=== PATIENT | female | born 1965 | race Caucasian/White ===

== ENCOUNTER 2018-09-15 11:50 | Inpatient (IN) | payer OTHER ==
--- OUTSIDE RECORDS SUMMARY | 2018-09-15 11:53 | XMS REPORT ---
:1965 Author Organization eClinicalWorks Care Team Providers Name Role Phone Rose Marie Landis Provider Role Unavailable Allergies, Adverse Reactions, Alerts Substance Reaction Event Type N.K.D.A. 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 Assessment Tachycardia R00.0 Active Problem Hypertension I10 Active Problem Hypothyroidism E03.9 Active Problem Hyperlipidemia E78.5 Active Problem Chronic obstructive pulmon disease w J44.0 Active acute lower resp infct Problem Abnormal kidney function study R94.4 Active Problem Hyponatremia E87.1 Active Problem Goiter E04.9 Active Medications Medication Code Code Instructions Start End Status Dosage System Date Date Anoro Ellipta [facility] [place] [id number] 62.5mcg/25 mcg Active not Orally defined Levothyroxine ND 30994215423 75 MCG Orally Active 1 tablet Sodium Once a day on an empty stomach in the morning Albuterol [facility] [place] [address]-63 108 (90 Base) Active 2 puffs as Sulfate HFA MCG/ACT needed Inhalation every 6 hrs Spiriva [facility] [place] 96677237529 18 MCG Active 1 capsule HandiHaler Inhalation Once a day PredniSONE [facility] [place] 13284800638 10 MG Orally Active 1 tablet Once a day Suboxone [facility] [place] [address]-16 8-2 MG Active 1 film Sublingual bid under the tongue and allow to dissolve Metoprolol [facility] [place] [id number] 25 MG Orally April 28, Active 1 tablet Succinate ER Once a day 2018 Results No Known Results Summary Purpose eClinicalWorks Submission
--- NOTE | 2018-09-15 14:20 | EDPHYS ---
Physician Documentation [facility] Name: Samantha Smart Age: 53 yrs Sex: Female : 1965 Arrival Date: 09/15/2018 Time: 11:57 Bed 25 Private MD: None, None ED Physician Stewart Reich HPI: 09/15 13:45 This 53 yrs old Female presents to ER via Ambulatory with complaints of COPD michelle Exacerbation, Vomiting, Headache. 13:45 The patient presents to the emergency department with nausea. Onset: The michelle symptoms/episode began/occurred just prior to arrival. 13:46 The patient has shortness of breath with light activity. The patient's shortness of michelle breath is aggravated by coughing, supine position, talking, walking. The patient complains of pain to the forehead, left temporal area and right temporal area. 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 - Social history:: Smoking status: Patient/guardian denies using tobacco. - Ebola Screening: : Patient negative for fever greater than or equal to 101.5 degrees Fahrenheit, and additional compatible Ebola Virus Disease symptoms Patient denies exposure to infectious person Patient denies travel to an Ebola-affected area in the 21 days before illness onset No symptoms or risks identified at this time. - Family history:: not pertinent. ROS: 13:46 Constitutional: Negative for fever, chills, and weight loss, Eyes: Negative for injury, michelle pain, redness, and discharge, ENT: Negative for injury, pain, and discharge, Neck: Negative for injury, pain, and swelling, Cardiovascular: Negative for chest pain, palpitations, and edema, Abdomen/GI: Negative for abdominal pain, nausea, vomiting, diarrhea, and constipation, Back: Negative for injury and pain, : Negative for injury, bleeding, discharge, and swelling, MS/Extremity: Negative for injury and deformity, Skin: Negative for injury, rash, and discoloration, Psych: Negative for depression, anxiety, suicide ideation, homicidal ideation, and hallucinations, Allergy/Immunology: Negative for hives, rash, and allergies, Endocrine: Negative for neck swelling, polydipsia, polyuria, polyphagia, and marked weight changes. 13:46 Respiratory: Positive for cough, shortness of breath, wheezing, inspiratory, expiratory. Exam: 13:46 Constitutional: This is a well developed, well nourished patient who is awake, alert, michelle and in no acute distress. Head/Face: Normocephalic, atraumatic. Eyes: Pupils equal round and reactive to light, extra-ocular motions intact. Lids and lashes normal. Conjunctiva and sclera are non-icteric and not injected. Cornea within normal limits. Periorbital areas with no swelling, redness, or edema. ENT: Nares patent. No nasal discharge, no septal abnormalities noted. Tympanic membranes are normal and external auditory canals are clear. Oropharynx with no redness, swelling, or masses, exudates, or evidence of obstruction, uvula midline. Mucous membranes moist. Neck: Trachea midline, no thyromegaly or masses palpated, and no cervical lymphadenopathy. Supple, full range of motion without nuchal rigidity, or vertebral point tenderness. No Meningismus. Chest/axilla: Normal chest wall appearance and motion. Nontender with no deformity. No lesions are appreciated. Abdomen/GI: Soft, non-tender, with normal bowel sounds. No distension or tympany. No guarding or rebound. No evidence of tenderness throughout. Back: No spinal tenderness. No costovertebral tenderness. Full range of motion. Skin: Warm, dry with normal turgor. Normal color with no rashes, no lesions, and no evidence of cellulitis. MS/ Extremity: Pulses equal, no cyanosis. Neurovascular intact. Full, normal range of motion. Neuro: Awake and alert, GCS 15, oriented to person, place, time, and situation. Cranial nerves II-XII grossly intact. Motor strength 5/5 in all extremities. Sensory grossly intact. Cerebellar exam normal. Normal gait. Psych: Awake, alert, with orientation to person, place and time. Behavior, mood, and affect are within normal limits. 13:46 Cardiovascular: Rate: normal, Rhythm: regular, Pulses: Pulses are 4+ in bilateral radial, brachial, femoral, popliteal, posterior tibial and and dorsalis pedis arteries.. Heart sounds: normal, Edema: is not appreciated. 13:46 Respiratory: mild respiratory distress is noted, Respirations: labored breathing, that is mild, that is moderate, Breath sounds: decreased breath sounds, rhonchi, that are mild, that are moderate, wheezing: inspiratory expiratory 13:46 Musculoskeletal/extremity: DVT Exam: No signs of deep vein thrombosis. no pain, no michelle swelling, no tenderness, negative Homans' sign noted on exam, no appreciated bluish discoloration, no erythema, no increased warmth. Vital Signs: 12:13 BP 109 / 93; Pulse 129; Resp 28 S; Temp 98.9(TE); Pulse Ox 93% on 2 lpm NC; Weight iw 68.49 kg; Height 5 ft. 2 in. (157.48 cm); Pain 10/10; 12:53 Pulse 109; Resp 19; Pulse Ox 93% on 2 lpm NC; aj1 13:45 BP 120 / 82; Pulse 98; Resp 20; Pulse Ox 96% on 2 lpm NC; aj1 14:45 BP 128 / 84; Pulse 98; Resp 18; Pulse Ox 95% on 2 lpm NC; aj1 15:59 BP 127 / 79; Pulse 96; Resp 15; Pulse Ox 100% on Nebulizer Mask; aj1 17:22 BP 125 / 80; Pulse 101; Resp 18; Pulse Ox 100% on 2 lpm NC; aj1 12:13 Body Mass Index 27.62 (68.49 kg, 157.48 cm) MDM: 12:58 Patient medically screened. [facility] 13:49 Data reviewed: vital signs, nurses notes, lab test result(s), EKG, radiologic studies, michelle plain films. 09/15 13:45 Order name: Basic Metabolic Panel; Complete Time: 16:08 [facility] 09/15 13:45 Order name: CBC with Diff; Complete Time: 16:08 [facility] 09/15 13:45 Order name: LFT's; Complete Time: 16:08 [facility] 09/15 13:45 Order name: Magnesium; Complete Time: 16:08 [facility] 09/15 13:45 Order name: NT PRO-BNP; Complete Time: 16:08 [facility] 09/15 13:45 Order name: PT-INR; Complete Time: 16:08 [facility] 09/15 13:45 Order name: Troponin (emerg Dept Use Only); Complete Time: 16:08 [facility] 09/15 13:45 Order name: XRAY Chest (1 view) [facility] 09/15 13:45 Order name: Blood Culture Adult (2) [facility] 09/15 13:45 Order name: CT Head Brain wo Cont [facility] 09/15 13:45 Order name: Procalcitonin; Complete Time: 16:08 [facility] 09/15 14:30 Order name: CT; Complete Time: 16:08 [facility] 09/15 15:16 Order name: Lactate [facility] 09/15 17:23 Order name: Lactate [facility] 09/15 13:45 Order name: EKG; Complete Time: 13:47 [facility] 09/15 13:45 Order name: Cardiac monitoring; Complete Time: 13:53 [facility] 09/15 13:45 Order name: EKG - Nurse/Tech; Complete Time: 13:53 [facility] 09/15 13:45 Order name: IV Saline Lock; Complete Time: 16:12 [facility] 09/15 13:45 Order name: Labs collected and sent; Complete Time: 16:12 [facility] 09/15 13:45 Order name: O2 Per Protocol; Complete Time: 13:53 [facility] 09/15 13:45 Order name: O2 Sat Monitoring; Complete Time: 13:53 [facility] 09/15 15:03 Order name: RAD; Complete Time: 16:08 [facility] 09/15 16:38 Order name: Labs - recollect needed; Complete Time: 17:19 bd Administered Medications: 15:52 Drug: Albuterol - atroVENT (3:1) (2.5 mg - 0.5 mg) 3 ml Route: Nebulizer; aj1 16:41 Follow up: Response: No adverse reaction aj1 16:08 Drug: SOLU-Medrol 125 mg Route: IVP; Site: right hand; aj1 16:40 Follow up: Response: No adverse reaction aj1 16:09 Drug: NS 0.9% 1000 ml Route: IV; Rate: 125 ml/hr; Site: right hand; aj1 16:09 Drug: levofloxacin 500 mg Volume: 100 ml; Route: IVPB; Infused Over: 60 mins; Site: aj1 right hand; 17:19 Follow up: IV Status: Completed infusion; IV Intake: 100ml aj 16:10 Drug: fentaNYL (PF) 50 mcg Route: IVP; Site: right hand; aj 16:41 Follow up: Response: No adverse reaction [facility] 16:10 Drug: Zofran 4 mg Route: IVP; Site: right hand; aj1 16:40 Follow up: Response: No adverse reaction [facility] Disposition: 09/15/18 14:19 Hospitalization ordered by Heri Ambrose for Inpatient Admission. Preliminary diagnosis are Chronic obstructive pulmonary disease with (acute) exacerbation, Headache, Hypoxemia, Acute maxillary sinusitis, unspecified, Chronic maxillary sinusitis. - Bed requested for Telemetry/MedSurg (Inpatient). - Status is Inpatient Admission. aj1 - Condition is Fair. - Problem is new. - Symptoms have improved. UTI on Admission? No Signatures: Dispatcher [employer] EDMS Mirna Us Angela, RN RN aj Janna Gonzalez RN RN Stewart Reich MD MD cha Williams, Irene, RN RN Corrections: (The following items were deleted from the chart) 16:09 14:19 Hospitalization Ordered by Heri Ambrose MD for Inpatient Admission. Preliminary [facility] diagnosis is Chronic obstructive pulmonary disease with (acute) exacerbation; Headache; Hypoxemia. Bed requested for Telemetry/MedSurg (Inpatient). Status is Inpatient Admission. Condition is Fair. Problem is new. Symptoms have improved. UTI on Admission? No. michelle 16:28 16:09 09/15/2018 14:19 Hospitalization Ordered by Heri Ambrose MD for Inpatient Admission. Preliminary diagnosis is Chronic obstructive pulmonary disease with (acute) exacerbation; Headache; Hypoxemia; Acute maxillary sinusitis, unspecified; Chronic maxillary sinusitis. Bed requested for Telemetry/MedSurg (Inpatient). Status is Inpatient Admission. Condition is Fair. Problem is new. Symptoms have improved. UTI on Admission? No. michelle 17:43 16:28 09/15/2018 14:19 Hospitalization Ordered by Heri Ambrose MD for Inpatient aj1 Admission. Preliminary diagnosis is Chronic obstructive pulmonary disease with (acute) exacerbation; Headache; Hypoxemia; Acute maxillary sinusitis, unspecified; Chronic maxillary sinusitis. Bed requested for Telemetry/MedSurg (Inpatient). Status is Inpatient Admission. Condition is Fair. Problem is new. Symptoms have improved. UTI on Admission? No. dw
--- NOTE | 2018-09-15 14:20 | ER ---
Nurse's Notes [facility] Name: Samantha Smart Age: 53 yrs Sex: Female : 1965 Arrival Date: 09/15/2018 Time: 11:57 Bed 25 Private MD: None, None Diagnosis: Chronic obstructive pulmonary disease with (acute) exacerbation;Headache;Hypoxemia;Acute maxillary sinusitis, unspecified;Chronic maxillary sinusitis Presentation: 09/15 12:09 Presenting complaint: Patient states: woke up and couldn't breathe, massive headache, iw indigestion in chest X 2 days that is constant, had a panic attack this morning, had migraine all week, hx of COPD, on home O2 2L NC, normally runs right above 90%, now is 93%, main complaint is her headache this morning, rates pain 10/10 in frontal area, hx of migraines but not on medication. Transition of care: patient was not received from another setting of care. Onset of symptoms was September 15, 2018. Risk Assessment: Do you want to hurt yourself or someone else? Patient reports no desire to harm self or others. Initial Sepsis Screen: Does the patient meet any 2 criteria? No. Patient's initial sepsis screen is negative. Does the patient have a suspected source of infection? No. Patient's initial sepsis screen is negative. Care prior to arrival: None. 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 - Social history:: Smoking status: Patient/guardian denies using tobacco. - Ebola Screening: : Patient negative for fever greater than or equal to 101.5 degrees Fahrenheit, and additional compatible Ebola Virus Disease symptoms Patient denies exposure to infectious person Patient denies travel to an Ebola-affected area in the 21 days before illness onset No symptoms or risks identified at this time. - Family history:: not pertinent. Screenin:53 Abuse screen: Denies threats or abuse. Denies injuries from another. Nutritional aj1 screening: No deficits noted. Tuberculosis screening: No symptoms or risk factors identified. 17:23 Fall Risk No fall in past 12 months (0 pts). No secondary diagnosis (0 pts). IV access aj1 (20 points). Ambulatory Aid- None/Bed Rest/Nurse Assist (0 pts). Gait- Weak (10 pts.). Mental Status- Oriented to own ability (0 pts). Total Turner Fall Scale indicates Low Risk Score (25-44 pts). As available Patient and Family Educated on Fall Prevention Program and strategies. Assessment: 12:53 General: Appears in no apparent distress. uncomfortable, Behavior is calm, cooperative, aj1 appropriate for age. Pain: Complains of pain in forehead and chest Pain does not radiate. Pain currently is 10 out of 10 on a pain scale. Quality of pain is described as pressure, Pain began Headache for the past week, chest pain for the past 2 days Is intermittent. Neuro: Level of Consciousness is awake, alert, obeys commands. Cardiovascular: Reports chest pain, shortness of breath, Denies palpitations, Heart tones S1 S2 present Patient's skin is warm and dry. Respiratory: Reports shortness of breath on exertion cough that is productive, Airway is patent Respiratory effort is even, unlabored, Respiratory pattern is regular, symmetrical, Breath sounds with wheezes bilaterally. the patient has mild shortness of breath. GI: Abdomen is non-distended, Bowel sounds present X 4 quads. Abd is soft and non tender X 4 quads. : No signs and/or symptoms were reported regarding the genitourinary system. EENT: No signs and/or symptoms were reported regarding the EENT system. Derm: No signs and/or symptoms reported regarding the dermatologic system. Skin is pink, warm \T\ dry. normal. Musculoskeletal: No signs and/or symptoms reported regarding the musculoskeletal system. Circulation, motion, and sensation intact. 13:50 Reassessment: Patient appears in no apparent distress at this time. No changes from aj1 previously documented assessment. Patient and/or family updated on plan of care and expected duration. Pain level reassessed. Patient is alert, oriented x 3, equal unlabored respirations, skin warm/dry/pink. 14:50 Reassessment: Patient and/or family updated on plan of care and expected duration. Pain aj1 level reassessed. General: Appears in no apparent distress. comfortable, Behavior is calm, cooperative, appropriate for age. Neuro: Level of Consciousness is awake, alert, obeys commands. Cardiovascular: Patient's skin is warm and dry. Respiratory: Airway is patent Respiratory effort is even, unlabored, Respiratory pattern is regular, symmetrical. GI: Abdomen is non-distended, No vomiting noted since patient's arrival to the ER. Derm: Skin is pink, warm \T\ dry. normal. Musculoskeletal: Circulation, motion, and sensation intact. 15:57 Reassessment: Patient appears in no apparent distress at this time. No changes from aj1 previously documented assessment. Patient and/or family updated on plan of care and expected duration. Pain level reassessed. Patient is alert, oriented x 3, equal unlabored respirations, skin warm/dry/pink. 17:20 Reassessment: Patient and/or family updated on plan of care and expected duration. Pain aj1 level reassessed. General: Appears in no apparent distress. comfortable, Behavior is calm, cooperative, appropriate for age. Neuro: Level of Consciousness is awake, alert, obeys commands. Cardiovascular: Patient's skin is warm and dry. Respiratory: Airway is patent Respiratory effort is even, unlabored, Respiratory pattern is regular, symmetrical. GI: Abdomen is non-distended. Derm: No signs and/or symptoms reported regarding the dermatologic system. Skin is pink, warm \T\ dry. normal. Musculoskeletal: No signs and/or symptoms reported regarding the musculoskeletal system. Circulation, motion, and sensation intact. Vital Signs: 12:13 BP 109 / 93; Pulse 129; Resp 28 S; Temp 98.9(TE); Pulse Ox 93% on 2 lpm NC; Weight iw 68.49 kg; Height 5 ft. 2 in. (157.48 cm); Pain 10/10; 12:53 Pulse 109; Resp 19; Pulse Ox 93% on 2 lpm NC; aj1 13:45 BP 120 / 82; Pulse 98; Resp 20; Pulse Ox 96% on 2 lpm NC; aj1 14:45 BP 128 / 84; Pulse 98; Resp 18; Pulse Ox 95% on 2 lpm NC; aj1 15:59 BP 127 / 79; Pulse 96; Resp 15; Pulse Ox 100% on Nebulizer Mask; aj1 17:22 BP 125 / 80; Pulse 101; Resp 18; Pulse Ox 100% on 2 lpm NC; aj1 12:13 Body Mass Index 27.62 (68.49 kg, 157.48 cm) iw ED Course: 11:57 Patient arrived in ED. sb2 11:58 None, None is Private Physician. sb2 12:12 Triage completed. iw 12:13 Arm band placed on. iw 12:31 Christa Webb, HUMAIRA is Primary Nurse. aj1 12:50 Missed attempt(s): 22 gauge in left antecubital area. Bleeding controlled, band aid aj1 applied, catheter tip intact. 12:53 Patient has correct armband on for positive identification. Bed in low position. Call aj1 light in reach. Side rails up X 1. hall monitor on. Pulse ox on. NIBP on. 12:53 No provider procedures requiring assistance completed. aj1 12:57 Missed attempt(s): 24 gauge in left antecubital area. Bleeding controlled, band aid aj1 applied, catheter tip intact. 12:58 Stewart Reich MD is Attending Physician. michelle 14:18 Heri Ambrose MD is Hospitalizing Provider. michelle 14:20 X-ray completed. Portable x-ray completed in exam room. Patient tolerated procedure ls3 well. 15:00 Initial lab(s) drawn, by me, sent to lab. First set of blood cultures drawn by me. sg Inserted saline lock: 24 gauge in right hand, using aseptic technique. Blood collected. 15:15 Second set of blood cultures drawn by me. sg 15:59 Lactate Sent. jp3 15:59 Lab(s) recollected, by me, sent to lab. jp3 17:24 Patient admitted, IV remains in place. aj1 17:25 Report given to HUMAIRA Thomson on 2nd floor. aj1 Administered Medications: 15:52 Drug: Albuterol - atroVENT (3:1) (2.5 mg - 0.5 mg) 3 ml Route: Nebulizer; aj1 16:41 Follow up: Response: No adverse reaction aj1 16:08 Drug: SOLU-Medrol 125 mg Route: IVP; Site: right hand; aj1 16:40 Follow up: Response: No adverse reaction aj1 16:09 Drug: NS 0.9% 1000 ml Route: IV; Rate: 125 ml/hr; Site: right hand; aj1 16:09 Drug: levofloxacin 500 mg Volume: 100 ml; Route: IVPB; Infused Over: 60 mins; Site: aj right hand; 17:19 Follow up: IV Status: Completed infusion; IV Intake: 100ml aj1 16:10 Drug: fentaNYL (PF) 50 mcg Route: IVP; Site: right hand; aj1 16:41 Follow up: Response: No adverse reaction aj1 16:10 Drug: Zofran 4 mg Route: IVP; Site: right hand; aj1 16:40 Follow up: Response: No adverse reaction aj1 Intake: 17:19 IV: 100ml; Total: 100ml. aj1 Outcome: 14:19 Decision to Hospitalize by Provider. michelle 17:41 Admitted to Tele accompanied by tech, via stretcher. aj1 17:41 Condition: stable 17:41 Discharge instructions given to patient, Instructed on the need for admit, Demonstrated understanding of instructions. 17:43 Patient left the ED. aj1 Signatures: Christa Webb RN RN aj1 Fabian Kwan, RN Stewart Encinas MD MD cha Williams, Irene, RN Liliana Duke2 Jose Carlos Mckinney jp3 Angela Morgan ls3
--- NOTE | 2018-09-15 14:29 | RAD REPORT ---
EXAM DESCRIPTION: CT - Head Brain Wo Cont - 09/15/2018 2:20 pm CLINICAL HISTORY: Severe headache COMPARISON: December 2010 TECHNIQUE: Axial 5 mm thick images of the head were obtained without IV contrast. All CT scans are performed using dose optimization technique as appropriate and may include automated exposure control or mA/KV adjustment according to patient size. FINDINGS: No intracranial hemorrhage, mass, edema or shift of mid-line structures. No acute infarcti on changes seen. No abnormal extra-axial fluid collections. Ventricles are normal. Mastoid air cells are clear. Air-fluid level present in the left maxillary sinus along with sclerotic thickened maxillary sinus courtney. No acute bony findings. IMPRESSION: No intracranial abnormality. Acute and chronic left maxillary sinusitis similar to 2010.
--- NOTE | 2018-09-15 15:02 | RAD REPORT ---
EXAM DESCRIPTION: RAD - Chest Single View - 09/15/2018 2:46 pm CLINICAL HISTORY: Cough, fever, congestion COMPARISON: May 2017 TECHNIQUE: AP portable chest image was obtained . FINDINGS: Lungs are clear. Heart and vasculature are normal. No measurable pleural effusion and no p neumothorax. No acute bony abnormality seen. No acute aortic findings suspected. IMPRESSION: No acute cardiopulmonary process.
[2018-09-15 15:31] LABS: Absolute Lymphocytes (CBC) 0.9 K/uL (0.7-4.9); Absolute Monocytes 0.7 K/uL (0.1-1.3); Absolute Neutrophil 5.4 K/uL (1.8-8.0); Basophils % 0.9 % (0-1.3); Eosinophils % 0.4 % (0-4.4); Hematocrit 45.8 % (36.0-45.0); Lymphocytes % 12.4 % (15.3-44.8); MCH 31.9 pg (27.0-35.0); MCV 96.1 fL (80-100); MPV 9.5 fL (7.6-11.3); Monocytes % 10.2 % (3.3-12.3); RBC Red Blood Cell Count 4.76 M/uL (3.86-4.86)
[2018-09-15 15:36] LABS: Protime INR 1.07
[2018-09-15] MEDS ORDERED: METHYLPREDNISOLONE 125 MG INJ ONE (15:38)
[2018-09-15] MEDS ORDERED: ALBUTEROL 2.5 MG/3 ML NEB SOL ONE (15:38)
[2018-09-15] MEDS ORDERED: ONDANSETRON 4 MG/2 ML VIAL ONE (15:39)
[2018-09-15] MEDS ORDERED: FENTANYL CITR 100 MCG/2 ML ONE (15:39)
[2018-09-15] MEDS ORDERED: NA CHLORIDE 0.9% 1,000 ML ONE (15:39)
[2018-09-15] MEDS ORDERED: IPRATROPIUM BROM 0.5MG/2.5ML ONE (15:39)
[2018-09-15] MEDS ORDERED: Levofloxacin500mg IV 500 MG/100 ML BAG IV ONE (15:52)
--- NOTE | 2018-09-15 16:05 | EKG ---
Test Date: 2018-09-15 Test Time: 12:27:54 Instructor Bridge: ARNOLD MEASUREMENT RESULTS: Intervals: Rate: 125 MI: 162 QRSD: 52 QT: 304 QTc: 438 [place]: P: 79 MI: 162 QRS: 79 T: 90 INTERPRETIVE STATEMENTS: Sinus tachycardia Right atrial enlargement Anteroseptal infarct, age undetermined Abnormal ECG Compared to ECG 06/19/2017 06:26:55 Atrial abnormality now present Myocardial infarct finding now present Sinus rhythm no longer present Electronically Signed On 09-15-18 16:05:12 PERIODICALS LIBRARY ASSISTANT by Ken Pruitt
[2018-09-15 16:06] LABS: ALT/SGPT 79 U/L (12-78); AST/SGOT 78 U/L (15-37); Albumin 3.4 g/dL (3.4-5.0); Alkaline Phosphatase 102 U/L (45-117); BUN Blood Urea Nitrogen 17 mg/dL (7-18); Bicarbonate 32 mmol/L (21-32); Bilirubin Direct 0.2 mg/dL (0-0.2); Bilirubin Total 0.6 mg/dL (0.2-1.0); Glucose Level 93 mg/dL (74-106); Magnesium 2.1 mg/dL (1.8-2.4); NT PRO-BNP 302 pg/mL (<125); Potassium 3.8 mmol/L (3.5-5.1); Sodium Level 139 mmol/L (136-145); Troponin (Emerg Dept Use Only) < 0.02 ng/mL (0.0-0.045)
[2018-09-15] MEDS: ACETAMINOPHEN 500 MG TAB PO PRN (18:52)
[2018-09-15] MEDS: ENOXAPARIN 40 MG/0.4 ML SQ SCH (18:53)
[2018-09-15 18:56] VITALS: BMI 27.8
[2018-09-15] MEDS ORDERED: METHYLPREDNISOLONE 125 MG INJ IV SCH (19:00)
--- NOTE | 2018-09-15 19:42 | P.HP ---
Patient History Date of Service: 09/15/18 Reason for admission: Shortness of breath History of Present Illness: This is a 53-year-old female with history of COPD on home oxygen of 2 L, chronic back pain admitted for shortness of breath. Starting this morning, stated that her breathing had gotten worse, she could hardly breathe even after using her inhaler and medications which is why she came to the ER. She denies any fever, chills, cough, chest pain, nausea or vomiting, abdominal pain, vision changes. She does endorse a headache at this time. In the ER, her chest x-ray was normal, her labs were stable, she was hemodynamically stable though she was still having some trouble breathing. At the time of my exam, she was getting a breathing treatment, was not able to talk in complete sentences though stated that her symptoms have slightly improved. She is being admitted for further treatment of COPD exacerbation Allergies iodine Allergy (Verified 01/19/17 14:26) Unknown Sulfa (Sulfonamide Antibiotics) Allergy (Verified 01/19/17 14:26) Unknown band-aid Allergy (Uncoded 01/19/17 14:26) Rash Home Medications: Tiotropium [Spiriva Handihaler*] 18 mcg IH DAILY 01/19/17 Fluticasone/Salmeterol [Advair 250/50 Diskus*] 1 puff IH BID #1 disk 01/24/17 predniSONE [Deltasone*] 10 mg PO DAILY #14 tab 01/24/17 Buprenorphine HCl/Naloxone HCl [Suboxone 8 mg-2 mg Sl Film] 1 tab PO BID Esomeprazole Mag Trihydrate [Nexium] 1 cap PO DAILY 06/18/17 levoFLOXacin [Levaquin*] 500 mg PO DAILY #7 tab 06/20/17 - Past Medical/Surgical History Diabetic: No -: COPD -: Chronic steroid use -: Chronic pain -: Tobacco abuse -: Hysterectomy -: Appendectomy -: Tonsillectomy Psychosocial/ Personal History: The patient is single. She has 3 children. - Social History Alcohol use: No CD- Drugs: No Caffeine use: Yes Review of Systems General: Unremarkable Eyes: Unremarkable ENT: Unremarkable Respiratory: Shortness of Breath, As per HPI Cardiovascular: Unremarkable Gastrointestinal: Unremarkable Genitourinary: Unremarkable Musculoskeletal: Unremarkable Integumentary: Unremarkable Neurological: Unremarkable Physical Examination - Vital Signs Temperature: 97.5 F Blood Pressure: 103/69 Pulse: 91 Respirations: 20 Pulse Ox (%): 92 - Physical Exam General: Alert, In no apparent distress, Oriented x3 HEENT: Atraumatic, PERRLA, Mucous membr. moist/pink, EOMI, Sclerae nonicteric Neck: Supple, 2+ carotid pulse no bruit, No LAD, Without JVD or thyroid abnormality Respiratory: Diminished, Crackles/rales, Expiratory wheezes, Inspiratory wheezes Cardiovascular: Regular rate/rhythm, Normal S1 S2 Gastrointestinal: Normal bowel sounds, No tenderness Musculoskeletal: No tenderness Integumentary: No rashes Neurological: Normal gait, Normal speech, Normal strength at 5/5 x4 extr, Normal tone, Normal affect Lymphatics: No axilla or inguinal lymphadenopathy Assessment and Plan - Plan This is a 53-year-old female with: COPD exacerbation Chronic back pain Elevated LFTs Admit to the floor, with tele. Continue breathing treatments as needed, oxygen as needed. IV Steroids q.6 ordered. Will restart home medications once reconciled. May need CT chest and pulmonary consult if no improvement noted. Monitor labs, including LFTs tomorrow morning. May need further evaluation if continues to be elevated. Disposition: Continue to monitor, pending symptomatic improvement. - Advance Directives Does patient have a Living Will: No Does patient have a Durable POA for Healthcare: No Physician Review: Patient Assessed, Agree with Above Assessment and Plan Time Spent Managing Pts Care (In Minutes): 55
[2018-09-15] MEDS: ALBUTEROL 2.5 MG/3 ML NEB SOL NEB SCH (19:59)
[2018-09-15] MEDS: IPRATROPIUM BROM 0.5MG/2.5ML NEB SCH (19:59)
[2018-09-15] MEDS ORDERED: POTASSIUM CL SA 10 MEQ TAB PO ONE (21:00)
[2018-09-15] MEDS ORDERED: PNEUMOCOCCAL VACCINE 0.5 ML IMVAC ONE (23:00)
[2018-09-15] MEDS ORDERED: INFLUENZA VACCINE (for 3y+) 0.5 ML DOSE IMVAC ONE (23:00)
[2018-09-15] MEDS: METHYLPREDNISOLONE 125 MG INJ IV SCH (23:20)
[2018-09-16] MEDS: ALBUTEROL 2.5 MG/3 ML NEB SOL NEB SCH ×4 (01:06→19:57)
[2018-09-16] MEDS: IPRATROPIUM BROM 0.5MG/2.5ML NEB SCH ×4 (01:06→19:57)
[2018-09-16] MEDS: METHYLPREDNISOLONE 125 MG INJ IV SCH ×2 (05:29→11:47)
[2018-09-16] MEDS: ONDANSETRON 4 MG/2 ML VIAL IV PRN (05:31)
[2018-09-16 05:55] LABS: Absolute Lymphocytes (CBC) 0.7 K/uL (0.7-4.9); Absolute Monocytes 0.1 K/uL (0.1-1.3); Absolute Neutrophil 3.6 K/uL (1.8-8.0); Basophils % 0.3 % (0-1.3); Hematocrit 41.8 % (36.0-45.0); Lymphocytes % 15.1 % (15.3-44.8); MCV 96.8 fL (80-100); Monocytes % 2.4 % (3.3-12.3); RBC Red Blood Cell Count 4.32 M/uL (3.86-4.86)
[2018-09-16 06:19] LABS: Albumin 2.9 g/dL (3.4-5.0); Bilirubin Total 0.3 mg/dL (0.2-1.0); Magnesium 2.2 mg/dL (1.8-2.4); Phosphorus 3.3 mg/dL (2.5-4.9); Potassium 4.8 mmol/L (3.5-5.1); Protein, Total 6.5 g/dL (6.4-8.2)
[2018-09-16] MEDS: ACETAMINOPHEN 500 MG TAB PO PRN (07:42)
[2018-09-16 08:45] LABS: Blood Morphology Comment NOT SEEN (NOT SEEN); Urine White Blood Cell Casts OK
[2018-09-16 08:46] LABS: Platelet Estimate DECR
--- NOTE | 2018-09-16 09:04 | RAD REPORT ---
EXAM DESCRIPTION: Omaira Beatty (2 Views)09/16/2018 6:35 am CLINICAL HISTORY: Shortness of breath COMPARISON: September 15 FINDINGS: The lungs are markedly hyperaerated. The lungs appear clear of acute infiltrate. The heart is normal size IMPRESSION: COPD without visualization of an acute abnormality
[2018-09-16] MEDS: PROMETHAZINE 25 MG/ML VIAL IV PRN ×2 (09:40→19:40)
[2018-09-16] MEDS: ENOXAPARIN 40 MG/0.4 ML SQ SCH (09:40)
[2018-09-16] MEDS: BUPRENORPHINE HCL PO SCH (21:00)
[2018-09-16] MEDS: NALOXONE HCL PO SCH (21:00)
[2018-09-16] MEDS: HOME MED 1 EA UNK (Fluticasone/Salmeterol [Advair 250/50 Diskus*] 1 PUFF) IH SCH (21:00)
[2018-09-16] MEDS: METHYLPREDNISOLONE 40 MG INJ IV SCH (21:36)
--- NOTE | 2018-09-16 21:52 | PN ---
Date of Progress Note: 09/16/2018 Subjective: The patient was seen and examined. Chart reviewed, and case discussed with RN. The pat vidhya overall states she is feeling better. Review of Systems: Negative except as above. Medications: List reviewed. Physical Examination: Vital Signs: Temperature 97.8, heart rate 68, blood pressure 119/64, respirations 17, and O2 94% on 2 L via nasal cannula. General: Awake, alert, and oriented x3. Some mild respiratory distress. CV: S1, S2. Regular rate and rhythm. Peripheral pulses present. No murmurs. Respiratory: Diminished breath sounds. Some mild wheezing. No use of accessory muscles. No strido r. Gastrointestinal: Abdomen is soft, nontender, and nondistended. Positive bowel sounds. Extremities: No clubbing, cyanosis, or edema. Neurologic: Nonfocal. Cranial nerves 2-12 intact grossly. Speech is normal. Skin: No rashes. Normal skin turgor. Laboratory Data: Sodium 136, potassium 4.8, chloride 102, CO2 28, BUN 19, creatinine 1, glucose 131, calcium 8.3, and phosphorus 3.3, and magnesium 2.2. WBC 4.3, H and H 13.8 and 41.8, platelets 127, and neutrophils 82%. Chest x-ray, I personally reviewed, shows COPD, no acute infiltrate. Assessment And Plan: A 53-year-old female with: 1.Acute COPD exacerbation. We will continue with IV steroids and nebulizer treatments. Consult Pul monology. Use supplemental oxygen as needed. 2.Chronic back pain, midline, without sciatica. 3.Elevated liver enzymes, improving. 4.Chronic steroid use. 5.Gastroesophageal reflux disease without esophagitis. Continue PPI. 6.Nicotine dependence with cigarette smoking, continuous. Counseled. Follow up with pulmonology recs. Continue with current treatment. Blood cultures negative to date. Chest x-ray reviewed, clear of any infiltrates. Discharge in the next 24-48 hours depending on clin ical response. SA/MODL Voice ID: [id number] Report ID: [id number]
[2018-09-17] MEDS: ALBUTEROL 2.5 MG/3 ML NEB SOL NEB SCH ×4 (01:26→19:35)
[2018-09-17] MEDS: IPRATROPIUM BROM 0.5MG/2.5ML NEB SCH ×4 (01:26→19:35)
[2018-09-17 06:07] LABS: Absolute Monocytes 0.6 K/uL (0.1-1.3); Absolute Neutrophil 11.2 K/uL (1.8-8.0); Basophils % 0.2 % (0-1.3); Hematocrit 42.2 % (36.0-45.0); Lymphocytes % 7.6 % (15.3-44.8); MCH 32.5 pg (27.0-35.0); MCV 96.2 fL (80-100); MPV 10.3 fL (7.6-11.3); Monocytes % 4.6 % (3.3-12.3); RBC Red Blood Cell Count 4.39 M/uL (3.86-4.86)
[2018-09-17 06:20] LABS: Bilirubin Total 0.2 mg/dL (0.2-1.0); Potassium 5.1 mmol/L (3.5-5.1); Protein, Total 6.6 g/dL (6.4-8.2)
[2018-09-17] MEDS ORDERED: HOME MED 1 EA UNK (Esomeprazole Mag Trihydrate [Nexium] 1 CAP) PO SCH (06:30)
[2018-09-17] MEDS: PANTOPRAZOLE 40MG TABLET PO SCH (06:43)
[2018-09-17 08:03] LABS: Blood Morphology Comment NOT SEEN (NOT SEEN); Platelet Estimate ADEQ
[2018-09-17] MEDS: HOME MED 1 EA UNK (Fluticasone/Salmeterol [Advair 250/50 Diskus*] 1 PUFF) IH SCH ×2 (09:00→21:00)
[2018-09-17] MEDS: NALOXONE HCL PO SCH ×2 (09:00→21:00)
[2018-09-17] MEDS: ENOXAPARIN 40 MG/0.4 ML SQ SCH (09:00)
[2018-09-17] MEDS: BUPRENORPHINE HCL PO SCH ×2 (09:00→21:00)
[2018-09-17] MEDS: METHYLPREDNISOLONE 40 MG INJ IV SCH ×2 (09:01→21:33)
[2018-09-17] MEDS: ACETAMINOPHEN 500 MG TAB PO PRN ×4 (09:06→21:32)
[2018-09-17] MEDS: ONDANSETRON 4 MG/2 ML VIAL IV PRN (12:08)
--- NOTE | 2018-09-17 16:04 | PN ---
Date of Progress Note: 09/17/2018 History: The patient seen and examined. Chart reviewed and case discussed with RN. The patient sti ll having significant amount of wheezing, still very short of breath. Review of Systems: Negative except as above. Medications: List reviewed. Physical Examination: Vital Signs: Temperature 97, heart rate 87, blood pressure 124/74, respirations 19, O2 90% on 2 L vi a nasal cannula. General: Awake, alert, oriented x3, in some mild respiratory distress. Ill-appearing female. CV: S1, S2. Regular rate and rhythm. Peripheral pulses present. No murmurs. Respiratory: Diminished breath sounds. Wheezing heard throughout. The patient does not have any st ridor. Gastrointestinal: Abdomen is soft, nontender, nondistended. Positive bowel sounds. Extremities: No clubbing, cyanosis, or edema. Neurologic: Nonfocal. Laboratory Data: Sodium 141, potassium 5.1, chloride 103, CO2 31, BUN 23, creatinine 1.1, glucose 12 3, calcium 8.7. WBC 12.8, H and H 14.2 and 42.2, platelets 148, neutrophils 87%, 2% bands. Blood cu ltures no growth to date. Sputum cultures pending. Assessment And Plan: A 53-year-old female with: 1.Acute chronic obstructive pulmonary disease exacerbation. The patient is still having significant amount of wheezing, very short of breath with minimal movement. We will continue nebulizer treatmen ts and IV steroids. Pulmonology has been consulted. Continue supplemental oxygen. 2.Elevated liver enzymes, improving. 3.Chronic steroid use. 4.Chronic back pain, midline, without sciatica. 5.Gastroesophageal reflux disease without esophagitis. 6.Nicotine dependence with cigarette smoking. 7.Overweight, BMI 27.8. Plan: The patient still not out of acute respiratory distress secondary to her COPD. We will contin ue to monitor closely. Discharge in the 48-72 hours depending on clinical response. /AYE Voice ID: [id number] Report ID: [id number]
[2018-09-17] MEDS: PROMETHAZINE 25 MG/ML VIAL IV PRN (17:29)
[2018-09-18] MEDS: ALBUTEROL 2.5 MG/3 ML NEB SOL NEB SCH ×4 (01:50→19:54)
[2018-09-18] MEDS: IPRATROPIUM BROM 0.5MG/2.5ML NEB SCH ×4 (01:50→19:54)
[2018-09-18 03:13] LABS: Urine Appearance CLEAR; Urine Bilirubin NEGATIVE (NEG); Urine Blood NEGATIVE (NEG); Urine Color YELLOW; Urine Glucose NEGATIVE (NEG); Urine Protein NEGATIVE (NEG); Urine Urobilinogen 0.2 mg/dL (0.2-1.0); Urine pH 6.5 (5.0-7.0)
[2018-09-18 03:24] LABS: Urine Microscopic Reflex NO UMIC
[2018-09-18] MEDS: ACETAMINOPHEN 500 MG TAB PO PRN ×2 (04:29→18:49)
[2018-09-18] MEDS: PANTOPRAZOLE 40MG TABLET PO SCH (05:46)
[2018-09-18 06:06] LABS: Absolute Lymphocytes (CBC) 0.9 K/uL (0.7-4.9); Absolute Monocytes 0.5 K/uL (0.1-1.3); Absolute Neutrophil 13.2 K/uL (1.8-8.0); Basophils % 0.2 % (0-1.3); Hematocrit 43.2 % (36.0-45.0); Lymphocytes % 6.2 % (15.3-44.8); MCV 96.5 fL (80-100); MPV 10.1 fL (7.6-11.3); Monocytes % 3.3 % (3.3-12.3); RBC Red Blood Cell Count 4.47 M/uL (3.86-4.86)
[2018-09-18 06:39] LABS: Bilirubin Total 0.2 mg/dL (0.2-1.0); Protein, Total 6.8 g/dL (6.4-8.2)
[2018-09-18] MEDS: HOME MED 1 EA UNK (Fluticasone/Salmeterol [Advair 250/50 Diskus*] 1 PUFF) IH SCH ×2 (09:00→20:30)
[2018-09-18] MEDS: NALOXONE HCL PO SCH ×2 (09:00→20:30)
[2018-09-18] MEDS: BUPRENORPHINE HCL PO SCH ×2 (09:00→20:30)
[2018-09-18] MEDS: METHYLPREDNISOLONE 40 MG INJ IV SCH (09:35)
[2018-09-18] MEDS: ENOXAPARIN 40 MG/0.4 ML SQ SCH (09:35)
--- NOTE | 2018-09-18 14:25 | P.CNS ---
Date of Consult: 09/18/18 Reason for Consult: COPD exacerbation Chief Complaint: Shortness of breath History of Present Illness: Patient is 53 years of age well known to me with a history of severe COPD admitted with worsening cough congestion in the hospital for 3 days was sick for about a week or so been stable for a while recently has improved since admission Allergies iodine Allergy (Verified 09/15/18 21:15) Unknown Sulfa (Sulfonamide Antibiotics) Allergy (Verified 09/15/18 21:15) Unknown band-aid Allergy (Uncoded 09/15/18 21:15) Rash Home Medications: Fluticasone/Salmeterol [Advair 250/50 Diskus*] 1 puff IH BID #1 disk 01/24/17 predniSONE [Deltasone*] 10 mg PO DAILY #14 tab 01/24/17 Buprenorphine HCl/Naloxone HCl [Suboxone 8 mg-2 mg Sl Film] 1 tab PO BID Esomeprazole Mag Trihydrate [Nexium] 1 cap PO 0630 06/18/17 - Past Medical/Surgical History Diabetic: No -: COPD -: Chronic steroid use -: Chronic pain -: Tobacco abuse -: Hysterectomy -: Appendectomy -: Tonsillectomy Psychosocial/ Personal History: The patient is single. She has 3 children. - Family History Father Medical History: Heart disease, Lung disease, Kidney disease Notes: of asbestosis Mother Medical History: Heart disease Notes: of cardiac arrest - Social History Smoking Status: Current every day smoker Alcohol use: No CD- Drugs: No Caffeine use: Yes Place of Residence: Home Review of Systems General: Weakness Respiratory: Cough, Shortness of Breath Physical Examination Temp Pulse Resp BP Pulse Ox 97.6 F 93 H 16 146/82 H 95 09/18/18 12:00 09/18/18 12:00 09/18/18 12:00 09/18/18 12:00 09/18/18 12:00 General: Alert, Oriented x3, Mild distress Neck: Supple Respiratory: Expiratory wheezes Cardiovascular: No edema, Regular rate/rhythm Gastrointestinal: Normal bowel sounds, Soft and benign - Problems (1) COPD exacerbation Onset Date: 09/16/18 Current Visit: Yes Status: Acute Plan: Patient is 53 years of age admitted with COPD exacerbation white count normal admission chest x-ray shows COPD changes patient's P sputum so far cultures and negative Dc Solu-Medrol
--- NOTE | 2018-09-18 18:21 | PN ---
Date of Progress Note: 09/18/2018 Subjective: The patient is seen and examined. Chart reviewed and case discussed with RN. The patie nt is still having some wheezing, however, somewhat improved. Does get short of breath with ambulati on. Review of Systems: Negative except as above. Medication: Medication list reviewed. Physical Examination: Vital Signs: Temperature 97.6, heart rate 93, blood pressure 146/82, respirations 16, O2 95% on 2 L via nasal cannula. General: Awake, alert, oriented x3, somewhat ill-appearing female. CV: S1, S2. Sinus tachycardia. No murmurs. Peripheral pulses present. Respiratory: Diminished breath sounds. Wheezing heard throughout, somewhat improved from yesterday. Gastrointestinal: Abdomen is soft, nontender, nondistended. Positive bowel sounds. No guarding or rigidity. Extremities: No clubbing, cyanosis, edema. Neurologic: Nonfocal. Laboratory Data: Sodium 139, potassium 5, chloride 103, CO2 30, BUN 32, creatinine 1.1, glucose 133, calcium 8.6. WBC 14.6, H and H 14.3 and 43.2, platelets 163, neutrophils 90%, no bands. Assessment And Plan: A 53-year-old female with: 1.Tpxsw-ic-uwgxfni obstructive pulmonary disease exacerbation. The patient is dyspneic with exertio n, is on 3 L of oxygen. We will continue nebulizer treatments and IV steroids. We will follow up [facility] Pulmonology recommendations. 2.Elevated liver enzymes trending down, now normalized. 3.Chronic steroid use. 4.Chronic respiratory failure. The patient is on home oxygen due to chronic obstructive pulmonary d isease. 5.Chronic back pain, midline, without sciatica, stable. 6.Gastroesophageal reflux disease without esophagitis. Continue PPI. 7.Nicotine dependence. Cigarette smoking, counseled. 8.Overweight, BMI 27.8. Plan: Likely discharge in the next 24 hours if continues to improve. We encouraged interval check O 2 sats with ambulation. SA/MODL Voice ID: [id number] Report ID: [id number]
[2018-09-18] MEDS: ONDANSETRON 4 MG/2 ML VIAL IV PRN (18:49)
[2018-09-18] MEDS: PROMETHAZINE 25 MG/ML VIAL IV PRN (20:29)
[2018-09-18] MEDS: predniSONE 20 MG TAB PO SCH (20:29)
[2018-09-19] MEDS: ALBUTEROL 2.5 MG/3 ML NEB SOL NEB SCH ×2 (01:58→07:40)
[2018-09-19] MEDS: IPRATROPIUM BROM 0.5MG/2.5ML NEB SCH ×2 (01:58→07:40)
[2018-09-19 05:22] LABS: Absolute Lymphocytes (CBC) 0.9 K/uL (0.7-4.9); Absolute Monocytes 0.6 K/uL (0.1-1.3); Absolute Neutrophil 8.6 K/uL (1.8-8.0); Basophils % 0.3 % (0-1.3); Hematocrit 43.3 % (36.0-45.0); Lymphocytes % 8.6 % (15.3-44.8); MCH 32.4 pg (27.0-35.0); MCV 96.9 fL (80-100); MPV 9.8 fL (7.6-11.3); Monocytes % 5.5 % (3.3-12.3); RBC Red Blood Cell Count 4.47 M/uL (3.86-4.86)
[2018-09-19 05:51] LABS: Albumin 2.9 g/dL (3.4-5.0); Bilirubin Total 0.2 mg/dL (0.2-1.0); Magnesium 2.4 mg/dL (1.8-2.4); Phosphorus 3.3 mg/dL (2.5-4.9); Potassium 4.7 mmol/L (3.5-5.1); Protein, Total 6.4 g/dL (6.4-8.2)
[2018-09-19] MEDS: ACETAMINOPHEN 500 MG TAB PO PRN (05:53)
[2018-09-19] MEDS: ONDANSETRON 4 MG/2 ML VIAL IV PRN (05:53)
[2018-09-19] MEDS: PANTOPRAZOLE 40MG TABLET PO SCH (05:57)
[2018-09-19] MEDS: PROMETHAZINE 25 MG/ML VIAL IV PRN (07:10)
[2018-09-19] MEDS: NALOXONE HCL PO SCH (09:00)
[2018-09-19] MEDS: HOME MED 1 EA UNK (Fluticasone/Salmeterol [Advair 250/50 Diskus*] 1 PUFF) IH SCH (09:00)
[2018-09-19] MEDS: BUPRENORPHINE HCL PO SCH (09:00)
[2018-09-19] MEDS: ENOXAPARIN 40 MG/0.4 ML SQ SCH (09:00)
[2018-09-19 09:09] VITALS: BP 137/85; TEMP 97.4
[2018-09-19] MEDS: predniSONE 20 MG TAB PO SCH (09:28)
[2018-09-19 11:06] VITALS: O2SAT 91
--- NOTE | 2018-09-20 14:09 | DS ---
Date of Discharge: 09/19/2018 Consultants: Dr. Garcia with Pulmonology. Admitting Diagnosis: 1.Acute chronic obstructive pulmonary disease exacerbation. 2.Elevated liver function tests. 3.Chronic back pain, midline, without sciatica. 4.Nicotine dependence with cigarette smoking, uncomplicated. 5.Gastroesophageal reflux disease without esophagitis, on PPI. Discharge Diagnosis: 1.Acute chronic obstructive pulmonary disease exacerbation, improving. 2.Elevated liver enzymes, normalized. 3.Chronic steroid use. 4.Chronic respiratory failure, on home oxygen due to chronic obstructive pulmonary disease. 5.Chronic back pain, midline, without sciatica. 6.Gastroesophageal reflux disease without esophagitis. 7.Nicotine dependence with cigarette smoking, uncomplicated. 8.Overweight, BMI 27.8. Hospital Course: The patient is a 53-year-old female with severe COPD with chronic respiratory failu re on home oxygen requiring 2 L all the time. The patient comes in with shortness of breath. She wa s found to be in a COPD exacerbation. Her chest x-ray did not reveal any infiltrates. Of note, the p atient is steroid dependent. The patient was started on IV steroids and breathing treatments. The p atient was slow to recover. She had significant amount of wheezing. Her mold maker helper, Dr. Garcia , was consulted who adjusted her medications. The patient is on Spiriva and Advair. The patient was not septic. Lactic acid and procalcitonin were negative. Her white count was mildly elevated due t o steroids and normalized. Her blood cultures remained negative. Sputum cultures showed normal resp iratory eh and yeast. Influenza screen was negative. The patient was then improving. She was ab le to ambulate with minimal dyspnea and was getting closer to her baseline. The patient was then lilo ared for discharge from Pulmonology standpoint. The patient will be sent home with course of antibio tics, short course of steroid taper. Medications: Per medication reconciliation list. Followup: Follow up with primary care physician in 2-3 days. Follow up with mold maker helper, Dr. Sukhdeep singletary, in 2 weeks. Return to ER for worsening condition. Diet: Heart healthy. Activity: No strenuous activity. Physical Examination: General: Awake, alert, oriented x3, in no acute distress. CV: S1, S2. Regular rate and rhythm. Respiratory: Moving air well, however, still has some wheezing but significantly improved. No tachy pnea. No use of accessory muscles. No stridor. Gastrointestinal: Abdomen is soft, nontender, nondistended. Positive bowel sounds. Extremities: No clubbing, cyanosis, edema. Neurologic: Nonfocal. Total time spent discharging the patient was 37 minutes. /AYE Voice ID: [id number] Report ID: [id number]
== END 2018-09-19 11:52 | disposition home or self-care (01) | DRG 191 ==
LOC: ER 11:50 → ERHOLD 14:21 → 2ND 17:17
PROVIDERS: ADMIT Family Medicine; ATTEND Family Medicine
DX: J44.1 Chronic obstructive pulmonary disease with (acute) exacerbation (principal); J96.10 Chronic respiratory failure, unspecified whether with hypoxia or hypercapnia; R74.8 Abnormal levels of other serum enzymes; M54.9 Dorsalgia, unspecified; K21.9 Gastro-esophageal reflux disease without esophagitis; E66.3 Overweight; Z68.27 Body mass index [BMI] 27.0-27.9, adult; F17.210 Nicotine dependence, cigarettes, uncomplicated; Z23 Encounter for immunization; Z79.52 Long term (current) use of systemic steroids; Z99.81 Dependence on supplemental oxygen; Z88.2 Allergy status to sulfonamides
CPT/HCPCS: 36415; 70450; 71045; 71046; 80048; 80053; 80076; 81003; 83605; 83735; 83880; 84100; 84145; 84484; 85025; 85610; 87040; 87070; 87205; 87804; 90670; 93005; 94640; 94760; 96365; 96375; 99285; G0008; G0009; J1650; J2405; J2550; J2920; J2930; J3010; J7030; J7512; Q2035

== ENCOUNTER 2018-10-15 10:08 | Inpatient (IN) | payer OTHER ==
--- OUTSIDE RECORDS SUMMARY | 2018-10-15 10:10 | XMS REPORT ---
[...] Status Dosage System Date Date Anoro Ellipta [facility] [id number] 62.5mcg/25 mcg Active not Orally defined Levothyroxine ND 99680386283 75 MCG Orally Active 1 tablet Sodium Once a day on an empty stomach in the morning Albuterol [facility] [address]-17 108 (90 Base) Active 2 puffs as Sulfate HFA MCG/ACT needed Inhalation every 6 hrs Spiriva [facility] [id number] 18 MCG Active 1 capsule HandiHaler Inhalation Once a day PredniSONE [facility] 48679005837 10 MG Orally Active 1 tablet Once a day Suboxone [facility] [address]-78 8-2 MG Active 1 film Sublingual bid under the tongue and allow to dissolve Metoprolol [facility] 24806408114 25 MG Orally April 28, Active 1 tablet Succinate ER Once a day 2018 Results No Known Results Summary Purpose eClinicalWorks Submission
--- NOTE | 2018-10-15 11:05 | RAD REPORT ---
EXAM DESCRIPTION: RAD - Chest Single View - 10/15/2018 10:58 am CLINICAL HISTORY: Cough and congestion, arrhythmia, dyspnea COMPARISON: September 16 TECHNIQUE: AP portable chest image was obtained 1042 hours . FINDINGS: Chronic interstitial lung disease is present similar to comparison. No superimposed failur e, infiltrate or mass. Heart and vasculature are normal. No measurable pleural effusion and no pneumo thorax. No acute bony abnormality seen. No acute aortic findings suspected. IMPRESSION: Chronic interstitial lung disease similar to comparison. No acute finding.
[2018-10-15] MEDS ORDERED: NA CHLORIDE 0.9% 1,000 ML ONE (11:46)
[2018-10-15] MEDS ORDERED: IPRATROPIUM BROM 0.5MG/2.5ML ONE (11:46)
[2018-10-15] MEDS ORDERED: LEVALBUTEROL 1.25 MG/3 ML NEB ONE ×2 (11:46→13:50)
[2018-10-15] MEDS ORDERED: METHYLPREDNISOLONE 125 MG INJ ONE (11:46)
[2018-10-15] MEDS ORDERED: Magnesium Sulfate 2gm IVPB 2 G/50 ML BAG IV ONE (11:47)
[2018-10-15 11:52] LABS: Absolute Lymphocytes (CBC) 1.8 K/uL (0.7-4.9); Absolute Monocytes 0.8 K/uL (0.1-1.3); Absolute Neutrophil 4.5 K/uL (1.8-8.0); Basophils % 0.5 % (0-1.3); Eosinophils % 0.5 % (0-4.4); Hematocrit 45.8 % (36.0-45.0); Lymphocytes % 25.1 % (15.3-44.8); MPV 8.9 fL (7.6-11.3); Monocytes % 10.7 % (3.3-12.3); RBC Red Blood Cell Count 4.75 M/uL (3.86-4.86)
[2018-10-15 12:11] LABS: BUN Blood Urea Nitrogen 14 mg/dL (7-18); Bicarbonate 31 mmol/L (21-32); Creatine Phosphokinase 50 U/L (26-192); Glucose Level 97 mg/dL (74-106); Potassium 3.7 mmol/L (3.5-5.1); Sodium Level 139 mmol/L (136-145); Troponin (Emerg Dept Use Only) < 0.02 ng/mL (0.0-0.045)
[2018-10-15 12:51] LABS: Blood Morphology Comment NOT SEEN (NOT SEEN); Platelet Estimate ADEQ
--- NOTE | 2018-10-15 13:42 | ER ---
Nurse's Notes [facility] Name: Samantha Smart Age: 53 yrs Sex: Female : 1965 Arrival Date: 10/15/2018 Time: 10:11 Bed 18 Private MD: None, None Diagnosis: Chronic obstructive pulmonary disease with (acute) exacerbation Presentation: 10/15 10:17 Presenting complaint: Patient states: "I've been having chest pain all night long, aj1 coughing stuff up. I get up to go to the bathroom and my heart if beating really fast." Reports productive cough, palpitations. Denies fever. Transition of care: patient was not received from another setting of care. Onset of symptoms was October 13, 2018. Risk Assessment: Do you want to hurt yourself or someone else? Patient reports no desire to harm self or others. Initial Sepsis Screen: Does the patient meet any 2 criteria? RR > 20 per min. HR > 90 bpm. Does the patient have a suspected source of infection? Yes: Productive cough/pneumonia. Care prior to arrival: None. 10:17 Method Of Arrival: Wheelchair aj1 10:17 Acuity: [place] 3 aj1 Triage Assessment: 10:19 General: Appears in no apparent distress. uncomfortable, Behavior is calm, cooperative, aj1 appropriate for age. Pain: Complains of pain in back and chest Pain currently is 8 out of 10 on a pain scale. Neuro: Level of Consciousness is awake, alert, obeys commands. Cardiovascular: Reports chest pain, palpitations, shortness of breath, Patient's skin is warm and dry. Respiratory: Airway is patent Respiratory effort is even, labored, Respiratory pattern is regular, symmetrical, tachypnea. SOLE STITCHER HAND: 10:19 LMP N/A - Hysterectomy aj1 Historical: - Allergies: 10:19 Iodine; aj1 10:19 Sulfa (Sulfonamide Antibiotics); aj1 - PMHx: 10:19 COPD; Emphysema; aj1 - Immunization history:: Adult Immunizations up to date. - Social history:: Smoking status: Patient uses tobacco products, unknown amount. - Ebola Screening: : Patient negative for fever greater than or equal to 101.5 degrees Fahrenheit, and additional compatible Ebola Virus Disease symptoms Patient denies exposure to infectious person Patient denies travel to an Ebola-affected area in the 21 days before illness onset No symptoms or risks identified at this time. Screenin:00 Abuse screen: Denies threats or abuse. Denies injuries from another. Nutritional bp screening: No deficits noted. Tuberculosis screening: No symptoms or risk factors identified. Fall Risk None identified. Assessment: 10:20 General: Appears in no apparent distress. comfortable, Behavior is cooperative, bp appropriate for age, anxious. Pain: Complains of pain in chest and back Pain does not radiate. Pain began 2-3 days ago. Neuro: Level of Consciousness is awake, alert, obeys commands, Oriented to person, place, time, situation, Appropriate for age. Cardiovascular: Rhythm is sinus tachycardia. Respiratory: Airway is patent Respiratory effort is labored, Respiratory pattern is tachypnea. GI: No signs and/or symptoms were reported involving the gastrointestinal system. : No signs and/or symptoms were reported regarding the genitourinary system. EENT: No deficits noted. Derm: No deficits noted. Musculoskeletal: Circulation, motion, and sensation intact. Range of motion: intact in all extremities. 12:30 Reassessment: PT DESAT ON 2LNC, CHANGED TO 4LNC. ALL CURRENT ORDERS COMPLETED, RESULTS bp PENDING. 14:30 Reassessment: ADMIT IN PROCESS, ALL CURRENT ORDERS COMPLETED. bp Vital Signs: 10:19 BP 142 / 102; Pulse 122; Resp 28; Temp 98.2; Pulse Ox 93% on 2 lpm NC; Weight 68.95 kg aj1 (R); Height 5 ft. 2 in. (157.48 cm) (R); Pain 8/10; 11:39 BP 144 / 99; Pulse 104; Resp 24; Pulse Ox 94% on 2 lpm NC; mh5 12:30 BP 128 / 71; Pulse 91; Resp 20; Pulse Ox 99% ; bp 13:30 BP 126 / 74; Pulse 96; Resp 24; Pulse Ox 84% ; bp 14:30 BP 135 / 75; Pulse 98; Resp 20; Pulse Ox 97% ; bp 16:18 BP 114 / 68; Pulse 95; Resp 26; Pulse Ox 91% on 2 lpm NC; mh5 10:19 Body Mass Index 27.80 (68.95 kg, 157.48 cm) aj1 ED Course: 10:11 Patient arrived in ED. mr 10:12 None, None is Private Physician. mr 10:19 Triage completed. aj1 10:19 Arm band placed on Patient placed in an exam room. aj1 10:23 Dayana Soto FNP-C is [facility]. kb 10:23 Yg White MD is Attending Physician. kb 10:32 Aleksander Vail, HUMAIRA is Primary Nurse. bp 10:37 EKG done, by technical operations manager. reviewed by Dayana MAXWELL. at1 10:52 X-ray completed. Portable x-ray completed in exam room. Patient tolerated procedure ls3 well. 10:59 Chest Single View XRAY In Process Unspecified. EDMS 11:00 Patient has correct armband on for positive identification. Bed in low position. Call bp light in reach. Side rails up X2. Adult w/ patient. air route controller on. Pulse ox on. NIBP on. 11:30 Inserted saline lock: 18 gauge in right upper arm, using aseptic technique. Blood bp collected. 13:41 Ruben Soriano MD is Hospitalizing Provider. kb 14:02 Urine collected: clean catch specimen, clear. [facility] 16:21 No provider procedures requiring assistance completed. Patient admitted, IV remains in bp place. Oxygen administration via nasal cannula \\T\\ 4L/min. 16:30 Repeat lab(s) drawn. by sc, sent to lab. [facility] 16:31 Troponin I Sent. [facility] 16:31 Troponin I Sent. 5 Administered Medications: 11:10 Drug: Xopenex (3) 1.25 mg Route: Inhalation; bp 11:10 Drug: AtroVENT Aerosol 0.5 mg Route: Inhalation; bp 11:30 Drug: NS 0.9% 1000 ml Route: IV; Rate: 1000 ml; Site: right upper arm; bp 12:30 Follow up: IV Status: Completed infusion; IV Intake: 1000ml bp 11:30 Drug: Magnesium Sulfate 2 grams Route: IVPB; Infused Over: 2 hrs; Site: right upper arm;bp 12:30 Follow up: IV Status: Completed infusion; IV Intake: 50ml bp 11:30 Drug: SOLU-Medrol 125 mg Route: IVP; Site: right upper arm; bp 12:12 Follow up: Response: No adverse reaction bp 13:45 Drug: Xopenex (3) 1.25 mg Route: Inhalation; bp Intake: 12:30 IV: 50ml; Total: 50ml. bp 12:30 IV: 1000ml; Total: 1050ml. bp Outcome: 13:41 Decision to Hospitalize by Provider. kb 16:20 Admitted to Tele accompanied by tech, via stretcher, room 409, with oxygen, with chart, bp Report called to MADYSON GERARDO 16:20 Condition: stable 16:20 Instructed on the need for admit. 17:08 Patient left the ED. bp Signatures: Dispatcher [employer] EDMS Dayana Soto, PLUMBING INSTRUCTOR-C PLUMBING INSTRUCTOR-Ckb Christa Webb, RN RN aj1 Meenakshi Lima mr BoboBrianda, rehanger EKG [facility]1 Anna Rosas 5 Aleksander Vail, RN RN bp Angela Morgan 3
--- NOTE | 2018-10-15 13:42 | EDPHYS ---
Physician Documentation [facility] Unit Name: Samantha Smart Age: 53 yrs Sex: Female : 1965 Arrival Date: 10/15/2018 Time: 10:11 Bed 18 Private MD: None, None ED Physician Yg White HPI: 10/15 13:38 This 53 yrs old Female presents to ER via Wheelchair with complaints of Chest kb Pain, Shortness Of Breath. 13:38 The patient has shortness of breath at rest, and the patient has a history of COPD. kb Onset: The symptoms/episode began/occurred last night. Duration: The symptoms are continuous, and are unchanged since they started. The patient's shortness of breath is aggravated by exertion, light activity, is alleviated by nothing. Associated signs and symptoms: Pertinent positives: productive cough, Pertinent negatives: chest pain, non-productive cough, diaphoresis, dizziness, fever, hemoptysis, loss of consciousness, nausea, numbness in extremities, visual changes, vomiting. Severity of symptoms: At their worst the symptoms were moderate in the emergency department the symptoms are unchanged. The patient has experienced similar episodes in the past, multiple times. The patient has not recently seen a physician. Pt reports shortness of breath, chest pain with cough, fast heart rate with activity, cough and increased sputum production.. 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 - Social history:: Smoking status: Patient uses tobacco products, unknown amount. - Ebola Screening: : Patient negative for fever greater than or equal to 101.5 degrees Fahrenheit, and additional compatible Ebola Virus Disease symptoms Patient denies exposure to infectious person Patient denies travel to an Ebola-affected area in the 21 days before illness onset No symptoms or risks identified at this time. ROS: 13:37 Constitutional: Negative for fever, chills, and weight loss, ENT: Negative for injury, kb pain, and discharge, Neck: Negative for injury, pain, and swelling, Abdomen/GI: Negative for abdominal pain, nausea, vomiting, diarrhea, and constipation, Back: Negative for injury and pain, MS/Extremity: Negative for injury and deformity, Skin: Negative for injury, rash, and discoloration, Neuro: Negative for headache, weakness, numbness, tingling, and seizure. 13:37 Respiratory: Positive for cough, with green sputum, dyspnea on exertion, shortness of breath, Negative for hemoptysis, orthopnea, pleurisy. 13:38 Cardiovascular: Positive for chest pain, palpitations, Negative for edema, orthopnea, kb paroxysmal nocturnal dyspnea. Exam: 13:37 Constitutional: This is a well developed, well nourished patient who is awake, alert, kb and in no acute distress. Head/Face: Normocephalic, atraumatic. ENT: Nares patent. No nasal discharge, no septal abnormalities noted. Tympanic membranes are normal and external auditory canals are clear. Oropharynx with no redness, swelling, or masses, exudates, or evidence of obstruction, uvula midline. Mucous membranes moist. Neck: Trachea midline, no thyromegaly or masses palpated, and no cervical lymphadenopathy. Supple, full range of motion without nuchal rigidity, or vertebral point tenderness. No Meningismus. Chest/axilla: Normal chest wall appearance and motion. Nontender with no deformity. No lesions are appreciated. Cardiovascular: Regular rate and rhythm with a normal S1 and S2. No gallops, murmurs, or rubs. Normal PMI, no JVD. No pulse deficits. Abdomen/GI: Soft, non-tender, with normal bowel sounds. No distension or tympany. No guarding or rebound. No evidence of tenderness throughout. Skin: Warm, dry with normal turgor. Normal color with no rashes, no lesions, and no evidence of cellulitis. MS/ Extremity: Pulses equal, no cyanosis. Neurovascular intact. Full, normal range of motion. Neuro: Awake and alert, GCS 15, oriented to person, place, time, and situation. Cranial nerves II-XII grossly intact. Motor strength 5/5 in all extremities. Sensory grossly intact. Cerebellar exam normal. Normal gait. 13:37 Respiratory: the patient does not display signs of respiratory distress, Respirations: normal, Breath sounds: rhonchi, that are moderate, are heard diffusely. Vital Signs: 10:19 BP 142 / 102; Pulse 122; Resp 28; Temp 98.2; Pulse Ox 93% on 2 lpm NC; Weight 68.95 kg aj1 (R); Height 5 ft. 2 in. (157.48 cm) (R); Pain 8/10; 11:39 BP 144 / 99; Pulse 104; Resp 24; Pulse Ox 94% on 2 lpm NC; mh5 12:30 BP 128 / 71; Pulse 91; Resp 20; Pulse Ox 99% ; bp 13:30 BP 126 / 74; Pulse 96; Resp 24; Pulse Ox 84% ; bp 14:30 BP 135 / 75; Pulse 98; Resp 20; Pulse Ox 97% ; bp 16:18 BP 114 / 68; Pulse 95; Resp 26; Pulse Ox 91% on 2 lpm NC; mh5 10:19 Body Mass Index 27.80 (68.95 kg, 157.48 cm) aj1 MDM: 10:23 Patient medically screened. kb 13:34 Data reviewed: vital signs, nurses notes. Data interpreted: Pulse oximetry: on 2L(s) kb per nasal canula, Home O2 is 93 %. Interpretation: acceptable. Counseling: I had a detailed discussion with the patient and/or guardian regarding: the historical points, exam findings, and any diagnostic results supporting the discharge/admit diagnosis, lab results, radiology results, the need for further work-up and treatment in the hospital. 13:35 ED course: Pt re-evaluated after treatments. Diffuse Rhonchi noted. O2 saturation is kb 82% on home O2 of 2L. Will admit pt.. 13:41 Physician consultation: Ruben Soriano MD was contacted at 13:41, regarding kb admission, to the telemetry unit. and will see patient in ED, shortly. 10/15 10:37 Order name: Basic Metabolic Panel; Complete Time: 12:16 kb 10/15 10:37 Order name: Blood Culture Adult (2) kb 10/15 10:37 Order name: CBC with Diff; Complete Time: 12:53 kb 10/15 10:37 Order name: Ckmb; Complete Time: 12:16 kb 10/15 10:37 Order name: CPK; Complete Time: 12:16 kb 10/15 10:37 Order name: Lactate; Complete Time: 12:06 kb 10/15 10:37 Order name: Procalcitonin; Complete Time: 13:05 kb 10/15 10:37 Order name: Troponin (emerg Dept Use Only); Complete Time: 12:16 kb 10/15 12:52 Order name: Manual Differential; Complete Time: 12:53 EDMS 10/15 14:41 Order name: Urine Dipstick--Ancillary (enter results); Complete Time: 14:51 bd 10/15 15:17 Order name: CKMB Creatine Kinase MB EDFL 10/15 15:17 Order name: CKMB Creatine Kinase MB EDFL 10/15 15:17 Order name: Creatine Phosphokinase EDFL 10/15 15:17 Order name: Creatine Phosphokinase EDFL 10/15 10:37 Order name: Chest Single View XRAY; Complete Time: 11:11 kb 10/15 10:37 Order name: Cardiac monitoring; Complete Time: 10:52 kb 10/15 10:37 Order name: EKG - Nurse/Tech; Complete Time: 10:52 kb 10/15 10:37 Order name: IV Saline Lock - Large Bore; Complete Time: 11:51 kb 10/15 10:37 Order name: Labs collected and sent; Complete Time: 11:51 kb 10/15 10:37 Order name: O2 Per Protocol; Complete Time: 11:09 kb 10/15 10:37 Order name: O2 Sat Monitoring; Complete Time: 11:09 kb 10/15 10:37 Order name: Urine Dipstick-Ancillary (obtain specimen); Complete Time: 13:59 kb 10/15 15:17 Order name: Troponin I [facility] 10/15 15:17 Order name: Troponin I EDFL Administered Medications: 11:10 Drug: Xopenex (3) 1.25 mg Route: Inhalation; bp 11:10 Drug: AtroVENT Aerosol 0.5 mg Route: Inhalation; bp 11:30 Drug: NS 0.9% 1000 ml Route: IV; Rate: 1000 ml; Site: right upper arm; bp 12:30 Follow up: IV Status: Completed infusion; IV Intake: 1000ml bp 11:30 Drug: Magnesium Sulfate 2 grams Route: IVPB; Infused Over: 2 hrs; Site: right upper arm;bp 12:30 Follow up: IV Status: Completed infusion; IV Intake: 50ml bp 11:30 Drug: SOLU-Medrol 125 mg Route: IVP; Site: right upper arm; bp 12:12 Follow up: Response: No adverse reaction bp 13:45 Drug: Xopenex (3) 1.25 mg Route: Inhalation; bp Disposition: 10/16 09:33 Co-signature as Attending Physician, Yg White MD I agree with the assessment and kdr plan of care. Disposition: 10/15/18 13:41 Hospitalization ordered by Ruben Soriano for Observation. Preliminary diagnosis is Chronic obstructive pulmonary disease with (acute) exacerbation. - Bed requested for Telemetry/MedSurg (observation). - Status is Observation. bp - Condition is Stable. - Problem is new. - Symptoms are unchanged. UTI on Admission? No Signatures: Dispatcher [employer] EDMS Dayana Soto, STRATEGIC PLANNER-C STRATEGIC PLANNER-Ckb Mirna Us Angela, RN RN aj1 Yg White MD MD kdr Aleksander Vail RN RN bp Corrections: (The following items were deleted from the chart) 10/15 13:38 13:37 Constitutional: Negative for fever, chills, and weight loss, ENT: Negative for kb injury, pain, and discharge, Neck: Negative for injury, pain, and swelling, Cardiovascular: Negative for chest pain, palpitations, and edema, Abdomen/GI: Negative for abdominal pain, nausea, vomiting, diarrhea, and constipation, Back: Negative for injury and pain, MS/Extremity: Negative for injury and deformity, Skin: Negative for injury, rash, and discoloration, Neuro: Negative for headache, weakness, numbness, tingling, and seizure, kb 15:45 13:41 Hospitalization Ordered by Ruben Soriano MD for Observation. Preliminary bd diagnosis is Chronic obstructive pulmonary disease with (acute) exacerbation. Bed requested for Telemetry/MedSurg (observation). Status is Observation. Condition is Stable. Problem is new. Symptoms are unchanged. UTI on Admission? No. kb 17:08 15:45 10/15/2018 13:41 Hospitalization Ordered by Ruben Soriano MD for Observation. bp Preliminary diagnosis is Chronic obstructive pulmonary disease with (acute) exacerbation. Bed requested for Telemetry/MedSurg (observation). Status is Observation. Condition is Stable. Problem is new. Symptoms are unchanged. UTI on Admission? No. bd
[2018-10-15 14:46] LABS: Urine Blood TRACE (NEG); Urine Glucose NEGATIVE (NEG); Urine Protein NEGATIVE (NEG)
[2018-10-15] MEDS ORDERED: ONDANSETRON 4 MG/2 ML VIAL IV PRN (15:12)
[2018-10-15] MEDS ORDERED: ACETAMINOPHEN 650MG/RECT SUPP PR PRN (15:12)
[2018-10-15] MEDS ORDERED: PROMETHAZINE HCL 12.5 MG PO SCH (17:21)
[2018-10-15] MEDS: ENOXAPARIN 40 MG/0.4 ML SQ SCH (18:08)
[2018-10-15] MEDS: METHYLPREDNISOLONE 125 MG INJ IV SCH (18:08)
[2018-10-15] MEDS: Levofloxacin 750mg IV 750 MG/150 ML BAG IV SCH (18:08)
[2018-10-15] MEDS: PROMETHAZINE 25 MG TABLET PO SCH (18:09)
[2018-10-15 18:22] LABS: CKMB Creatine Kinase MB 1.9 ng/mL (0.3-3.6); Creatine Phosphokinase 42 U/L (26-192); Troponin I < 0.02 ng/mL (0.0-0.045)
[2018-10-15 18:23] VITALS: BMI 27.8
[2018-10-15] MEDS: IPRATROPIUM BROM 0.5MG/2.5ML NEB SCH (19:39)
[2018-10-15] MEDS: ALBUTEROL 2.5 MG/3 ML NEB SOL NEB SCH (19:39)
[2018-10-15] MEDS: HOME MED 1 EA UNK (Fluticasone/Salmeterol [Advair 250/50 Diskus*] 1 PUFF) IH SCH (21:00)
[2018-10-15] MEDS: DULERA 100/5 (MOMETASONE/FORMOTEROL) INHALER IH SCH (21:39)
[2018-10-15 23:38] LABS: CKMB Creatine Kinase MB 1.5 ng/mL (0.3-3.6); Creatine Phosphokinase 38 U/L (26-192); Troponin I < 0.02 ng/mL (0.0-0.045)
[2018-10-16] MEDS: PROMETHAZINE 25 MG TABLET PO SCH ×3 (00:20→17:17)
[2018-10-16] MEDS: METHYLPREDNISOLONE 125 MG INJ IV SCH ×4 (00:20→18:19)
[2018-10-16] MEDS: IPRATROPIUM BROM 0.5MG/2.5ML NEB SCH ×4 (02:20→19:45)
[2018-10-16] MEDS: ALBUTEROL 2.5 MG/3 ML NEB SOL NEB SCH ×4 (02:20→19:45)
[2018-10-16] MEDS: HOME MED 1 EA UNK (Esomeprazole Mag Trihydrate [Nexium] 1 CAP) PO SCH (05:51)
--- NOTE | 2018-10-16 05:55 | HP ---
Date of Admission: 10/15/2018 Reason For Admission: Progressive shortness of breath. History Of Present Illness: This is a 53-year-old female with history of multiple medical problems i ncluding COPD, emphysema, chronic flank pain, admitted with progressive shortness of breath associate d with progressive cough with sputum. There were no fever or chills. She did not have any chest sarah n, nausea, vomiting, abdominal pain. In ER, she was evaluated. Chest x-ray was normal, interstitial marking only. There was no infiltration. The patient was admitted for COPD exacerbation. Her O2 s aturation was in the 80s, around 82 . So the patient is at home on 2 L, but that was not helping muc h. Currently, she and she is feeling much better. Review of systems otherwise as below. Past Medical History: Significant for COPD, chronic steroid use, chronic pain, tobacco abuse. Past Surgical History: Significant for tonsillectomy, , hysterectomy. Allergies: . Social History: The patient is single. She has 3 kids. She is on disability. She does smoke 1 pac k a day for the last 40 years, but she quit last year in October. She does not drink or use any drug s. Family History: family history of lung cancer. Review of Systems: The patient denies any fever, chills, night sweats, dizziness, lightheaded, headache, blurred vision yesterday but today she has headache mostly frontal. She has productive cough with sputum yellowish. She is short of breath even at rest. She has no chest pain, palpitation, PND, orthopnea . She has dyspnea on exertion of course. No lower extremity edema. No nausea, vomiting, abdominal pain, change in bowel movement, diarrhea, constipation, dysuria, frequency, urgency, hematuria. Ther e is no history of depression, anxiety, seizure, or stroke. Home Medications: Spiriva, Advair, 100 mg daily, Suboxone, Nexium 1 tablet orally once a day. Physical Examination: Vital Signs: Blood pressure is 144/99, respiratory rate 24, pulse 104, she is saturating 94% on 2 L nasal cannula. General: She is alert and oriented x3. Does not look in any distress. HEENT: Atraumatic, normocephalic. PERRLA. Oral mucosa is moist. Neck: Supple. No JVD. No carotid bruits. Chest: Clear to auscultation. expiratory wheezing. There are no rales or crackles. Abdomen: Soft, nontender. No masses. No hepatosplenomegaly. Positive bowel sounds. Extremities: No clubbing, cyanosis, or edema. No calf tenderness. Neurologic: Grossly intact. Laboratory Data: Labs today in the emergency room, CBC was normal except for hemoglobin 15.4. Chemi stry within normal. GFR 57. Cardiac enzymes still pending, the first set was negative. UA was norm al. Chest x-ray was unremarkable. Assessment And Plan: A 53-year-old female with history of multiple medical problems including tobacc o abuse and chronic emphysema, on home oxygen, admitted with chronic obstructive pulmonary disease ex acerbation. 1.Chronic obstructive pulmonary disease exacerbation. We will admit the patient, start on IV antibi otic with Levaquin. She will be on Solu-Medrol 60 every 6 hours as well as nebulizer treatment. I w ill continue her Spiriva and Advair from her home medication. 2.Chronic back pain. We will resume the patient's home medication for pain. 3.Headache. The patient will be on p.r.n. medication. 4.History of tobacco abuse. The patient currently quit almost 12 months ago. 5.Hypertension. We will monitor and will start on hydralazine p.r.n. if needed. 6.Deep vein thrombosis prophylaxis, on Lovenox. PRITI/AYE Voice ID: [id number]
[2018-10-16] MEDS ORDERED: HOME MED 1 EA UNK (Esomeprazole Mag Trihydrate [Nexium] 1 CAP) PO SCH (06:30)
[2018-10-16 06:31] LABS: Absolute Lymphocytes (CBC) 1.2 K/uL (0.7-4.9); Absolute Monocytes 0.4 K/uL (0.1-1.3); Absolute Neutrophil 5.9 K/uL (1.8-8.0); Basophils % 0.3 % (0-1.3); Hematocrit 40.7 % (36.0-45.0); Lymphocytes % 16.1 % (15.3-44.8); Monocytes % 4.8 % (3.3-12.3); RBC Red Blood Cell Count 4.17 M/uL (3.86-4.86)
[2018-10-16 06:52] LABS: Potassium 4.9 mmol/L (3.5-5.1)
[2018-10-16 06:54] LABS: CKMB Creatine Kinase MB 1.2 ng/mL (0.3-3.6); Creatine Phosphokinase 37 U/L (26-192); Troponin I < 0.02 ng/mL (0.0-0.045)
[2018-10-16 08:53] LABS: Urine Appearance CLEAR; Urine Bilirubin NEGATIVE (NEG); Urine Blood NEGATIVE (NEG); Urine Color YELLOW; Urine Glucose NEGATIVE (NEG); Urine Protein NEGATIVE (NEG); Urine Specific Gravity 1.015 (1.005-1.030)
--- NOTE | 2018-10-16 08:59 | EKG ---
Test Date: 2018-10-15 Test Time: 10:23:54 Content Coordinator: ARNOLD MEASUREMENT RESULTS: Intervals: Rate: 113 IA: 148 QRSD: 62 QT: 322 QTc: 441 [place]: P: 74 IA: 148 QRS: 86 T: 65 INTERPRETIVE STATEMENTS: Sinus tachycardia Anteroseptal infarct, age undetermined Abnormal ECG Compared to ECG 09/15/2018 12:27:54 Atrial abnormality no longer present Myocardial infarct finding still present Electronically Signed On 10-16-18 08:57:57 STUDIO OWNER by Ever Collins
[2018-10-16] MEDS: TIOTROPIUM 5 SPRAYS/INHALER IH SCH (09:00)
[2018-10-16] MEDS: HOME MED 1 EA UNK (Fluticasone/Salmeterol [Advair 250/50 Diskus*] 1 PUFF) IH SCH (09:00)
[2018-10-16 09:03] LABS: Urine Microscopic Reflex NO UMIC
[2018-10-16] MEDS: DULERA 100/5 (MOMETASONE/FORMOTEROL) INHALER IH SCH ×2 (10:27→20:20)
[2018-10-16] MEDS: ENOXAPARIN 40 MG/0.4 ML SQ SCH (10:28)
[2018-10-16] MEDS: Levofloxacin 750mg IV 750 MG/150 ML BAG IV SCH (17:14)
[2018-10-16] MEDS: ACETAMINOPHEN 325 MG TABLET PO PRN (17:39)
--- NOTE | 2018-10-16 20:49 | PN ---
Date of Progress Note: 10/16/2018 Subjective: Patient was seen and examined. Chart reviewed and case discussed with RN. The patient still having some shortness of breath. Medications: List reviewed. Physical Examination: Vital Signs: Temperature 98.3, heart rate 91, blood pressure 110/61, respirations 16, O2 93% on 3 L via nasal cannula. General: Awake, alert, oriented, in some mild distress due to shortness of breath. The patient does appear somewhat ill. CV: S1 and S2. Peripheral pulses are present. Respiratory: Diminished breath sounds. Diffuse wheezing heard throughout. No stridor. No use of accessory muscles. Gastrointestinal: Abdomen is soft, nontender, nondistended. Positive bowel sounds. Extremities: No clubbing, cyanosis. Trace pedal edema. Neurologic: Nonfocal. Laboratory Data: Sodium 139, potassium 4.9, chloride 104, CO2 29, BUN 20, creatinine 1.06, glucose 135, calcium 8.5. Troponin less than 0.02. Cholesterol 212, LDL 135. WBC 7.4, hemoglobin and hematocrit 13.5 and 40.7, platelets 149. Blood cultures, no growth to date. Assessment: A 53-year-old female with: 1. Acute chronic obstructive pulmonary disease exacerbation. We will continue Levaquin, Solu-Medrol, and nebulizer treatments. Continue home medications including Spiriva and Advair. Consult Dr. Garcia. 2. Chronic respiratory failure. The patient has an O2 due to chronic obstructive pulmonary disease. 3. Chronic back pain. Resume home medications. 4. Headache, improving. Continue medications for pain. 5. Nicotine dependence with cigarette smoking in remission, less than 1 year ago. 6. Essential hypertension, stable. Hydralazine added p.r.n. 7. Gastrointestinal and deep vein thrombosis prophylaxis addressed. Plan: Pulmonology consultation. Follow up on cultures. Wean down to home oxygen levels of 2L. SA/MODL Voice ID: [id number] Report ID: [id number] MTDD
[2018-10-16] MEDS ORDERED: BUPRENORPHINE HCL PO SCH (21:00)
[2018-10-16] MEDS ORDERED: NALOXONE HCL PO SCH (21:00)
[2018-10-17] MEDS: METHYLPREDNISOLONE 125 MG INJ IV SCH ×2 (00:41→05:05)
[2018-10-17] MEDS: PROMETHAZINE 25 MG TABLET PO SCH ×3 (00:42→16:41)
[2018-10-17] MEDS: ALBUTEROL 2.5 MG/3 ML NEB SOL NEB SCH ×4 (01:25→20:05)
[2018-10-17] MEDS: IPRATROPIUM BROM 0.5MG/2.5ML NEB SCH ×4 (01:25→20:05)
[2018-10-17] MEDS: HOME MED 1 EA UNK (Esomeprazole Mag Trihydrate [Nexium] 1 CAP) PO SCH (06:30)
[2018-10-17] MEDS: PANTOPRAZOLE 40MG TABLET PO SCH (07:45)
[2018-10-17] MEDS ORDERED: HOME MED 1 EA UNK (Esomeprazole Magnesium [Nexium] 20 MG) PO SCH (09:00)
[2018-10-17] MEDS: TIOTROPIUM 5 SPRAYS/INHALER IH SCH (09:00)
[2018-10-17] MEDS: ENOXAPARIN 40 MG/0.4 ML SQ SCH (09:48)
[2018-10-17] MEDS: DULERA 100/5 (MOMETASONE/FORMOTEROL) INHALER IH SCH ×2 (09:49→21:16)
--- NOTE | 2018-10-17 10:37 | P.CNS ---
Date of Consult: 10/17/18 Chief Complaint: Shortness of breath History of Present Illness: Patient is 53 years of age well known to me with a history of severe COPD and recurrent exacerbations admitted with a 2 day history of worsening shortness of breath chest congestion denies any fever chills also complaining of some chest discomfort fairly she reduced her prednisone from 10 mg to 5 mg a day and got worse patient was scared that that she was having a heart attack still complaining of some congestion Allergies iodine Allergy (Verified 10/15/18 17:54) Unknown Sulfa (Sulfonamide Antibiotics) Allergy (Verified 10/15/18 17:54) Unknown band-aid Allergy (Uncoded 10/15/18 17:54) Rash Home Medications: Fluticasone/Salmeterol [Advair 250/50 Diskus*] 1 puff IH BID #1 disk 01/24/17 Buprenorphine HCl/Naloxone HCl [Suboxone 8 mg-2 mg Sl Film] 1 tab PO BID Esomeprazole Mag Trihydrate [Nexium] 1 cap PO 0630 06/18/17 Promethazine HCl 12.5 mg PO Q8HR #10 tablet 09/19/18 Tiotropium [Spiriva Handihaler] 18 mcg IH DAILY #30 cap.w.dev 09/19/18 levoFLOXacin [Levaquin] 750 mg PO DAILY #7 tab 09/19/18 Esomeprazole Magnesium [Nexium] 20 mg PO 10/15/18 Fluticasone/Salmeterol [Advair 250-50 Diskus] 1 each IH 10/15/18 predniSONE [Deltasone*] 10 mg PO ONCE 10/15/18 - Past Medical/Surgical History Diabetic: No -: COPD -: Chronic steroid use -: Chronic pain -: Tobacco abuse -: Hysterectomy -: Appendectomy -: Tonsillectomy Psychosocial/ Personal History: The patient is single. She has 3 children. - Family History Father Medical History: Heart disease, Lung disease, Kidney disease Notes: of asbestosis Mother Medical History: Heart disease Notes: of cardiac arrest - Social History Smoking Status: Current every day smoker Alcohol use: No CD- Drugs: No Caffeine use: Yes Place of Residence: Home Review of Systems General: Weakness Respiratory: Cough, Shortness of Breath Physical Examination Temp Pulse Resp BP Pulse Ox 97.3 F 94 H 20 123/68 91 10/17/18 08:00 10/17/18 08:00 10/17/18 08:00 10/17/18 08:00 10/17/18 08:00 General: Alert, In no apparent distress, Oriented x3 HEENT: Other Respiratory: Expiratory wheezes Cardiovascular: No edema, Regular rate/rhythm Gastrointestinal: Normal bowel sounds, Soft and benign - Problems (1) COPD exacerbation Onset Date: 09/16/18 Current Visit: No Status: Acute Plan: Patient is 53 years of age with a history of recurrent exacerbation admitted with worsening dyspnea chest x-rays all clear chemistries reviewed no evidence of obvious sepsis continue with steroids bronchodilators sputum cultures are pending change to p.o. levofloxacin patient does not smoke compliant with her medications possible discharge tomorrow hemodynamically stable she has oxygen at home
[2018-10-17] MEDS: levoFLOXacin 500 MG TAB PO SCH (12:30)
[2018-10-17] MEDS: METHYLPREDNISOLONE 40 MG INJ IV SCH (16:42)
[2018-10-17] MEDS: ACETAMINOPHEN 325 MG TABLET PO PRN (16:50)
--- NOTE | 2018-10-17 19:50 | PN ---
Date of Progress Note: 10/17/2018 Subjective: The patient is seen and examined. Chart reviewed and case discussed with RN and Dr. Delmi rodriguez. The patient is still significantly dyspneic upon minimal exertion. The patient gets very win ded going to the bathroom and back, currently on 3 L of oxygen. Review of Systems: Negative, except as above. Medications: List reviewed. Physical Examination: Vital Signs: Temperature 97.5, heart rate 96, blood pressure 118/69, respirations 18, and O2 is 94% on 3 L via nasal cannula. General: Awake, alert, and oriented x3, some mild respiratory distress, ill-appearing female. CV: S1 and S2. Regular rate and rhythm. Peripheral pulses present. Respiratory: Diminished breath sounds bilaterally. Diffuse wheezing heard throughout. Gastrointestinal: Abdomen is soft, nontender, and nondistended. Positive bowel sounds. Extremities: No clubbing, cyanosis, or edema. Neurologic: Nonfocal. Laboratory Data: Labs pending. Blood cultures, no growth to date. Sputum cultures, pending. Assessment And Plan: A 53-year-old female with, 1.Acute chronic obstructive pulmonary disease exacerbation. We will continue nebulizer treatments a nd wean off steroids. The patient is near end-stage chronic obstructive pulmonary disease with chron ic recurrent exacerbations. Appreciate Dr. Garcia's input. 2.Some chronic respiratory failure. The patient is on supplemental oxygen due to chronic obstructiv e pulmonary disease. 3.Chronic back pain, midline, without sciatica. We will continue on home medications. 4.Headache, resolved. 5.Nicotine dependence with cigarette smoking, in remission. 6.Essential hypertension, stable. 7.Gastrointestinal and deep venous thrombosis prophylaxis with Lovenox and PPI. Plan: Antibiotics switched to p.o., likely discharge in the next 24 hours. SA/MODL Voice ID: [id number] Report ID: [id number]
[2018-10-17] MEDS: ARFORMOTEROL TARTRATE 15 MCG/2 ML VIAL.NEB NEB SCH (20:05)
[2018-10-18] MEDS: PROMETHAZINE 25 MG TABLET PO SCH ×2 (00:20→09:44)
[2018-10-18] MEDS: METHYLPREDNISOLONE 40 MG INJ IV SCH ×2 (00:21→09:44)
[2018-10-18] MEDS: IPRATROPIUM BROM 0.5MG/2.5ML NEB SCH ×3 (02:10→13:57)
[2018-10-18] MEDS: ALBUTEROL 2.5 MG/3 ML NEB SOL NEB SCH ×3 (02:10→13:56)
[2018-10-18 05:28] LABS: Potassium 4.6 mmol/L (3.5-5.1)
[2018-10-18] MEDS: HOME MED 1 EA UNK (Esomeprazole Mag Trihydrate [Nexium] 1 CAP) PO SCH (06:10)
[2018-10-18] MEDS: PANTOPRAZOLE 40MG TABLET PO SCH (07:36)
[2018-10-18] MEDS: ARFORMOTEROL TARTRATE 15 MCG/2 ML VIAL.NEB NEB SCH (08:08)
[2018-10-18] MEDS: levoFLOXacin 500 MG TAB PO SCH (09:44)
[2018-10-18] MEDS: ENOXAPARIN 40 MG/0.4 ML SQ SCH (09:44)
[2018-10-18] MEDS: DULERA 100/5 (MOMETASONE/FORMOTEROL) INHALER IH SCH (09:45)
[2018-10-18] MEDS: ACETAMINOPHEN 325 MG TABLET PO PRN (09:59)
[2018-10-18 12:23] VITALS: TEMP 98.2
[2018-10-18 16:17] VITALS: O2SAT 93
[2018-10-18 17:13] VITALS: BP 144/82
--- NOTE | 2018-10-19 13:07 | DS ---
Date of Discharge: 10/18/2018 Cafeteria Assistant: Dr. Garcia with Pulmonology. Admitting Diagnoses: 1.Acute chronic obstructive pulmonary disease exacerbation. 2.Chronic back pain. 3.Headache. 4.Nicotine dependence with cigarette smoking. 5.Essential hypertension. Discharge Diagnoses: 1.Acute chronic obstructive pulmonary disease exacerbation, improved. 2.Chronic respiratory failure. 3.Chronic back pain, midline, without sciatica. 4.Headache, resolved. 5.Nicotine dependence with cigarette smoking, in remission. 6.Essential hypertension, stable. Hospital Course: The patient is a 53-year-old female with severe COPD with multiple readmissions, on oxygen at home, comes in with dyspnea upon exertion and found to be in exacerbation. The patient wa s started on IV steroids, nebulizer treatments. The patient was seen by her printing specialist, Dr. Delfina duran. Her treatment plan was adjusted. The patient made a slow recovery, however, improved, and had some gradual improvement in her dyspnea. The patient was back to baseline. Her cultures were negati ve. Sputum cultures showed yeast. The patient was then cleared for discharge from Dr. Garcia's [facility]. The patient to finish up a course of antibiotics and double her dose of steroids for the n ext 5 days and then resume home dose. The patient did request a refill for her promethazine. Followup: Follow up with primary care physician in 2 to 3 days. Follow up with printing specialist, Dr. Laura orozco, in 2 weeks. Return to ER for worsening condition. Diet: Heart healthy. Activity: No strenuous activity. Physical Examination: General: Awake, alert, oriented, in no acute distress. CV: S1, S2. Peripheral pulses present. Regular rate and rhythm. Respiratory: Diminished breath sounds, however, minimal wheezing. Gastrointestinal: Abdomen is soft, nontender, nondistended. Positive bowel sounds. Extremities: No clubbing, cyanosis, or edema. Neurologic: Nonfocal. Total time spent discharging the patient was 33 minutes. SA/MODL Voice ID: [id number] Report ID: [id number]
== END 2018-10-18 16:54 | disposition home or self-care (01) | DRG 191 ==
LOC: ER 10:08 → 4TH 16:44
PROVIDERS: ADMIT Internal Medicine; ATTEND Family Medicine
DX: J44.1 Chronic obstructive pulmonary disease with (acute) exacerbation (principal); J96.10 Chronic respiratory failure, unspecified whether with hypoxia or hypercapnia; G89.29 Other chronic pain; R51 Headache; I10 Essential (primary) hypertension; Z79.52 Long term (current) use of systemic steroids; Z87.891 Personal history of nicotine dependence
CPT/HCPCS: 36415; 71045; 80048; 80061; 81003; 82550; 82553; 83605; 84145; 84484; 85025; 87040; 87070; 87205; 93005; 94640; 94760; 96365; 96375; 99285; J1650; J2920; J2930; J3475; J7030; J7605; J7606

== ENCOUNTER 2019-10-18 14:35 | Inpatient (IN) | payer OTHER ==
--- OUTSIDE RECORDS SUMMARY | 2019-10-18 14:37 | XMS REPORT ---
:1965 Author Organization eClinicalWorks Care Team Providers Name Role Phone Janeth Landis Provider Role Unavailable Allergies, Adverse Reactions, Alerts Substance Reaction Event Type N.K.D.A. Info Not Available Non Drug Allergy Problems Problem Type Condition Code Onset Dates Condition Status Problem Hypothyroidism E03.9 Active Problem Hyponatremia E87.1 Active Assessment Chronic obstructive pulmon disease w J44.0 Active acute lower resp infct Assessment Gastroesophageal reflux disease with K21.0 Active esophagitis Problem Goiter E04.9 Active Problem Chronic obstructive pulmon disease w J44.0 Active acute lower resp infct Problem Gastroesophageal reflux disease with K21.0 Active esophagitis Problem Hyperlipidemia E78.5 Active Problem Hypertension I10 Active Problem Abnormal kidney function study R94.4 Active Problem 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 Medications Medication Code Code Instructions Start End Status Dosage System Date Date Levothyroxine [facility] 79715831687 75 MCG Orally Active 1 tablet on Sodium Once a day an empty stomach in the morning Suboxone [facility] 50138788568 8-2 MG Active 1 film Sublingual bid under the tongue and allow to dissolve Anoro Ellipta [facility] 58127972284 62.5mcg/25 mcg Active not defined Orally Spiriva [facility] 31619930253 18 MCG Active 1 capsule HandiHaler Inhalation Once a day Omeprazole ND 78160085783 40 MG Orally Oct 02, Active 1 capsule Once a day 2018 30 minutes before morning meal Metoprolol [facility] 78109998876 25 MG Orally April 28, Active 1 tablet Succinate ER Once a day 2017 Albuterol [facility] 40977920583 108 (90 Base) Active 2 puffs as Sulfate HFA MCG/ACT needed Inhalation every 6 hrs PredniSONE ND 74749627933 10 MG Orally Active 1 tablet Once a day Results No Known Results Summary Purpose eClinicalWorks Submission
[2019-10-18] MEDS ORDERED: IPRATROPIUM BROM 0.5MG/2.5ML ONE (14:49)
[2019-10-18] MEDS ORDERED: LEVALBUTEROL 1.25 MG/3 ML NEB ONE (14:50)
[2019-10-18] MEDS ORDERED: NA CHLORIDE 0.9% 2,000 ML ONE (15:05)
[2019-10-18] MEDS ORDERED: FAMOTIDINE 20 MG/2 ML VIAL IV ONE (15:05)
[2019-10-18] MEDS ORDERED: METHYLPREDNISOLONE 125 MG INJ ONE (15:05)
[2019-10-18] MEDS ORDERED: PIPER/TAZO/NS 3.375gm 3.375 GM/100 ML BAG ONE (15:06)
--- NOTE | 2019-10-18 15:30 | ER ---
Nurse's Notes [facility] Name: Samantha Smart Age: 54 yrs Sex: Female : 1965 Arrival Date: 10/18/2019 Time: 14:42 Bed 14 Private MD: Diagnosis: Dyspnea;Chronic obstructive pulmonary disease with (acute) exacerbation;Hypoxemia;Tobacco abuse counseling;Tobacco use;Influenza due to other identified influenza virus-Flu B;Bandemia Presentation: 10/18 16:24 Presenting complaint: EMS states: EMS reports patient has been SOB and had a productive ae4 sough since 08/14/19 and is now having increased SOB, weakness. Transition of care: patient was not received from another setting of care. Onset of symptoms was October 14, 2019. Risk Assessment: Do you want to hurt yourself or someone else? Patient reports no desire to harm self or others. Initial Sepsis Screen: Does the patient meet any 2 criteria? RR > 20 per min. HR > 90 bpm. Yes Does the patient have a suspected source of infection? Yes: Productive cough/pneumonia. 16:24 Acuity: SALENA 2 ae4 16:24 Method Of Arrival: EMS: [facility] ae4 Historical: - Allergies: 16:33 Iodine; ae4 16:33 Sulfa (Sulfonamide Antibiotics); ae4 - Home Meds: 16:33 Advair Diskus Inhl [Active]; Albuterol Inhl [Active]; Nexium 40 mg Oral cpDR 1 cap once ae4 daily [Active]; Prednisone Oral [Active]; Spiriva with HandiHaler inhalation [Active]; Suboxone [Active]; - PMHx: 16:33 COPD; Emphysema; ae4 - Immunization history:: Adult Immunizations not up to date. - Family history:: not pertinent. - Social history:: Smoking status: Patient uses tobacco products, smokes one-half pack cigarettes per day. - Ebola Screening: : Patient denies travel to an Ebola-affected area in the 21 days before illness onset. Screenin:38 Abuse screen: Denies threats or abuse. Nutritional screening: No deficits noted. ae4 Tuberculosis screening: No symptoms or risk factors identified. Fall Risk None identified. Assessment: 14:49 General: Appears distressed, uncomfortable, unkempt, Behavior is cooperative, anxious. ae4 Pain: Complains of pain in abdomen. Neuro: Level of Consciousness is awake, alert, obeys commands, Oriented to person, place, time, situation, Appropriate for age. Cardiovascular: Heart tones S1 S2 present Patient's skin is warm and dry. Rhythm is regular. Respiratory: Airway is patent Respiratory effort is even, labored, shallow, Respiratory pattern is regular, tachypnea Breath sounds are coarse Breath sounds with rales bilaterally. Breath sounds with wheezes bilaterally. GI: Reports upper abdominal pain, Patient states she thinks it's her GERD. : No signs and/or symptoms were reported regarding the genitourinary system. EENT: Oral mucosa is dry. Poor dentition noted. Derm: Skin is flushed. Musculoskeletal: Reports Generalized weakness. 19:00 General: Appears in no apparent distress. Behavior is appropriate for age. Pain: Denies ea pain. Neuro: Level of Consciousness is awake, alert, obeys commands, Oriented to person, place, time, situation. Cardiovascular: Patient's skin is warm and dry. Respiratory: Airway is patent Respiratory effort is even, unlabored, Respiratory pattern is regular, Pt currently on BiPAP, tolerating well. Derm: Skin is dry, Skin is pale, Skin temperature is warm. 19:45 Reassessment: Patient and/or family updated on plan of care and expected duration. Pain ea level reassessed. Patient is alert, oriented x 3, equal unlabored respirations, skin warm/dry/pink. Pt admitted to ICU, pt left ED via stretcher per ED nurse accompanied by respiratory. Pt placed on 3 L per nasal canula per respiratory, pt tolerating well. No s/s of pain or discomfort noted at this time. Vital Signs: 14:42 BP 121 / 90; Pulse 131; Resp 24; Temp 98.9(O); Pulse Ox 89% on R/A; ae4 14:57 Weight 69.85 kg (R); ae4 15:00 BP 107 / 83; Pulse 125; Resp 18; Pulse Ox 99% on 3 lpm NC; ae4 15:30 BP 126 / 86; Pulse 128; Resp 21; Pulse Ox 91% on 3 lpm NC; ae4 16:10 BP 106 / 75; Pulse 106; Resp 21; Pulse Ox 94% on 3 lpm NC; ae4 16:33 BP 99 / 71; Pulse 101; Resp 16; Pulse Ox 91% on 3 lpm NC; ae4 19:25 BP 102 / 59; Pulse 87; Resp 16; Temp 98; Pulse Ox 98% on R/A; ea 19:50 BP 103 / 56; Pulse 94; Resp 16; Pulse Ox 95% on 2 lpm NC; ea 16:33 Patient is resting with eyes closed, respirations are more relaxed. ae4 ED Course: 14:42 Patient arrived in ED. ae4 14:47 Stewart Reich MD is Attending Physician. michelle 14:54 Robert Seo, HUMAIRA is Primary Nurse. ae4 15:00 Bed in low position. Call light in reach. Side rails up X 1. Adult w/ patient. Cardiac ae4 monitor on. Pulse ox on. NIBP on. 15:25 Inserted saline lock: 18 gauge in right EJ, using aseptic technique. ,using aseptic ae4 technique. Inserted by Dr. Reich Blood collected. 15:27 Sonam Jurado MD is Hospitalizing Provider. [facility] 15:30 XRAY Chest (1 view) In Process Unspecified. EDMS 16:28 Triage completed. ae4 16:30 ABG Sent. ae4 16:35 Arm band placed on right wrist. EKG completed in triage. Results shown to MD. ae4 19:45 No provider procedures requiring assistance completed. Patient admitted, IV remains in ea place. Administered Medications: 14:45 Drug: Xopenex 3.75 mg Route: Inhalation; ae4 14:45 Drug: AtroVENT Aerosol 0.5 mg Route: Inhalation; ae4 15:29 Drug: NS 0.9% (30 ml/kg) 30 ml/kg Route: IV; Rate: bolus; Site: right jugular; ae4 17:00 Follow up: IV Status: Completed infusion; IV Intake: 2000ml ae4 15:30 Drug: Pepcid 20 mg Route: IVP; Site: right jugular; ae4 16:30 Follow up: Response: No adverse reaction ae4 15:31 Drug: SOLU-Medrol 125 mg Route: IVP; Site: right jugular; ae4 16:30 Follow up: Response: No adverse reaction ae4 15:37 Drug: Zosyn 3.375 grams Route: IVPB; Infused Over: 60 mins; Site: right jugular; ae4 16:47 Follow up: IV Status: Completed infusion; IV Intake: 100ml ae4 16:15 Drug: Zofran 4 mg Route: IVP; Site: right jugular; ae4 16:36 Follow up: Response: Nausea is decreased ae4 16:48 Drug: Zithromax 500 mg Route: IVPB; Infused Over: 1 hrs; Site: right jugular; ae4 17:55 Follow up: IV Status: Completed infusion; IV Intake: 250ml ae4 17:25 Drug: Decadron - Dexamethasone 10 mg Route: IVP; Site: right jugular; ae4 17:47 Follow up: Response: No adverse reaction ae4 19:30 Drug: Tamiflu 75 mg Route: PO; ea 19:45 Follow up: Response: No adverse reaction ea Intake: 16:47 IV: 100ml; Total: 100ml. ae4 17:00 IV: 2000ml; Total: 2100ml. ae4 17:55 IV: 250ml; Total: 2350ml. ae4 Outcome: 15:29 Decision to Hospitalize by Provider. michelle 19:26 Instructed on the need for admit, Demonstrated understanding of instructions. rose 19:45 Admitted to ICU accompanied by maninder, via stretcher, room 6, with oxygen, on monitor, ea with chart, Report called to Receiving nurse in ICU 20:09 Patient left the ED. ea Signatures: Dispatcher [employer] Stewart Morataya MD MD cha Antunez, Elena, RN RN Robert De La Torre, RN RN ae4
--- NOTE | 2019-10-18 15:31 | EDPHYS ---
Physician Documentation [facility] Name: Samantha Smart Age: 54 yrs Sex: Female : 1965 Arrival Date: 10/18/2019 Time: 14:42 Bed 14 Private MD: ED Physician Stewart Reich HPI: 10/18 14:53 This 54 yrs old Female presents to ER via Unassigned with complaints of michelle Productive Cough, Shortness Of Breath. 14:53 The patient or guardian reports airway noise, cough, difficulty breathing, flu michelle symptoms. Onset: The symptoms/episode began/occurred 3 day(s) ago. Severity of symptoms: At their worst the symptoms were mild, moderate, in the emergency department the symptoms are unchanged. Modifying factors: The symptoms are alleviated by nothing, the symptoms are aggravated by cold weather. Associated signs and symptoms: Pertinent positives: fever, nausea, rhinorrhea. The patient has experienced similar episodes in the past, multiple times. Historical: - Allergies: 16:33 Iodine; ae4 16:33 Sulfa (Sulfonamide Antibiotics); ae4 - Home Meds: 16:33 Advair Diskus Inhl [Active]; Albuterol Inhl [Active]; Nexium 40 mg Oral cpDR 1 cap once ae4 daily [Active]; Prednisone Oral [Active]; Spiriva with HandiHaler inhalation [Active]; Suboxone [Active]; - PMHx: 16:33 COPD; Emphysema; ae4 - Immunization history:: Adult Immunizations not up to date. - Family history:: not pertinent. - Social history:: Smoking status: Patient uses tobacco products, smokes one-half pack cigarettes per day. - Ebola Screening: : Patient denies travel to an Ebola-affected area in the 21 days before illness onset. ROS: 14:53 Constitutional: Negative for fever, chills, and weight loss, Eyes: Negative for injury, michelle pain, redness, and discharge, ENT: Negative for injury, pain, and discharge, Neck: Negative for injury, pain, and swelling, Abdomen/GI: Negative for abdominal pain, nausea, vomiting, diarrhea, and constipation, Back: Negative for injury and pain, : Negative for injury, bleeding, discharge, and swelling, MS/Extremity: Negative for injury and deformity, Skin: Negative for injury, rash, and discoloration, Neuro: Negative for headache, weakness, numbness, tingling, and seizure, Psych: Negative for depression, anxiety, suicide ideation, homicidal ideation, and hallucinations, Allergy/Immunology: Negative for hives, rash, and allergies, Endocrine: Negative for neck swelling, polydipsia, polyuria, polyphagia, and marked weight changes, Hematologic/Lymphatic: Negative for swollen nodes, abnormal bleeding, and unusual bruising. 14:53 Cardiovascular: Positive for chest pain, orthopnea, palpitations. 14:53 Respiratory: Positive for cough, shortness of breath, wheezing, inspiratory, expiratory. Exam: 14:53 Constitutional: This is a well developed, well nourished patient who is awake, alert, michelle and in no acute distress. Head/Face: Normocephalic, atraumatic. Eyes: Pupils equal round and reactive to light, extra-ocular motions intact. Lids and lashes normal. Conjunctiva and sclera are non-icteric and not injected. Cornea within normal limits. Periorbital areas with no swelling, redness, or edema. ENT: Nares patent. No nasal discharge, no septal abnormalities noted. Tympanic membranes are normal and external auditory canals are clear. Oropharynx with no redness, swelling, or masses, exudates, or evidence of obstruction, uvula midline. Mucous membranes moist. Neck: Trachea midline, no thyromegaly or masses palpated, and no cervical lymphadenopathy. Supple, full range of motion without nuchal rigidity, or vertebral point tenderness. No Meningismus. Chest/axilla: Normal chest wall appearance and motion. Nontender with no deformity. No lesions are appreciated. Abdomen/GI: Soft, non-tender, with normal bowel sounds. No distension or tympany. No guarding or rebound. No evidence of tenderness throughout. Back: No spinal tenderness. No costovertebral tenderness. Full range of motion. Skin: Warm, dry with normal turgor. Normal color with no rashes, no lesions, and no evidence of cellulitis. Neuro: Awake and alert, GCS 15, oriented to person, place, time, and situation. Cranial nerves II-XII grossly intact. Motor strength 5/5 in all extremities. Sensory grossly intact. Cerebellar exam normal. Normal gait. Psych: Awake, alert, with orientation to person, place and time. Behavior, mood, and affect are within normal limits. 14:53 Cardiovascular: Rate: tachycardic, Rhythm: regular, Pulses: Pulses are 4+ in bilateral radial, brachial, femoral, popliteal, posterior tibial and and dorsalis pedis arteries.. Heart sounds: normal, Edema: 1+ edema to level of left midcalf and right midcalf, JVD: is not appreciated. Vital Signs: 14:42 BP 121 / 90; Pulse 131; Resp 24; Temp 98.9(O); Pulse Ox 89% on R/A; ae4 14:57 Weight 69.85 kg (R); ae4 15:00 BP 107 / 83; Pulse 125; Resp 18; Pulse Ox 99% on 3 lpm NC; ae4 15:30 BP 126 / 86; Pulse 128; Resp 21; Pulse Ox 91% on 3 lpm NC; ae4 16:10 BP 106 / 75; Pulse 106; Resp 21; Pulse Ox 94% on 3 lpm NC; ae4 16:33 BP 99 / 71; Pulse 101; Resp 16; Pulse Ox 91% on 3 lpm NC; ae4 19:25 BP 102 / 59; Pulse 87; Resp 16; Temp 98; Pulse Ox 98% on R/A; ea 19:50 BP 103 / 56; Pulse 94; Resp 16; Pulse Ox 95% on 2 lpm NC; ea 16:33 Patient is resting with eyes closed, respirations are more relaxed. ae4 Procedures: 15:20 Peripheral line: by aseptic technique a peripheral line was placed in the right [facility] external jugular vein. MDM: 14:47 Patient medically screened. [facility] 14:56 Data reviewed: vital signs, nurses notes, lab test result(s), EKG, radiologic studies, [facility] plain films. 10/18 14:53 Order name: Basic Metabolic Panel; Complete Time: 19:19 [facility] 10/18 14:53 Order name: CBC with Diff; Complete Time: 19:20 [facility] 10/18 14:53 Order name: LFT's; Complete Time: 19:20 [facility] 10/18 14:53 Order name: Magnesium; Complete Time: 19:20 [facility] 10/18 14:53 Order name: NT PRO-BNP; Complete Time: 19:20 [facility] 10/18 14:53 Order name: PT-INR; Complete Time: 19:20 [facility] 10/18 14:53 Order name: Troponin (emerg Dept Use Only); Complete Time: 19:20 [facility] 10/18 14:53 Order name: Blood Culture Adult (2) [facility] 10/18 14:53 Order name: Ckmb; Complete Time: 19:20 [facility] 10/18 14:53 Order name: CPK; Complete Time: 19:20 [facility] 10/18 14:53 Order name: Lactate; Complete Time: 19:20 [facility] 10/18 14:53 Order name: Lipase; Complete Time: 19:20 [facility] 10/18 14:53 Order name: Procalcitonin; Complete Time: 19:20 [facility] 10/18 14:53 Order name: Ptt, Activated; Complete Time: 19:20 [facility] 10/18 14:53 Order name: XRAY Chest (1 view); Complete Time: 19:20 [facility] 10/18 14:53 Order name: Urine Microscopic Only; Complete Time: 19:20 [facility] 10/18 15:20 Order name: ABG; Complete Time: 19:20 [facility] 10/18 16:10 Order name: Manual Differential; Complete Time: 19:20 [facility] 10/18 16:38 Order name: Glucose, Ancillary Testing; Complete Time: 19:20 [facility] 10/18 16:45 Order name: Urine Dipstick--Ancillary (enter results); Complete Time: 19:20 10/18 16:50 Order name: CBC with Automated Diff [facility] 10/18 16:50 Order name: CBC with Automated Diff [facility] 10/18 16:50 Order name: Comprehensive Metabolic Panel [facility] 10/18 16:50 Order name: Comprehensive Metabolic Panel [facility] 10/18 16:57 Order name: BIPAP [facility] 10/18 17:06 Order name: Flu; Complete Time: 19:20 10/18 14:53 Order name: EKG; Complete Time: 14:55 [facility] 10/18 14:53 Order name: Cardiac monitoring; Complete Time: 14:58 [facility] 10/18 14:53 Order name: EKG - Nurse/Tech; Complete Time: 16:36 [facility] 10/18 14:53 Order name: IV Saline Lock; Complete Time: 16:36 [facility] 10/18 14:53 Order name: Labs collected and sent; Complete Time: 16:37 [facility] 10/18 14:53 Order name: O2 Per Protocol; Complete Time: 14:58 [facility] 10/18 14:53 Order name: O2 Sat Monitoring; Complete Time: 14:58 [facility] 10/18 14:53 Order name: Accucheck; Complete Time: 16:30 [facility] 10/18 14:53 Order name: IV Saline Lock - Large Bore; Complete Time: 15:42 [facility] 10/18 14:53 Order name: Urine Dipstick-Ancillary (obtain specimen); Complete Time: 16:31 [facility] 10/18 16:49 Order name: CONS Pharmacy Consult EDNM 10/18 16:50 Order name: Heart Healthy EDMS Administered Medications: 14:45 Drug: Xopenex 3.75 mg Route: Inhalation; ae4 14:45 Drug: AtroVENT Aerosol 0.5 mg Route: Inhalation; ae4 15:29 Drug: NS 0.9% (30 ml/kg) 30 ml/kg Route: IV; Rate: bolus; Site: right jugular; ae4 17:00 Follow up: IV Status: Completed infusion; IV Intake: 2000ml ae4 15:30 Drug: Pepcid 20 mg Route: IVP; Site: right jugular; ae4 16:30 Follow up: Response: No adverse reaction ae4 15:31 Drug: SOLU-Medrol 125 mg Route: IVP; Site: right jugular; ae4 16:30 Follow up: Response: No adverse reaction ae4 15:37 Drug: Zosyn 3.375 grams Route: IVPB; Infused Over: 60 mins; Site: right jugular; ae4 16:47 Follow up: IV Status: Completed infusion; IV Intake: 100ml ae4 16:15 Drug: Zofran 4 mg Route: IVP; Site: right jugular; ae4 16:36 Follow up: Response: Nausea is decreased ae4 16:48 Drug: Zithromax 500 mg Route: IVPB; Infused Over: 1 hrs; Site: right jugular; ae4 17:55 Follow up: IV Status: Completed infusion; IV Intake: 250ml ae4 17:25 Drug: Decadron - Dexamethasone 10 mg Route: IVP; Site: right jugular; ae4 17:47 Follow up: Response: No adverse reaction ae4 19:30 Drug: Tamiflu 75 mg Route: PO; ea 19:45 Follow up: Response: No adverse reaction ea Disposition: 10/18/19 15:29 Hospitalization ordered by Sonam Jurado for Inpatient Admission. Preliminary diagnosis are Dyspnea, Chronic obstructive pulmonary disease with (acute) exacerbation, Hypoxemia, Tobacco abuse counseling, Tobacco use, Influenza due to other identified influenza virus - Flu B, Bandemia. - Bed requested for Intensive Care Unit. - Status is Inpatient Admission. ea - Condition is Fair. - Problem is new. - Symptoms have worsened. UTI on Admission? No Signatures: Dispatcher [employer] EDStewart Kang MD MD cha Antunez, Elena RN Rl Watkins ea, RN RN ja1 Izabel Monsalve Andrea, RN RN ae4 Corrections: (The following items were deleted from the chart) 17:03 15:29 Hospitalization Ordered by Sonam Jurado MD for Inpatient Admission. Preliminary eb diagnosis is Dyspnea; Chronic obstructive pulmonary disease with (acute) exacerbation; Hypoxemia; Tobacco abuse counseling; Tobacco use. Bed requested for Telemetry/MedSurg (Inpatient). Status is Inpatient Admission. Condition is Fair. Problem is new. Symptoms have worsened. UTI on Admission? No. michelle 18:31 17:03 10/18/2019 15:29 Hospitalization Ordered by Sonam Jurado MD for Inpatient ja1 Admission. Preliminary diagnosis is Dyspnea; Chronic obstructive pulmonary disease with (acute) exacerbation; Hypoxemia; Tobacco abuse counseling; Tobacco use. Bed requested for [facility] ER HOLD. Status is Inpatient Admission. Condition is Fair. Problem is new. Symptoms have worsened. UTI on Admission? No. eb 18:31 18:31 10/18/2019 15:29 Hospitalization Ordered by Sonam Jurado MD for Inpatient eb Admission. Preliminary diagnosis is Dyspnea; Chronic obstructive pulmonary disease with (acute) exacerbation; Hypoxemia; Tobacco abuse counseling; Tobacco use. Bed requested for Intensive Care Unit. Status is Inpatient Admission. Condition is Fair. Problem is new. Symptoms have worsened. UTI on Admission? No. ja1 19:22 18:31 10/18/2019 15:29 Hospitalization Ordered by Sonam Jurado MD for Inpatient michelle Admission. Preliminary diagnosis is Dyspnea; Chronic obstructive pulmonary disease with (acute) exacerbation; Hypoxemia; Tobacco abuse counseling; Tobacco use. Bed requested for Intensive Care Unit. Status is Inpatient Admission. Condition is Fair. Problem is new. Symptoms have worsened. UTI on Admission? No. eb 20:09 19:22 10/18/2019 15:29 Hospitalization Ordered by Sonam Jurado MD for Inpatient ea Admission. Preliminary diagnosis is Dyspnea; Chronic obstructive pulmonary disease with (acute) exacerbation; Hypoxemia; Tobacco abuse counseling; Tobacco use; Influenza due to other identified influenza virus - Flu B; Bandemia. Bed requested for Intensive Care Unit. Status is Inpatient Admission. Condition is Fair. Problem is new. Symptoms have worsened. UTI on Admission? No. michelle
[2019-10-18 15:36] LABS: Absolute Lymphocytes (CBC) 1.9 K/uL (0.7-4.9); Basophils % 0.6 % (0-1.3); Hematocrit 49.3 % (36.0-45.0); Lymphocytes % 21.3 % (15.3-44.8); MPV 9.5 fL (7.6-11.3); RBC Red Blood Cell Count 5.22 M/uL (3.86-4.86)
[2019-10-18 15:43] LABS: Protime INR 1.03
[2019-10-18 15:54] LABS: ALT/SGPT 70 U/L (12-78); AST/SGOT 79 U/L (15-37); Albumin 3.2 g/dL (3.4-5.0); Alkaline Phosphatase 132 U/L (45-117); BUN Blood Urea Nitrogen 18 mg/dL (7-18); Bicarbonate 31 mmol/L (21-32); Bilirubin Direct 0.2 mg/dL (0-0.2); Bilirubin Total 0.5 mg/dL (0.2-1.0); CKMB Creatine Kinase MB 1.1 ng/mL (0.3-3.6); Creatine Phosphokinase 52 U/L (26-192); Glucose Level 91 mg/dL (74-106); Lipase 165 U/L (73-393); Magnesium 2.1 mg/dL (1.8-2.4); NT PRO-BNP 722 pg/mL (<125); Potassium 3.9 mmol/L (3.5-5.1); Protein, Total 6.9 g/dL (6.4-8.2); Sodium Level 135 mmol/L (136-145); Troponin (Emerg Dept Use Only) < 0.02 ng/mL (0.0-0.045)
[2019-10-18] MEDS ORDERED: AZITHROMYCIN IV 500 MG in NA CHLORIDE 0.9% 250 ML IVPB ONE (16:00)
[2019-10-18 16:10] LABS: Blood Morphology Comment NOT SEEN (NOT SEEN); Platelet Estimate DECR
[2019-10-18] MEDS ORDERED: ONDANSETRON 4 MG/2 ML VIAL ONE (16:14)
[2019-10-18 16:28] LABS: Arterial Blood Carboxyhemoglob 0.7 % (0-1.5); Blood Gas Oxyhemoglobin 88.8 % (94-97); Blood O2 Saturation 90.2 % (92-98.5)
[2019-10-18] MEDS ORDERED: MORPHINE 2 MG/ML SYR IV PRN (16:42)
[2019-10-18] MEDS ORDERED: GUAIFENESIN/DM 5 ML UCUP PO PRN (16:44)
[2019-10-18] MEDS ORDERED: HYDRALAZINE HCL 20 MG/ML VIAL IV PRN (16:44)
[2019-10-18] MEDS: HEPARIN 5000 UNIT/ML 1 ML VIAL SQ SCH ×2 (17:00→21:23)
--- NOTE | 2019-10-18 17:03 | RAD REPORT ---
EXAM DESCRIPTION: O[place] Single View10/18/2019 3:33 pm CLINICAL HISTORY: cough COMPARISON: 2017 FINDINGS: The lungs are hyperaerated The lungs appear clear of acute infiltrate. The heart is normal size IMPRESSION: No acute abnormalities displayed
[2019-10-18 17:13] LABS: Urine Blood NEGATIVE (NEG); Urine Glucose NEGATIVE (NEG); Urine Protein NEGATIVE (NEG); Urine Specific Gravity 1.025 (1.005-1.030)
[2019-10-18] MEDS ORDERED: dexAMETHasone 10 MG/ML VIAL ONE (17:25)
[2019-10-18 17:55] LABS: Urine Bacteria <20 /HPF (<20); Urine Culture Reflex Order NOT NEEDED; Urine RBC <5 /HPF (NONE SEEN)
[2019-10-18] MEDS: METHYLPREDNISOLONE 125 MG INJ IV SCH (18:00)
[2019-10-18] MEDS ORDERED: OSELTAMIVIR 75 MG CAP ONE (19:33)
[2019-10-18] MEDS: ACETYLCYST 20% 4 ML VIAL IH SCH (20:00)
[2019-10-18] MEDS: IPRATROPIUM BROM 0.5MG/2.5ML NEB SCH (20:50)
[2019-10-18] MEDS: ALBUTEROL 2.5 MG/3 ML NEB SOL NEB SCH (20:50)
[2019-10-18] MEDS ORDERED: FAMOTIDINE 20 MG TAB PO SCH (21:00)
[2019-10-18] MEDS: GUAIFENESIN 600 MG SA TAB PO SCH (21:22)
[2019-10-19] MEDS: METHYLPREDNISOLONE 125 MG INJ IV SCH ×2 (00:54→06:00)
[2019-10-19] MEDS: ACETYLCYST 20% 4 ML VIAL IH SCH (02:00)
[2019-10-19] MEDS: ALBUTEROL 2.5 MG/3 ML NEB SOL NEB SCH (02:15)
[2019-10-19] MEDS: IPRATROPIUM BROM 0.5MG/2.5ML NEB SCH (02:15)
--- NOTE | 2019-10-19 03:25 | HP ---
Date of Admission: 10/18/2019 Presenting Complaint: Shortness of breath and cough. History Of Present Illness: Ms. Samantha Smart, 54-year-old female with past medical history of COPD on home nebulizer, presented because of worsening cough, shortness of breath and body aches since the last 4 days. Patient admits to history of cough contact with her grandson. She denies any fever or chills. In the ED, she uses home O2 2 L at baseline. On arrival in the ED, she was noted with O2 saturation of 89% on room air with labored breathing. She was started on Duo nebs and someho w she feels better now, but she is still having significant cough symptoms. Past Medical History: COPD, chronic steroid use, chronic tobacco use. Past Surgical History: Tonsillectomy as well as hysterectomy. Allergies: SULFA WELL LEVAQUIN. Social History: Patient resides in the community. She lives with the family. She admits to chronic ongoing tobacco use, 1 pack per day. No history of alcohol or illicit drug use. Family History: Significant for lung cancer. Home Medications: See medication list. Review of Systems: All systems reviewed x14 were negative except as mentioned above. Physical Examination: Current Vitals: Blood pressure of 99/56, pulse of 89, respiratory rate of 20, O2 saturation is 95% o n 2 L, temperature afebrile. General: Obese middle-age female, anxious. HEENT: Head is atraumatic, normocephalic. Pupils equal, reactive to light. Mild facial puffiness n oted. Moist oral mucosa. Neck: No JVD. No carotid bruit. Respiratory: Coarse crepitations with expiratory wheezes bilaterally. Cardiovascular: S1, S2. Rate and rhythm regular. GI: Abdomen full, soft, nontender. Bowel sounds positive. Extremities: No pedal edema. No calf tenderness. Neuro: Patient is alert, oriented. Cranial nerves 2 through 12 grossly intact. Laboratory Data: WBC 9, neutrophils 67%, 4% bands, hemoglobin 16. INR 1.03. ABG shows pH of 7.4, p CO2 of 52, PO2 of 60. Potassium 3.9, sodium 135, magnesium 2.1. Troponin less than 0.02. ProBNP of 722, glucose 91. Urinalysis pending. Chest x-ray shows no acute infiltrate. Impression: 1.Acute chronic obstructive pulmonary disease exacerbation. 2.Chronic steroid use. Plan: We will admit patient to inpatient status. We will manage patient for the following 1.Acute COPD exacerbation. We will start empirical nebs, antibiotics with Rocephin, IV steroids as well as mucolytics with guaifenesin. We will also add Mucomyst given persistent chest congestive sym ptoms via nebulizer. We will do obtain blood culture. We will also monitor vitals. Continue IV flu id given borderline low blood pressure. We will do subcutaneous Lovenox for DVT prophylaxis. We kane l do nicotine patch for smoking. May need pulmonary consult if the persistent symptoms. Advanced directives: Patient is full code. EO/MODL Voice ID: [id number]
[2019-10-19 05:08] LABS: Absolute Lymphocytes (CBC) 0.5 K/uL (0.7-4.9); Basophils % 0.4 % (0-1.3); Hematocrit 40.5 % (36.0-45.0); Lymphocytes % 7.6 % (15.3-44.8); MPV 9.4 fL (7.6-11.3)
[2019-10-19 05:21] LABS: Albumin 2.3 g/dL (3.4-5.0); Bilirubin Total 0.4 mg/dL (0.2-1.0); Potassium 4.8 mmol/L (3.5-5.1); Protein, Total 5.3 g/dL (6.4-8.2)
[2019-10-19] MEDS ORDERED: BENZONATATE 100 MG CAP PO PRN (06:24)
--- NOTE | 2019-10-19 08:09 | RAD REPORT ---
EXAM DESCRIPTION: RAD - Chest Pa And Lat (2 Views) - 10/19/2019 7:24 am CLINICAL HISTORY: follow up COPD, flu, dyspnea COMPARISON: October 18 TECHNIQUE: PA and lateral views of the chest were obtained. FINDINGS: The lungs are fibrotic with flattened diaphragm and increased retrosternal space. No new o r progressive lung parenchymal process. Heart size is normal and central vasculature is within norm al limits. No pleural effusion or pneumothorax seen. No acute bony finding noted. No aortic abnorm ality. IMPRESSION: Mild to moderate COPD pattern with no new or progressive finding.
[2019-10-19] MEDS ORDERED: CEFTRIAXONE 1 GM/NS 50 ML 1 GM/50 ML BAG IV SCH (09:00)
--- NOTE | 2019-10-19 09:11 | P.PN ---
Subjective Date of Service: 10/19/19 Primary Care Provider: Lali Landis NP; Pulmonary-Dr. Garcia Chief Complaint: Shortness of breath Subjective: Improving, Doing well Physical Examination - Vital Signs Temperature: 96.8 F Blood Pressure: 109/67 Pulse: 67 Respirations: 11 Pulse Ox (%): 93 - Physical Exam General: Alert, In no apparent distress, Oriented x3, Cooperative HEENT: Atraumatic Neck: Supple Respiratory: Expiratory wheezes, Inspiratory wheezes Cardiovascular: Normal pulses, Regular rate/rhythm Gastrointestinal: Normal bowel sounds, Soft and benign, Non-distended, No tenderness, No masses, No rebound, No guarding Musculoskeletal: No warmth Neurological: Normal speech, Normal strength at 5/5 x4 extr, Normal tone, Normal affect - Studies Laboratory Data (last 24 hrs) 10/18/19 15:22: PT 12.1, INR 1.03, APTT 30.0 10/18/19 15:22: WBC 9.0, Hgb 16.0 H, Hct 49.3 H, Plt Count 100 L 10/18/19 15:22: Sodium 135 L, Potassium 3.9, BUN 18, Creatinine 1.07, Glucose 91 , Magnesium 2.1, Total Bilirubin 0.5, AST 79 H, ALT 70, Alkaline Phosphatase 132 H, Lipase 165 Medications List Reviewed: Yes Assessment & Plan Discharge Plan: Home Plan to discharge in: 48 Hours Physician Review Additional Text: Impression: Shortness of breath secondary to COPD exacerbation on chronic oxygen and steroids Positive Influenza B GERD Acute renal injury Tobacco abuse Plan: Shortness of breath secondary to COPD exacerbation on chronic oxygen and steroids: Patient is slowly improving. Continue to adjust medications. Continue COPD medication. Will adjust IV steroids to oral. Will provide incentive spirometer. Will wean off oxygen. Patient uses home oxygen and oral steroids at home. Anticipate discharge in the next 24-48 hr with clinical improvement. Positive influenza B: Continue with Tamiflu. GERD: Continue with medication Acute renal injury likely dehydration: Continue with IV fluids. Encourage oral intake. Encourage ambulation. Tobacco abuse: Continue with tobacco cessation education. Will provide nicotine patch. Time Spent Managing Pts Care (In Minutes): 55
[2019-10-19] MEDS: HEPARIN 5000 UNIT/ML 1 ML VIAL SQ SCH ×2 (09:33→22:08)
[2019-10-19] MEDS: OSELTAMIVIR 75 MG CAP PO SCH ×2 (09:34→22:08)
[2019-10-19] MEDS: predniSONE 20 MG TAB PO SCH ×2 (09:34→22:08)
[2019-10-19] MEDS: NICOTINE 21 MG/PAT TD SCH (09:34)
[2019-10-19] MEDS: PANTOPRAZOLE 40MG TABLET PO SCH (09:36)
[2019-10-19] MEDS: GUAIFENESIN 600 MG SA TAB PO SCH ×2 (09:39→22:09)
[2019-10-19] MEDS: ONDANSETRON 4 MG/2 ML VIAL IV PRN ×2 (10:11→19:21)
[2019-10-19] MEDS: ALBUTEROL 2.5 MG/3 ML NEB SOL NEB PRN (20:30)
[2019-10-19] MEDS: IPRATROPIUM BROM 0.5MG/2.5ML NEB PRN (20:30)
[2019-10-19] MEDS: ACETAMINOPHEN 500 MG TAB PO PRN (22:18)
[2019-10-20] MEDS: ONDANSETRON 4 MG/2 ML VIAL IV PRN (04:35)
[2019-10-20] MEDS: ACETAMINOPHEN 500 MG TAB PO PRN (04:44)
[2019-10-20] MEDS: ALBUTEROL 2.5 MG/3 ML NEB SOL NEB PRN (05:50)
[2019-10-20] MEDS: IPRATROPIUM BROM 0.5MG/2.5ML NEB PRN (05:50)
[2019-10-20] MEDS: PANTOPRAZOLE 40MG TABLET PO SCH (06:18)
[2019-10-20 06:27] VITALS: BMI 27.3
[2019-10-20 06:28] VITALS: O2SAT 95
[2019-10-20 06:50] LABS: Absolute Lymphocytes (CBC) 1.8 K/uL (0.7-4.9); Basophils % 0.1 % (0-1.3); Hematocrit 43.6 % (36.0-45.0); Lymphocytes % 20.7 % (15.3-44.8); MPV 9.8 fL (7.6-11.3); RBC Red Blood Cell Count 4.54 M/uL (3.86-4.86)
[2019-10-20 07:12] LABS: Magnesium 2.4 mg/dL (1.8-2.4); Potassium 5.1 mmol/L (3.5-5.1)
[2019-10-20 09:03] LABS: Blood Morphology Comment NOT SEEN (NOT SEEN); Platelet Estimate ADEQ
[2019-10-20] MEDS: NICOTINE 21 MG/PAT TD SCH (09:59)
[2019-10-20] MEDS: HEPARIN 5000 UNIT/ML 1 ML VIAL SQ SCH (10:00)
[2019-10-20] MEDS: OSELTAMIVIR 75 MG CAP PO SCH (10:00)
[2019-10-20] MEDS: GUAIFENESIN 600 MG SA TAB PO SCH (10:00)
[2019-10-20] MEDS: predniSONE 20 MG TAB PO SCH (10:00)
--- NOTE | 2019-10-20 11:22 | P.DS ---
Admission Date: 10/18/19 Discharge Date: 10/20/19 Primary Care Provider: Lali Landis NP; Pulmonary-Dr. Garcia Disposition: ROUTINE DISCHARGE Discharge Condition: GOOD Reason for Admission: Shortness of breath Hospital Course: Patient with history of COPD on home O2 and chronic steroids admitted for worsening shortness of breath, wheezy. She was not hypoxic on presentation that has been increased tachypnea. She was admitted and started on empirical antibiotics, steroids and duo nebs. Flu swab was sent and positive for influenza B. Patient was started on Tamiflu. She will be discharged home today after improved clinical symptoms. She will continue on Tamiflu for a 5 day course. Vital Signs/Physical Exam: Temp Pulse Resp BP Pulse Ox 97.2 F 93 H 18 139/70 95 10/20/19 08:00 10/20/19 08:00 10/20/19 08:00 10/20/19 08:00 10/20/19 08:00 General: Alert, Oriented x3 (facial puffiness) HEENT: Atraumatic, Normocephalic Neck: Supple, 2+ carotid pulse no bruit Respiratory: Clear to auscultation bilaterally, Normal air movement Cardiovascular: Normal pulses, Regular rate/rhythm, Normal S1 S2 Gastrointestinal: Normal bowel sounds, Soft and benign Musculoskeletal: No clubbing, No swelling Integumentary: No rashes, No breakdown Neurological: Normal gait, Normal speech Laboratory Data at Discharge: WBC 8.5 K/uL (4.3-10.9) D 10/20/19 06:09 Hgb 14.1 g/dL (12.0-15.0) 10/20/19 06:09 Hct 43.6 % (36.0-45.0) 10/20/19 06:09 Plt Count 108 K/uL (152-406) L D 10/20/19 06:09 PT 12.1 SECONDS (9.5-12.5) 10/18/19 15:22 INR 1.03 10/18/19 15:22 APTT 30.0 SECONDS (24.3-36.9) 10/18/19 15:22 Sodium 139 mmol/L (136-145) 10/20/19 06:09 Potassium 5.1 mmol/L (3.5-5.1) 10/20/19 06:09 BUN 20 mg/dL (7-18) H 10/20/19 06:09 Creatinine 1.08 mg/dL (0.55-1.3) 10/20/19 06:09 Glucose 97 mg/dL (74-106) 10/20/19 06:09 Magnesium 2.4 mg/dL (1.8-2.4) 10/20/19 06:09 Total Bilirubin 0.4 mg/dL (0.2-1.0) 10/19/19 04:45 AST 73 U/L (15-37) H 10/19/19 04:45 ALT 60 U/L (12-78) 10/19/19 04:45 Alkaline Phosphatase 88 U/L (45-117) 10/19/19 04:45 Lipase 165 U/L (73-393) 10/18/19 15:22 Home Medications: Albuterol Neb [Proventil 0.083% Neb Soln] 2.5 mg IH Q6HP PRN 10/18/19 Albuterol Sulfate [Proair Hfa] 1 puff IH PRN PRN 10/18/19 Fluticasone/Salmeterol [Advair 250-50 Diskus] 2 puff IH BID 10/18/19 Benzonatate [Tessalon Perle*] 100 mg PO TID PRN #15 cap 10/20/19 Nicotine [Nicoderm*] 21 mg TD DAILY #21 patch.td24 10/20/19 Omeprazole [Prilosec] 40 mg PO DAILY #30 capsule. 10/20/19 Oseltamivir [Tamiflu*] 75 mg PO BID #9 cap 10/20/19 predniSONE [Prednisone] 10 mg PO DAILY #30 tablet 10/20/19 New Medications: Benzonatate [Tessalon Perle*] 100 mg PO TID PRN #15 cap PRN Reason: Cough Nicotine [Nicoderm*] 21 mg TD DAILY #21 patch.td24 Omeprazole [Prilosec] 40 mg PO DAILY #30 capsule. Oseltamivir [Tamiflu*] 75 mg PO BID #9 cap predniSONE [Prednisone] 10 mg PO DAILY #30 tablet Patient Discharge Instructions: - May increase home oxygen rate to 3 L with exertion for now Diet: Regular Activity: Ad tessa Time spent managing pt's care (in minutes): 35
[2019-10-20 13:05] VITALS: BP 117/79; TEMP 96.8
== END 2019-10-20 15:00 | disposition home or self-care (01) | DRG 191 ==
LOC: ER 14:35 → ERHOLD 16:47 → 3RD-ICU 19:38 → 4TH 10-19 15:45
PROVIDERS: ADMIT Family Medicine; ATTEND Family Medicine
DX: J44.1 Chronic obstructive pulmonary disease with (acute) exacerbation (principal); N17.9 Acute kidney failure, unspecified; J11.1 Influenza due to unidentified influenza virus with other respiratory manifestations; K21.9 Gastro-esophageal reflux disease without esophagitis; F17.210 Nicotine dependence, cigarettes, uncomplicated; Z99.81 Dependence on supplemental oxygen; Z79.52 Long term (current) use of systemic steroids
CPT/HCPCS: 36415; 71045; 71046; 80048; 80053; 80076; 81003; 81015; 82550; 82553; 82805; 82947; 83605; 83690; 83735; 83880; 84145; 84484; 85025; 85610; 85730; 87040; 87070; 87205; 87804; 94660; 96365; 96367; 96375; 99285; J0456; J0696; J1100; J1644; J2405; J2543; J2930; J7030; J7512

== ENCOUNTER 2019-10-21 04:12 | Inpatient (IN) | payer OTHER ==
--- OUTSIDE RECORDS SUMMARY | 2019-10-21 04:14 | XMS REPORT ---
[...] End Status Dosage System Date Date Levothyroxine [facility] 23352746157 75 MCG Orally Active 1 tablet on Sodium Once a day an empty stomach in the morning Suboxone [facility] 93875520393 8-2 MG Active 1 film Sublingual bid under the tongue and allow to dissolve Anoro Ellipta [facility] [id number] 62.5mcg/25 mcg Active not defined Orally Spiriva [facility] [id number] 18 MCG Active 1 capsule HandiHaler Inhalation Once a day Omeprazole ND 80966288785 40 MG Orally Oct 02, Active 1 capsule Once a day 2018 30 minutes before morning meal Metoprolol [facility] 36850873783 25 MG Orally April 28, Active 1 tablet Succinate ER Once a day 2017 Albuterol [facility] 72645874222 108 (90 Base) Active 2 puffs as Sulfate HFA MCG/ACT needed Inhalation every 6 hrs PredniSONE ND 22738693912 10 MG Orally Active 1 tablet Once a day Results No Known Results Summary Purpose eClinicalWorks Submission
[2019-10-21] MEDS ORDERED: ALBUTEROL 2.5 MG/3 ML NEB SOL ONE ×2 (04:52→07:59)
[2019-10-21] MEDS ORDERED: IPRATROPIUM BROM 0.5MG/2.5ML ONE ×2 (04:53→07:59)
[2019-10-21] MEDS ORDERED: predniSONE 20 MG TAB ONE (04:53)
[2019-10-21 04:58] LABS: Arterial Blood Carboxyhemoglob 0.4 % (0-1.5); Blood Gas Oxyhemoglobin 93.5 % (94-97); Blood O2 Saturation 94.5 % (92-98.5)
[2019-10-21 04:59] LABS: Absolute Lymphocytes (CBC) 1.5 K/uL (0.7-4.9); Basophils % 0.4 % (0-1.3); Hematocrit 49.2 % (36.0-45.0); Lymphocytes % 13.6 % (15.3-44.8); MPV 9.4 fL (7.6-11.3); RBC Red Blood Cell Count 5.18 M/uL (3.86-4.86)
[2019-10-21 05:09] LABS: Protime INR 0.93
[2019-10-21 05:24] LABS: ALT/SGPT 72 U/L (12-78); AST/SGOT 77 U/L (15-37); Albumin 3.3 g/dL (3.4-5.0); Alkaline Phosphatase 100 U/L (45-117); BUN Blood Urea Nitrogen 20 mg/dL (7-18); Bicarbonate 35 mmol/L (21-32); Bilirubin Direct 0.2 mg/dL (0-0.2); Bilirubin Total 0.4 mg/dL (0.2-1.0); Glucose Level 82 mg/dL (74-106); Magnesium 2.6 mg/dL (1.8-2.4); NT PRO-BNP 692 pg/mL (<125); Potassium 4.8 mmol/L (3.5-5.1); Protein, Total 7.3 g/dL (6.4-8.2); Sodium Level 137 mmol/L (136-145); Troponin (Emerg Dept Use Only) < 0.02 ng/mL (0.0-0.045)
[2019-10-21] MEDS ORDERED: ACETAMINOPHEN 325 MG TABLET ONE (05:27)
--- NOTE | 2019-10-21 05:58 | ER ---
Nurse's Notes [facility] Name: Samantha Smart Age: 54 yrs Sex: Female : 1965 Arrival Date: 10/21/2019 Time: 04:12 Bed 15 Private MD: Diagnosis: COPD Exacerbation Presentation: 10/21 04:25 Presenting complaint: Patient states: pt states she was discharged yesterday from here bb for COPD exacerbation and she is still having difficulty breathing pt state she will not wear a bipap. Transition of care: patient was not received from another setting of care. Onset of symptoms was October 20, 2019. Risk Assessment: Do you want to hurt yourself or someone else? Patient reports no desire to harm self or others. Initial Sepsis Screen: Does the patient meet any 2 criteria? No. Patient's initial sepsis screen is negative. Does the patient have a suspected source of infection? No. Patient's initial sepsis screen is negative. Care prior to arrival: None. 04:25 Method Of Arrival: Wheelchair bb 04:25 Acuity: SAL[place] 2 bb Triage Assessment: 04:30 Respiratory: Onset: The symptoms/episode began/occurred at an unknown time. the patient jd3 has moderate shortness of breath. 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 - Social history:: Smoking status: unknown. - Ebola Screening: : No symptoms or risks identified at this time. Screenin:07 Abuse screen: Denies threats or abuse. Nutritional screening: No deficits noted. jd3 Tuberculosis screening: No symptoms or risk factors identified. Fall Risk IV access (20 points). Ambulatory Aid- Crutches/Cane/Walker (15 pts). Gait- Weak (10 pts.). Mental Status- Oriented to own ability (0 pts). Total Turner Fall Scale indicates Low Risk Score (25-44 pts). Fall prevention measures have been instituted. Side Rails Up X 2 Placed close to Nursing Station Frequent Obs/Assesments occuring Family Present and informed to notify staff if they need to leave bedside. Assessment: 04:25 General: Appears in no apparent distress. uncomfortable, Behavior is calm, cooperative, jd3 appropriate for age. Pain: Complains of pain in head Quality of pain is described as aching. Neuro: Level of Consciousness is awake, alert, obeys commands, Oriented to person, place, time, situation, Reports headache. Cardiovascular: Heart tones S1 S2 present Capillary refill < 3 seconds Patient's skin is warm and dry. Rhythm is sinus tachycardia. Respiratory: Reports shortness of breath Airway is patent Respiratory effort is labored, shallow, Respiratory pattern is symmetrical, tachypnea Breath sounds are diminished bilaterally. Breath sounds with wheezes bilaterally. GI: No signs and/or symptoms were reported involving the gastrointestinal system. : No signs and/or symptoms were reported regarding the genitourinary system. EENT: No signs and/or symptoms were reported regarding the EENT system. Derm: Skin is intact, Skin is dry, Skin is normal, Skin temperature is warm. Musculoskeletal: Circulation, motion, and sensation intact. Range of motion: intact in all extremities. 04:45 Reassessment: Patient appears in no apparent distress at this time. Patient and/or jd3 family updated on plan of care and expected duration. Pain level reassessed. pt reporting oxygen is helping her breath, pt appears less labored. pt appears more comfortable in bed. pt with tachypneic respirations. A\T\O X 4. 06:26 Reassessment: Patient appears in no apparent distress at this time. No changes from jd3 previously documented assessment. Patient and/or family updated on plan of care and expected duration. Pain level reassessed. pt reporting continued headache and new nausea. Vital Signs: 04:29 BP 159 / 111; Pulse 112; Resp 20 S; Temp 98.2(O); Pulse Ox 76% on R/A; bb 04:32 Weight 69.85 kg (R); bb 05:06 BP 159 / 107; Pulse 97; Resp 24 S; Pulse Ox 95% on 4 lpm NC; jd3 06:27 BP 123 / 76; Pulse 108; Resp 22 S; Pulse Ox 95% on 3 lpm NC; jd3 ED Course: 04:12 Patient arrived in ED. ds1 04:16 Yg White MD is Attending Physician. kdr 04:25 Damian Baeza, RN is Primary Nurse. jd3 04:27 Triage completed. bb 04:29 Arm band placed on Patient placed in an exam room, on a stretcher, on oxygen, on pulse bb oximetry. 04:52 XRAY Chest (1 view) In Process Unspecified. EDMS 05:07 Inserted saline lock: 24 gauge in right forearm, using aseptic technique. ea 05:38 Primary Nurse role handed off by Damian Baeza, RN bb 05:38 Damian Baeza RN is Primary Nurse. bb 05:57 Schuyler Arora MD is Hospitalizing Provider. kdr 06:26 Patient has correct armband on for positive identification. Placed in gown. Bed in low jd3 position. Call light in reach. Side rails up X 1. Adult w/ patient. 06:28 No provider procedures requiring assistance completed. Patient admitted, IV remains in jd3 place. 07:34 Primary Nurse role handed off by Damian Baeza RN bd 07:41 Kimberly Calderon, HUMAIRA is Primary Nurse. sv Administered Medications: 04:50 Drug: Albuterol - atroVENT (3:1) (2.5 mg - 0.5 mg) 3 ml Route: Nebulizer; ca1 05:50 Follow up: Response: No adverse reaction jd3 04:55 Drug: predniSONE 60 mg Route: PO; ca1 05:50 Follow up: Response: No adverse reaction jd3 05:29 Drug: Tylenol 650 mg Route: PO; jd3 06:25 Follow up: Response: No adverse reaction jd3 06:30 Drug: Motrin 600 mg Route: PO; jd3 07:10 Follow up: Response: No adverse reaction; No change in condition sv 06:30 Drug: Zofran 4 mg Route: IVP; Site: right forearm; jd3 07:10 Follow up: Response: No adverse reaction; No change in condition sv 07:37 CANCELLED (Physician Discretion): morphine 2 mg IVP once; (PAIN>8) RASS on ADMN: sv Combtv4, Very Agttd3, Agttd2, Rstlss1, AlertClm0, Drwsy-1, LtSdtn-2, ModSdtn-3, DpSdtn-4, UnArsble-5 x2 Outcome: 05:57 Decision to Hospitalize by Provider. kdr 07:11 Admitted to ER Hold. Please see [facility] for further documentation. sv 07:11 Condition: stable 07:11 Instructed on the need for admit. 15:07 Patient left the ED. iw Signatures: Dispatcher [employer] EDMS Mirna Us Stephanie, RN RN sv Yg White MD MD kdr Roger, Aubrie ds1 Angela Voss RN RN Peyton Byrne RN RN iw Celine Huerta RN RN ea Davies, Jonathon, RN RN jd3 Annmarie Luther RN RN ca1
--- NOTE | 2019-10-21 05:59 | EDPHYS ---
Physician Documentation [facility] Name: Samantha Smart Age: 54 yrs Sex: Female : 1965 Arrival Date: 10/21/2019 Time: 04:12 Bed 15 Private MD: ED Physician Yg White HPI: 10/21 07:18 This 54 yrs old Female presents to ER via Wheelchair with complaints of kdr Breathing Difficulty. 07:18 The patient has shortness of breath at rest, with light activity. Onset: The kdr symptoms/episode began/occurred gradually, yesterday. Duration: The symptoms are continuous, and are steadily getting worse. The patient's shortness of breath is aggravated by exertion, light activity, walking, is alleviated by rest. Associated signs and symptoms: Pertinent positives: chest pain, productive cough, dizziness, Pertinent negatives: diaphoresis, fever, hemoptysis, loss of consciousness, visual changes, vomiting. Severity of symptoms: At their worst the symptoms were moderate just prior to arrival, in the emergency department the symptoms are unchanged. The patient has experienced similar episodes in the past, chronically, but today's symptoms are worse, today's symptoms are similar. The patient has been recently seen at the [facility] Emergency Department, The patient has been recently been admitted at [facility], was discharged yesterday. 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 - Social history:: Smoking status: unknown. - Ebola Screening: : No symptoms or risks identified at this time. ROS: 07:18 Constitutional: Negative for fever, chills, and weight loss, Eyes: Negative for injury, kdr pain, redness, and discharge, ENT: Negative for injury, pain, and discharge, Neck: Negative for injury, pain, and swelling, Cardiovascular: Negative for chest pain, palpitations, and edema, Abdomen/GI: Negative for abdominal pain, nausea, vomiting, diarrhea, and constipation, Back: Negative for injury and pain, : Negative for injury, bleeding, discharge, and swelling, MS/Extremity: Negative for injury and deformity, Skin: Negative for injury, rash, and discoloration, Neuro: Negative for headache, weakness, numbness, tingling, and seizure activity. Psych: Negative for depression, anxiety, suicide ideation, homicidal ideation, and hallucinations, Allergy/Immunology: Negative for hives, rash, and allergies, Endocrine: Negative for neck swelling, polydipsia, polyuria, polyphagia, and marked weight changes, Hematologic/Lymphatic: Negative for swollen nodes, abnormal bleeding, and unusual bruising. 07:18 Respiratory: Positive for cough, "sounds productive", dyspnea on exertion, shortness of breath, wheezing, Negative for hemoptysis, orthopnea. Exam: 07:18 Constitutional: This is a well developed, well nourished patient who is awake, alert, kdr and in no acute distress. Head/Face: Normocephalic, atraumatic. Eyes: Pupils equal round and reactive to light, extra-ocular motions intact. Lids and lashes normal. Conjunctiva and sclera are non-icteric and not injected. Cornea within normal limits. Periorbital areas with no swelling, redness, or edema. Neck: Trachea midline, no thyromegaly or masses palpated, and no cervical lymphadenopathy. Supple, full range of motion without nuchal rigidity, or vertebral point tenderness. No Meningismus. Chest/axilla: Normal chest wall appearance and motion. Nontender with no deformity. No lesions are appreciated. Cardiovascular: Regular rate and rhythm with a normal S1 and S2. No gallops, murmurs, or rubs. Normal PMI, no JVD. No pulse deficits. Abdomen/GI: Soft, non-tender, with normal bowel sounds. No distension or tympany. No guarding or rebound. No evidence of tenderness throughout. Back: No spinal tenderness. No costovertebral tenderness. Full range of motion. Skin: Warm, dry with normal turgor. Normal color with no rashes, no lesions, and no evidence of cellulitis. MS/ Extremity: Pulses equal, no cyanosis. Neurovascular intact. Full, normal range of motion. Neuro: Awake and alert, GCS 15, oriented to person, place, time, and situation. Cranial nerves II-XII grossly intact. Motor strength 5/5 in all extremities. Sensory grossly intact. Cerebellar exam normal. Normal gait. Psych: Awake, alert, with orientation to person, place and time. Behavior, mood, and affect are within normal limits. 07:18 Respiratory: mild respiratory distress is noted, Respirations: labored breathing, that is mild, Breath sounds: rales, that are mild, stridor, is not appreciated, + upper airway congestion. wheezing: that is moderate, is heard diffusely. Vital Signs: 04:29 BP 159 / 111; Pulse 112; Resp 20 S; Temp 98.2(O); Pulse Ox 76% on R/A; bb 04:32 Weight 69.85 kg (R); bb 05:06 BP 159 / 107; Pulse 97; Resp 24 S; Pulse Ox 95% on 4 lpm NC; jd3 06:27 BP 123 / 76; Pulse 108; Resp 22 S; Pulse Ox 95% on 3 lpm NC; jd3 MDM: 05:57 Patient medically screened. kdr 07:18 Data reviewed: vital signs, nurses notes, lab test result(s), radiologic studies. kdr Counseling: I had a detailed discussion with the patient and/or guardian regarding: the historical points, exam findings, and any diagnostic results supporting the discharge/admit diagnosis, lab results, radiology results, the need for outpatient follow up. 10/21 04:16 Order name: Basic Metabolic Panel; Complete Time: 05:56 kdr 10/21 04:16 Order name: CBC with Diff; Complete Time: 07:30 kdr 10/21 04:16 Order name: LFT's; Complete Time: 05:56 kdr 10/21 04:16 Order name: Magnesium; Complete Time: 05:56 kdr 10/21 04:16 Order name: NT PRO-BNP; Complete Time: 05:56 kdr 10/21 04:16 Order name: PT-INR; Complete Time: 05:56 kdr 10/21 04:16 Order name: Troponin (emerg Dept Use Only); Complete Time: 05:56 kdr 10/21 04:35 Order name: ABG; Complete Time: 05:56 bb 10/21 05:08 Order name: Manual Differential; Complete Time: 07:30 EDMS 10/21 06:58 Order name: CBC with Automated Diff EDMS 10/21 06:58 Order name: CBC with Automated Diff; Complete Time: 07:30 EDMS 10/21 06:58 Order name: Comprehensive Metabolic Panel EDMS 10/21 06:58 Order name: Comprehensive Metabolic Panel EDMS 10/21 06:58 Order name: Lactate EDMS 10/21 04:16 Order name: XRAY Chest (1 view); Complete Time: 07:30 kdr 10/21 06:58 Order name: Lactate; Complete Time: 07:30 EDMS 10/21 06:58 Order name: Lipid Profile EDMS 10/21 06:58 Order name: Lipid Profile EDMS 10/21 06:58 Order name: Magnesium EDMS 10/21 06:58 Order name: Magnesium EDMS 10/21 06:58 Order name: Phosphorus EDMS 10/21 06:58 Order name: Phosphorus EDMS 10/21 06:58 Order name: NT PRO-BNP EDMS 10/21 06:58 Order name: NT PRO-BNP EDMS 10/21 04:16 Order name: EKG; Complete Time: 04:18 kdr 10/21 04:16 Order name: Cardiac monitoring; Complete Time: 04:48 kdr 10/21 04:16 Order name: EKG - Nurse/Tech; Complete Time: 04:49 kdr 10/21 04:16 Order name: IV Saline Lock; Complete Time: 05:10 kdr 10/21 04:16 Order name: Labs collected and sent; Complete Time: 04:48 kdr 10/21 04:16 Order name: O2 Per Protocol; Complete Time: 04:48 kdr 10/21 04:16 Order name: O2 Sat Monitoring; Complete Time: 04:48 kdr 10/21 06:58 Order name: NPO EDMS Administered Medications: 04:50 Drug: Albuterol - atroVENT (3:1) (2.5 mg - 0.5 mg) 3 ml Route: Nebulizer; ca1 05:50 Follow up: Response: No adverse reaction jd3 04:55 Drug: predniSONE 60 mg Route: PO; ca1 05:50 Follow up: Response: No adverse reaction jd3 05:29 Drug: Tylenol 650 mg Route: PO; jd3 06:25 Follow up: Response: No adverse reaction jd3 06:30 Drug: Motrin 600 mg Route: PO; jd3 07:10 Follow up: Response: No adverse reaction; No change in condition sv 06:30 Drug: Zofran 4 mg Route: IVP; Site: right forearm; jd3 07:10 Follow up: Response: No adverse reaction; No change in condition sv 07:37 CANCELLED (Physician Discretion): morphine 2 mg IVP once; (PAIN>8) RASS on ADMN: sv Combtv4, Very Agttd3, Agttd2, Rstlss1, AlertClm0, Drwsy-1, LtSdtn-2, ModSdtn-3, DpSdtn-4, UnArsble-5 x2 Disposition: 10/21/19 05:57 Hospitalization ordered by Schuyler Arora for Inpatient Admission. Preliminary diagnosis is COPD Exacerbation. - Bed requested for Telemetry/MedSurg (Inpatient). - Status is Inpatient Admission. iw - Condition is Fair. - Problem is an acute exacerbation. - Symptoms have improved. UTI on Admission? No Signatures: Dispatcher [employer] EDMS Mirna Us Martha RN RN Janna Gonzalez RN HUMAIRA dw Yg White MD MD kdr Ballard, Brenda, RN RN bb Williams, Irene RN Damian Freedman RN RN jd3 Acob, Cheryl RN Kimberly Cook RN sv Corrections: (The following items were deleted from the chart) 06:14 05:57 Hospitalization Ordered by Schuyler Arora MD for Inpatient Admission. Preliminary diagnosis is COPD Exacerbation. Bed requested for Telemetry/MedSurg (Inpatient). Status is Inpatient Admission. Condition is Fair. Problem is an acute exacerbation. Symptoms have improved. UTI on Admission? No. kdr 07:37 07:29 morphine 2 mg IVP once; (PAIN>8) RASS on ADMN: Combtv4, Very Agttd3, Agttd2, sv Rstlss1, AlertClm0, Drwsy-1, LtSdtn-2, ModSdtn-3, DpSdtn-4, UnArsble-5 x2 ordered. kdr 13:09 06:14 10/21/2019 05:57 Hospitalization Ordered by Schuyler Arora MD for Inpatient dw Admission. Preliminary diagnosis is COPD Exacerbation. Bed requested for [facility] ER HOLD. Status is Inpatient Admission. Condition is Fair. Problem is an acute exacerbation. Symptoms have improved. UTI on Admission? No. mw 13:09 13:10/21/2019 05:57 Hospitalization Ordered by Schuyler Arora MD for Inpatient bd Admission. Preliminary diagnosis is COPD Exacerbation. Bed requested for Telemetry/MedSurg (Inpatient). Status is Inpatient Admission. Condition is Fair. Problem is an acute exacerbation. Symptoms have improved. UTI on Admission? No. dw 15:07 13:10/21/2019 05:57 Hospitalization Ordered by Schuyler Arora MD for Inpatient iw Admission. Preliminary diagnosis is COPD Exacerbation. Bed requested for Telemetry/MedSurg (Inpatient). Status is Inpatient Admission. Condition is Fair. Problem is an acute exacerbation. Symptoms have improved. UTI on Admission? No. bd
[2019-10-21] MEDS ORDERED: IBUPROFEN 400 MG TAB ONE (06:21)
[2019-10-21] MEDS ORDERED: IBUPROFEN 200 MG TAB PO ONE (06:21)
[2019-10-21] MEDS ORDERED: ONDANSETRON 4 MG/2 ML VIAL ONE (06:24)
[2019-10-21 06:46] LABS: Blood Morphology Comment NOT SEEN (NOT SEEN); Platelet Estimate ADEQ
[2019-10-21] MEDS ORDERED: ONDANSETRON 4 MG/2 ML VIAL IV PRN (06:47)
[2019-10-21] MEDS ORDERED: MEPERIDINE HCL 25 MG/0.5 ML IV ONE (07:18)
[2019-10-21] MEDS ORDERED: ENOXAPARIN 40 MG/0.4 ML SQ ONE (07:27)
[2019-10-21] MEDS ORDERED: NA CHLORIDE 0.9% 1,000 ML ONE (07:27)
[2019-10-21] MEDS ORDERED: MEPERIDINE HCL 25 MG/0.5 ML ONE (07:27)
[2019-10-21] MEDS ORDERED: OSELTAMIVIR 75 MG CAP ONE (07:27)
[2019-10-21] MEDS: ENOXAPARIN 40 MG/0.4 ML SQ SCH (07:40)
[2019-10-21] MEDS: NA CHLORIDE 0.9% 1,000 ML IV SCH ×2 (07:40→15:41)
[2019-10-21] MEDS ORDERED: PROMETHAZINE INJ 25 MG/ML AMP IV PRN (07:47)
[2019-10-21] MEDS ORDERED: PROMETHAZINE INJ 25 MG/ML AMP ONE (07:48)
[2019-10-21] MEDS: predniSONE 20 MG TAB PO SCH ×2 (07:50→20:04)
[2019-10-21] MEDS ORDERED: ARFORMOTEROL TARTRATE 15 MCG/2 ML VIAL.NEB NEB SCH (08:00)
[2019-10-21 08:12] VITALS: BMI 28.1
--- NOTE | 2019-10-21 08:26 | RAD REPORT ---
EXAM DESCRIPTION: RAD - Chest Single View - 10/21/2019 5:13 am CLINICAL HISTORY: Shortness of breath COMPARISON: October 19, 2019 TECHNIQUE: AP portable chest image was obtained 0451 hours . FINDINGS: No peripheral mass or consolidation. Flattened diaphragm and fibrotic lung pattern is stab le. No acute findings superimposed on the known COPD. Heart and vasculature are normal. No measurable pleural effusion and no pneumothorax. No acute bony abnormality seen. No acute aortic findings suspe cted. IMPRESSION: No acute cardiopulmonary process. Underlying COPD changes match comparison.
[2019-10-21] MEDS: OSELTAMIVIR 75 MG CAP PO SCH ×2 (09:00→20:04)
[2019-10-21] MEDS: ACETAMINOPHEN 500 MG TAB PO PRN (15:33)
[2019-10-21] MEDS: IPRATROPIUM BROM 0.5MG/2.5ML NEB PRN (20:30)
[2019-10-21] MEDS: FORMOTEROL FUMARATE 20 MCG/2 ML VIAL.NEB IH SCH (20:30)
[2019-10-21] MEDS: ALBUTEROL 2.5 MG/3 ML NEB SOL NEB PRN (20:30)
[2019-10-22] MEDS: NA CHLORIDE 0.9% 1,000 ML IV SCH ×2 (05:13→17:36)
[2019-10-22 06:33] LABS: Absolute Lymphocytes (CBC) 1.5 K/uL (0.7-4.9); Basophils % 0.5 % (0-1.3); Hematocrit 43.1 % (36.0-45.0); Lymphocytes % 20.2 % (15.3-44.8); MPV 10.2 fL (7.6-11.3)
[2019-10-22] MEDS: FORMOTEROL FUMARATE 20 MCG/2 ML VIAL.NEB IH SCH ×2 (07:59→20:25)
[2019-10-22] MEDS: ALBUTEROL 2.5 MG/3 ML NEB SOL NEB PRN ×2 (07:59→20:25)
[2019-10-22] MEDS: IPRATROPIUM BROM 0.5MG/2.5ML NEB PRN ×2 (07:59→20:25)
--- NOTE | 2019-10-22 08:26 | P.HP ---
Certification for Inpatient Patient admitted to: Observation With expected LOS: <2 Midnights Patient will require the following post-hospital care: None Practitioner: I am a practitioner with admitting privileges, knowledge of patient current condition, hospital course, and medical plan of care. Services: Services provided to patient in accordance with Admission requirements found in Title 42 Section 412.3 of the Code of Federal Regulations Patient History Date of Service: 10/21/19 Reason for admission: Respiratory distress History of Present Illness: Patient is a 54-year-old female came to the hospital with shortness of breath. Patient has been recently discharged from the hospital after being treated for COPD exacerbation. Patient is clinically feeling much worse. Patient decided to come into the ER for further evaluation. In the emergency room patient was found have hypercapnic respiratory distress with slight leukocytosis and prerenal azotemia. Patient be admitted to the hospital for observation. Allergies iodine Allergy (Verified 10/15/18 17:54) Unknown levofloxacin [From Levaquin] Allergy (Verified 10/18/19 22:42) Itching/Hives/Rash Sulfa (Sulfonamide Antibiotics) Allergy (Verified 10/15/18 17:54) Unknown band-aid Allergy (Uncoded 10/15/18 17:54) Rash Home Medications: Albuterol Neb [Proventil 0.083% Neb Soln] 2.5 mg IH Q6HP PRN 10/18/19 Albuterol Sulfate [Proair Hfa] 1 puff IH PRN PRN 10/18/19 Fluticasone/Salmeterol [Advair 250-50 Diskus] 2 puff IH BID 10/18/19 Fluticasone/Salmeterol [Advair 250-50 Diskus] 1 each IH DAILY 10/21/19 predniSONE [Prednisone] 20 mg PO DAILY 10/21/19 - Past Medical/Surgical History Diabetic: No -: COPD -: Chronic steroid use -: Chronic pain -: Tobacco abuse -: Hysterectomy -: Appendectomy -: Tonsillectomy Psychosocial/ Personal History: The patient is single. She has 3 children. - Family History Father Medical History: Heart disease, Lung disease, Kidney disease Notes: of asbestosis Mother Medical History: Heart disease Notes: of cardiac arrest - Social History Smoking Status: Current every day smoker Alcohol use: No CD- Drugs: No Caffeine use: Yes Place of Residence: Home Review of Systems 10-point ROS is otherwise unremarkable Physical Examination - Vital Signs Temperature: 96.7 F Blood Pressure: 112/76 Pulse: 67 Respirations: 16 Pulse Ox (%): 97 - Physical Exam General: Alert, In no apparent distress, Oriented x3 HEENT: Atraumatic, PERRLA, Mucous membr. moist/pink, EOMI, Sclerae nonicteric Neck: Supple, 2+ carotid pulse no bruit, No LAD, Without JVD or thyroid abnormality Respiratory: Diminished, Expiratory wheezes, Rhonchi/gurgles Cardiovascular: Regular rate/rhythm, Normal S1 S2, No murmurs Gastrointestinal: Normal bowel sounds, Soft and benign, Non-distended, No tenderness Musculoskeletal: No clubbing, No swelling, No tenderness Integumentary: No rashes Neurological: Normal gait, Normal speech, Normal strength at 5/5 x4 extr, Normal tone, Sensation intact, Cranial nerves 3-12 intact, Normal affect Lymphatics: No axilla or inguinal lymphadenopathy Assessment & Plan - Problems (Diagnosis) (1) Hypercapnic respiratory failure Current Visit: Yes Status: Acute (2) Acute renal insufficiency Onset Date: 06/19/17 Current Visit: No Status: Acute (3) COPD with acute exacerbation Onset Date: 01/21/17 Current Visit: No Status: Acute (4) Dehydration Onset Date: 06/19/17 Current Visit: No Status: Acute (5) Pneumonia Onset Date: 01/21/17 Current Visit: No Status: Acute (6) Chronic pain Onset Date: 06/19/17 Current Visit: No Status: Chronic Qualifiers: (7) Chronic steroid use Onset Date: 06/19/17 Current Visit: No Status: Chronic (8) Tobacco abuse Onset Date: 06/19/17 Current Visit: No Status: Chronic - Plan 1. Continue with IV antibiotics 2. Continue with nebs as needed 3. O2 per protocol 4. Continue with gentle hydration 5. Continue with IV steroids 6. Monitor labs closely 7. GI and DVT prophylaxis Discharge Plan: Home Plan to discharge in: 48 Hours - Advance Directives Does patient have a Living Will: No Does patient have a Durable POA for Healthcare: No - Code Status/Comfort Care Code Status Assessed: Yes Code Status: Full Code Critical Care: No Time Spent Managing PTS Care (In Minutes): 40
[2019-10-22] MEDS: ENOXAPARIN 40 MG/0.4 ML SQ SCH (09:33)
[2019-10-22] MEDS: OSELTAMIVIR 75 MG CAP PO SCH ×2 (09:33→20:10)
[2019-10-22] MEDS: ACETAMINOPHEN 500 MG TAB PO PRN (09:33)
[2019-10-22] MEDS: predniSONE 20 MG TAB PO SCH ×2 (09:33→20:10)
[2019-10-22 10:31] LABS: Albumin 2.7 g/dL (3.4-5.0); Bilirubin Total 0.3 mg/dL (0.2-1.0); Magnesium 2.4 mg/dL (1.8-2.4)
[2019-10-22] MEDS ORDERED: SODIUM CHLORIDE 0.9% 10ML INJ IV PRN (10:55)
--- NOTE | 2019-10-22 12:53 | RAD REPORT ---
EXAM DESCRIPTION: Oma[facility] Single View10/22/2019 12:25 pm CLINICAL HISTORY: Shortness of breath COMPARISON: October 21, 2019 FINDINGS: The lungs are hyperaerated The lungs appear clear of acute infiltrate. The heart is normal size IMPRESSION: No acute abnormalities displayed
--- NOTE | 2019-10-22 15:51 | P.PN ---
Subjective Date of Service: 10/22/19 Primary Care Provider: PCP Chief Complaint: Respiratory distress Subjective: Improving The patient stated that she is feeling better today. Still mildly short of breath. I was able to tolerate physical therapy today with minimal problems. Otherwise without any other acute complaint at this time. Review of Systems General: Unremarkable Eyes: Unremarkable ENT: Unremarkable Respiratory: Wheezing Cardiovascular: Unremarkable Gastrointestinal: Unremarkable Genitourinary: Unremarkable Musculoskeletal: Unremarkable Integumentary: Unremarkable Neurological: Unremarkable Lymphatics: Unremarkable Physical Examination - Vital Signs Temperature: 98.2 F Blood Pressure: 130/78 Pulse: 80 Respirations: 16 Pulse Ox (%): 95 - Physical Exam General: Alert, In no apparent distress, Oriented x3 HEENT: Normocephalic, PERRLA, Mucous membr. moist/pink, EOMI Neck: Supple, 2+ carotid pulse no bruit, JVD not distended, No Thyromegaly, No LAD Respiratory: Normal air movement, Expiratory wheezes (bilaterally ) Cardiovascular: No edema, Normal pulses, Regular rate/rhythm, Normal S1 S2, No gallops, No rubs, No murmurs Capillary refill: <2 Seconds Gastrointestinal: Normal bowel sounds, Soft and benign, Non-distended, No ascites, No tenderness, No masses, No rebound, No guarding Musculoskeletal: No clubbing, No swelling, No contractures, No erythema, No tenderness, No warmth Integumentary: No rashes, No breakdown, No significant lesion, No tenderness/ swelling, No erythema, No warmth, No cyanosis Neurological: Normal gait, Normal speech, Normal strength at 5/5 x4 extr, Normal tone, Sensation intact, Cranial nerves 3-12 intact, Normal reflexes 2+, Normal affect Lymphatics: No axilla or inguinal lymphadenopathy - Studies Laboratory Data (last 24 hrs) 10/22/19 09:44: Sodium 140, Potassium 5.0, BUN 25 H, Creatinine 0.85, Glucose 85 , Phosphorus 3.0, Magnesium 2.4, Total Bilirubin 0.3, AST 61 H, ALT 54, Alkaline Phosphatase 74, Triglycerides 184 H, Cholesterol 239 H, HDL Cholesterol 74 H, Cholesterol/HDL Ratio 3.23 10/22/19 05:14: WBC 7.7 D, Hgb 13.9, Hct 43.1, Plt Count 113 L Medications List Reviewed: Yes Assessment And Plan - Current Problems (Diagnosis) (1) Hypercapnic respiratory failure Current Visit: Yes Status: Acute (2) COPD with acute exacerbation Onset Date: 01/21/17 Current Visit: No Status: Acute (3) Influenzal bronchitis Current Visit: No Status: Acute - Plan Patient overall is doing better today. Labs are normalizing. Patient was able to tolerate physical therapy today with minimal increase in respiratory effort. Feels almost baseline at this point. Patient still had bilateral wheezing but not nearly as extensive as the last couple of days. After talking with family and patient today we believe patient will be able to go home some point tomorrow on continued home oxygen as she is already been set up for this at home. Repeat chest x-ray today shows no acute pulmonary process. Patient finished Tamiflu today and will be discontinued. For now operation will continue breathing treatments and will stay on oxygen. Plan is to discharge tomorrow sometime. Plan to discharge in: 24 Hours Critical Care: No Time Spent Managing PTS Care (In Minutes): 30
[2019-10-23] MEDS: NA CHLORIDE 0.9% 1,000 ML IV SCH (06:06)
[2019-10-23] MEDS: IPRATROPIUM BROM 0.5MG/2.5ML NEB PRN (08:24)
[2019-10-23] MEDS: FORMOTEROL FUMARATE 20 MCG/2 ML VIAL.NEB IH SCH (08:24)
[2019-10-23] MEDS: ALBUTEROL 2.5 MG/3 ML NEB SOL NEB PRN (08:24)
[2019-10-23] MEDS: OSELTAMIVIR 75 MG CAP PO SCH (09:00)
[2019-10-23] MEDS ORDERED: PANTOPRAZOLE 40 MG INJ IVP SCH ×2 (09:00→12:58)
[2019-10-23] MEDS: ENOXAPARIN 40 MG/0.4 ML SQ SCH (09:17)
[2019-10-23] MEDS: predniSONE 20 MG TAB PO SCH (09:18)
[2019-10-23 10:16] VITALS: O2SAT 93
[2019-10-23 12:38] VITALS: BP 165/95; TEMP 97.6
[2019-10-23] MEDS ORDERED: SODIUM CHLORIDE 0.9% 10ML INJ IV PRN (12:58)
[2019-10-23] MEDS ORDERED: MAGNES/ALUMIN/SIMET 30ML UCUP PO SCH (13:00)
--- NOTE | 2019-10-23 13:04 | P.CNS ---
Date of Consult: 10/23/19 Primary Care Provider: PCP Chief Complaint: Respiratory distress and abdominal discomfort History of Present Illness: Patient is 54 years of age well known to me with severe COPD admitted with worsening abdominal discomfort predominantly severe nausea and vomiting after eating been going on for the past 2 weeks denies any fever chills diarrhea or constipation complains of severe heartburn in addition patient a does take nonsteroidals at home as been having headaches for the past 2 weeks has slightly more shortness of breath she is on chronic prednisone treatment Allergies iodine Allergy (Verified 10/15/18 17:54) Unknown levofloxacin [From Levaquin] Allergy (Verified 10/18/19 22:42) Itching/Hives/Rash Sulfa (Sulfonamide Antibiotics) Allergy (Verified 10/15/18 17:54) Unknown band-aid Allergy (Uncoded 10/15/18 17:54) Rash Home Medications: Albuterol Neb [Proventil 0.083% Neb Soln] 2.5 mg IH Q6HP PRN 10/18/19 Albuterol Sulfate [Proair Hfa] 1 puff IH PRN PRN 10/18/19 Fluticasone/Salmeterol [Advair 250-50 Diskus] 2 puff IH BID 10/18/19 Fluticasone/Salmeterol [Advair 250-50 Diskus] 1 each IH DAILY 10/21/19 predniSONE [Prednisone] 20 mg PO DAILY 10/21/19 - Past Medical/Surgical History Diabetic: No -: COPD -: Chronic steroid use -: Chronic pain -: Tobacco abuse -: Hysterectomy -: Appendectomy -: Tonsillectomy Psychosocial/ Personal History: The patient is single. She has 3 children. - Family History Father Medical History: Heart disease, Lung disease, Kidney disease Notes: of asbestosis Mother Medical History: Heart disease Notes: of cardiac arrest - Social History Smoking Status: Unknown if ever smoked Alcohol use: No CD- Drugs: No Caffeine use: Yes Place of Residence: Home Review of Systems General: Weakness Respiratory: Shortness of Breath Gastrointestinal: Nausea Neurological: As per HPI Physical Examination Temp Pulse Resp BP Pulse Ox 97.6 F 80 20 165/95 H 95 10/23/19 12:00 10/23/19 12:00 10/23/19 12:00 10/23/19 12:00 10/23/19 12:00 General: Alert HEENT: Atraumatic Neck: Supple Respiratory: Clear to auscultation bilaterally Cardiovascular: No edema, Regular rate/rhythm Gastrointestinal: Normal bowel sounds, Soft and benign - Problems (1) Nausea & vomiting Current Visit: Yes Status: Acute Plan: Patient is 54 years of age complaining of severe nausea vomiting after eating going on for the past 2 weeks he complains of severe guard takes nonsteroidals and steroids also has some headaches I have added IV pantoprazole in addition to Maalox DT of the abdomen (2) COPD (chronic obstructive pulmonary disease) Onset Date: 06/19/17 Current Visit: No Status: Acute Plan: Patient has a severe terminal COPD frequent exacerbations maximum bronchodilator therapy at home intolerant to Dalresp tried her on different types of bronchodilators frequent exacerbations chronically hypoxic hypercapnic vital signs stable no evidence of sepsis Qualifiers: COPD type: COPD with acute exacerbation Qualified Code(s): J44.1 - Chronic obstructive pulmonary disease with (acute) exacerbation
--- NOTE | 2019-10-23 14:47 | RAD REPORT ---
EXAM DESCRIPTION: CT - Abdomen Pelvis W Contrast - 10/23/2019 2:27 pm CLINICAL HISTORY: Severe nausea vomiting, prior hysterectomy and appendectomy COMPARISON: No comparisons TECHNIQUE: Biphasic, helical CT imaging of the abdomen and pelvis was performed following 100 ml non -ionic IV contrast. Oral contrast was given. All CT scans are performed using dose optimization technique as appropriate and may include automated exposure control or mA/KV adjustment according to patient size. FINDINGS: A 12 millimeter sessile pleural abutting mass is present posterior right lung base. No chloe or imaging at establish a long-term stability. This may simply be a focus of scarring or atelectasis. Given the patient's age, mass is not excluded and warrants ongoing follow-up. CT re-evaluation in 4- 6 months could be performed. The mass would not likely be evident on plain film. No pericardial thickening or effusion. The liver, spleen, and pancreas show no suspicious findings. Gallbladder and biliary tree are also wi thout suspicious finding. Symmetric renal function is seen with no hydronephrosis or suspicious renal mass. No pyelonephritis o r acute parenchymal process. No bladder abnormalities. No adrenal abnormalities. Uterus is absent. Ov john are absent or atrophic. No ovarian or adnexal finding seen. Stomach is decompressed. No gastric wall thickening or mass evident. No dilated large or small bowel. Moderate stool volume seen in the colon. No acute colon process seen. No free air, pneumatosis or focal inflammatory stranding. Trace free fluid in the dependent portion of the pelvis. No hernia, mass or bulky lymphadenopathy. No suspicious bony findings. No acute vascular finding. Punctate air densities in the subcu fat of th e abdomen believed to be medication injections. IMPRESSION: Contrast enhanced CT abdomen and pelvis showing no acute or emergent finding finding. Patient does have a 12 millimeter sessile pleural abutting mass density posterior right lung base war ranting ongoing evaluation. This could be scarring or atelectasis but needs re-evaluation in 4-6 sandra hs to assure no persistent mass or growth.
[2019-10-23] MEDS ORDERED: ARFORMOTEROL TARTRATE 15 MCG/2 ML VIAL.NEB IH SCH (20:00)
[2019-10-23] MEDS ORDERED: predniSONE 10 MG TAB PO SCH (21:00)
--- NOTE | 2019-10-27 16:47 | EKG ---
Test Date: 2018-10-21 Test Time: 04:39:39 Senior Advisory: FRANCHESCA MEASUREMENT RESULTS: Intervals: Rate: 94 DC: 142 QRSD: 54 QT: 334 QTc: 417 [place]: P: 84 DC: 142 QRS: 76 T: 77 INTERPRETIVE STATEMENTS: Normal sinus rhythm Low voltage QRS Septal infarct, age undetermined Abnormal ECG Cardioserver Error - Incorrect date on EKG This EKG was performed on 10-21-2019 Compared to ECG 10/15/2018 10:23:54 Low QRS voltage now present Sinus tachycardia no longer present Myocardial infarct finding still present Electronically Signed On 10-27-19 16:41:58 [employer] by Ever Collins
== END 2019-10-23 17:06 | disposition home or self-care (01) | DRG 189 ==
LOC: ER 04:12 → ERHOLD 06:58 → 4TH 14:36 → OBSVTOIN 10-22 14:52
PROVIDERS: ADMIT Hospitalist; ATTEND Family Medicine
DX: J96.02 Acute respiratory failure with hypercapnia (principal); J44.1 Chronic obstructive pulmonary disease with (acute) exacerbation; J44.0 Chronic obstructive pulmonary disease with (acute) lower respiratory infection; J11.1 Influenza due to unidentified influenza virus with other respiratory manifestations; J20.9 Acute bronchitis, unspecified; N28.9 Disorder of kidney and ureter, unspecified; F17.210 Nicotine dependence, cigarettes, uncomplicated; R11.2 Nausea with vomiting, unspecified; E86.0 Dehydration; Z79.52 Long term (current) use of systemic steroids
CPT/HCPCS: 36415; 71045; 74177; 80048; 80053; 80061; 80076; 82805; 83605; 83735; 83880; 84100; 84484; 85025; 85610; 93005; 94640; 94760; 96374; 97116; 97161; 97530; 99285; C9113; G0378; J1650; J2175; J2405; J2550; J7030; J7512; J7605; Q9967

== ENCOUNTER 2021-06-19 07:28 | Day surgery (SDC) | payer OTHER ==
[2021-06-19] MEDS ORDERED: Ringers Lactate 1,000 ML IV ONE (08:13)
[2021-06-19] MEDS ORDERED: LIDOCAINE 1% MPF 5 ML VIAL ONE (08:28)
[2021-06-19] MEDS ORDERED: propofoL 200 MG/20 ML VIAL IV ONE (08:28)
[2021-06-19] MEDS ORDERED: ONDANSETRON 4 MG/2 ML VIAL ONE (09:38)
--- NOTE | 2021-06-19 10:11 | OP ---
Surgeon: Tomas Andrade MD Procedure Performed: Esophagogastroduodenoscopy. Indication For Procedure: Dyspepsia, GERD, abdominal pain, dysphagia. Plan For Anesthesia: Monitored anesthesia care. Complexity: High due to the patient's comorbidities, particularly advanced COPD. Technique: After obtaining informed consent from the patient explaining risks and complications, whi ch include bleeding, infection, perforation, and anesthesia complications, the patient was placed in the left lateral position. Sedation was given. From then on, the scope was advanced to the mouth an d carefully guided up till the second portion of the duodenum. After the completion of examination, scope and equipment drawn and procedure terminated in a safe manner. Findings: Esophagus: A detailed examination was done from proximal to distal esophagus. There was absolutely no evidence of any esophageal stenosis. No evidence of a definite hiatal hernia. No esop hagitis or evidence of eosinophilic esophagitis. There did appear to be esophageal dysmotility. Bio psies were taken from the esophagus to rule out eosinophilic esophagitis. The GE junction was at shira und 36-37 cm. Stomach: Moderate striped erythema seen in the body and antrum. Biopsies taken. Duodenum: The bulb and second portion appeared normal. Complications: None. Tolerance To Anesthesia: Excellent. Postoperative Diagnosis: Gastritis. Plan: 1.Await pathology results. 2.Follow up with GI Clinic in 2 weeks. If dysphagia persists, may need a modified barium swallow ve rsus barium esophagogram if there does not seem to any benefit of any dilation. US/MODL Voice ID: [id number] Report ID: [id number]
[2021-06-19 11:37] VITALS: O2SAT 99
[2021-06-19 11:39] VITALS: BP 155/92; TEMP 97.5
== END 2021-06-19 10:05 | disposition home or self-care (01) ==
LOC: OR 07:28
PROVIDERS: ATTEND Internal Medicine Gastroenterology
PROC: 0DB68ZX Excision of Stomach, Via Natural or Artificial Opening Endoscopic, Diagnostic (ICD-10-PCS; 2021-06-19)
PROC: 0DB58ZX Excision of Esophagus, Via Natural or Artificial Opening Endoscopic, Diagnostic (ICD-10-PCS; principal; 2021-06-19 08:30)
DX: K29.50 Unspecified chronic gastritis without bleeding (principal); K30 Functional dyspepsia; R10.13 Epigastric pain; R06.02 Shortness of breath; R00.2 Palpitations; R52 Pain, unspecified; Z20.822 Contact with and (suspected) exposure to COVID-19
CPT/HCPCS: 88312; 88305; 43239; U0003; J2704; J7120; J2405

== ENCOUNTER 2021-06-20 07:02 | Day surgery (SDC) | payer OTHER ==
[2021-06-20] MEDS ORDERED: Ringers Lactate 1,000 ML IV ONE (07:51)
[2021-06-20] MEDS ORDERED: LIDOCAINE 1% MPF 5 ML VIAL ONE (08:28)
[2021-06-20] MEDS ORDERED: propofoL 200 MG/20 ML VIAL IV ONE (08:28)
[2021-06-20] MEDS ORDERED: Phenylephrine HCl 10 MG/ML 1 ML VIAL ONE (09:11)
[2021-06-20] MEDS ORDERED: NS 0.9% VIAL 10 ML ONE (09:11)
[2021-06-20 09:27] VITALS: BP 115/75; TEMP 97.3; O2SAT 97
--- NOTE | 2021-06-20 17:26 | OP ---
Surgeon: Tomas Andrade MD Procedure Performed: Colonoscopy. Indication For Procedure: Screening. Plan For Anesthesia: Monitored anesthesia care. Complexity: High due to the patient's significant COPD. Technique: After obtaining informed consent from the patient explaining risks and complications, whi ch include, but are not limited to bleeding, infection, perforation, and anesthesia complication, the patient was placed in the left lateral position and sedation was given. From then on, a digital rec mack exam was performed and scope inserted into the rectum with some difficulty due to prep was guided to the cecum. The cecum was identified by the ileocecal valve and appendiceal orifice. Then, the s cope was withdrawn while examining the mucosa. Scope withdrawal time was 10 minutes. Quality of pre p was very poor with very limited visualization of the colon. This appears to corroborate the fact t hat the patient stated that she was not able to bring almost all of the prep. Findings: No gross obstructive lesions seen in the entire colon and this is the only finding I am ab le to assess for. Impression: Poor prep. Complications: None. Tolerance To Anesthesia: Excellent. Plan: We will need to repeat colonoscopy with a better prep. Maybe try MiraLAX prep as the patient was not able to tolerate Suprep in the next 1-3 months. US/ESHAL Voice ID: [id number] Report ID: [id number]
== END 2021-06-20 09:24 | disposition home or self-care (01) ==
LOC: OR 07:02
PROVIDERS: ATTEND Internal Medicine Gastroenterology
PROC: 0DJD8ZZ Inspection of Lower Intestinal Tract, Via Natural or Artificial Opening Endoscopic (ICD-10-PCS; principal; 2021-06-20 08:00)
DX: R10.32 Left lower quadrant pain (principal); R12 Heartburn; J44.9 Chronic obstructive pulmonary disease, unspecified; R63.5 Abnormal weight gain; R06.02 Shortness of breath; R00.2 Palpitations; E66.3 Overweight; Z99.81 Dependence on supplemental oxygen; Z80.0 Family history of malignant neoplasm of digestive organs
CPT/HCPCS: 45378; J2704; J2370; J7120

== ENCOUNTER 2021-08-14 07:06 | Day surgery (SDC) | payer OTHER ==
[2021-08-14] MEDS ORDERED: Ringers Lactate 1,000 ML IV ONE (07:50)
[2021-08-14] MEDS ORDERED: ALBUTEROL 2.5 MG/3 ML NEB SOL ONE (08:41)
[2021-08-14] MEDS ORDERED: LIDOCAINE 1% MPF 5 ML VIAL ONE (08:59)
[2021-08-14] MEDS ORDERED: propofoL 200 MG/20 ML VIAL IV ONE (08:59)
[2021-08-14 10:00] VITALS: BP 112/73; TEMP 98.8; O2SAT 98
--- NOTE | 2021-08-14 11:07 | OP ---
Surgeon: Tomas Andrade MD Procedure Performed: Colonoscopy. Indication For Procedure: Abdominal pain, poor prep on last colonoscopy. Plan For Anesthesia: Monitored anesthesia care. Complexity: Average. Technique: After obtaining informed consent from the patient and explaining risks and complications, which include, but are not limited to bleeding, infection, perforation, and anesthesia complication, the patient was placed in left lateral position and sedation was given. From then on, the scope was advanced into the rectum and carefully guided up till the cecum. After the procedure, scope and equ ipment were withdrawn and procedure terminated in a safe manner. After the cecum was reached, the ce cum was identified by the appendiceal orifice and ileocecal valve. The scope was gradually withdrawn while carefully examining the mucosa. Scope withdrawal time was 12 minutes. Quality of prep was se gmental poor. Findings: In the cecum, two 4-5 mm polyps were visualized. These were removed by hot biopsy polypec donovan. In the transverse colon, 2 polyps from 3-6 mm in size were seen and these were removed with ho t biopsy polypectomy. No other gross obstructing lesions seen, but the prep was limiting. Retroflex ion revealed grade 1-2 internal hemorrhoids. Complications: None. Tolerance To Anesthesia: Excellent. Postoperative Diagnosis: Polyps, poor prep. Plan: 1.Await pathology results. 2.Repeat colonoscopy in 1-2 years due to limited prep. 3.Follow up in the GI clinic in 2 weeks. US/MODL Voice ID: [id number] Report ID: [id number]
== END 2021-08-14 09:45 | disposition home or self-care (01) ==
LOC: OR 07:06
PROVIDERS: ATTEND Internal Medicine Gastroenterology
PROC: 0DBL8ZX Excision of Transverse Colon, Via Natural or Artificial Opening Endoscopic, Diagnostic (ICD-10-PCS; 2021-08-14)
PROC: 0DBH8ZX Excision of Cecum, Via Natural or Artificial Opening Endoscopic, Diagnostic (ICD-10-PCS; principal; 2021-08-14 08:30)
DX: D12.0 Benign neoplasm of cecum (principal); D12.3 Benign neoplasm of transverse colon; R12 Heartburn; K76.0 Fatty (change of) liver, not elsewhere classified; R79.89 Other specified abnormal findings of blood chemistry; Z20.822 Contact with and (suspected) exposure to COVID-19
CPT/HCPCS: 88305; 45384; U0003; J2704; J7120

== ENCOUNTER → 2024-01-12 | Emergency (ER) | payer OTHER ==
[~2024-01-12] MED LIST: ALBUTEROL 2.5 MG/3 ML NEB SOL ONE; FAMOTIDINE 20 MG/2 ML VIAL IV ONE; IPRATROPIUM BROM 0.5MG/2.5ML ONE; MAGNES/ALUMIN/SIMET 30ML UCUP ONE; METHYLPREDNISOLONE 125 MG INJ ONE
--- OUTSIDE RECORDS SUMMARY | 2024-01-12 01:42 | XMS REPORT | Continuity of Care Document ---
Author Name Unknown Address [address] [facility] [address] [place] [address] [facility] Address [address] [facility] [address] [place] [address] Support Name Relationship Address Phone Dolly Smart Personal Relationship [id number] [place] [address] Janey Smart Emergency Contact [facility] [address] [place] [phone] Dolly Smart Personal Relationship [id number] [place] [address] Janey Smart Jr Child [address] [place] [address] LEELA GARCIA Emergency Contact Unknown [phone] Yuliana Barrientos Mother Unknown Unavailable YULIANA BARRIENTOS M Unknown Unavailable MAXIMILIANO LLOYD E Unknown [phone] Janey Smart Jr Child [id number] [place] [address] MARK SMART E Unknown JANEY SMART E [address] [place] [address] Care Team Providers Care Rehab Aide Name Role Phone HERBER EDGAR Primary Care Physician UnavailHerber Vidal Attending Clinician Unavailable LOUIS ARORA Attending Clinician Unavailable HANNAH MENON Attending Clinician Unavailable Louis Arora MD Attending Clinician Lab, [facility] Attending Clinician Unavailable Hannah Menon MD Attending Clinician Lab, [facility] Db Attending Clinician Unavailable Michelle Briceno Attending Clinician [phone] MICHELLE BARAKAT Attending Clinician Unavailable BALDO CERVANTES Attending Clinician Unavailable BALDO CERVANTES Attending Clinician Unavailable KARIE PERKINS Attending Clinician Unavailable WILFRID MCALLISTER Attending Clinician Unavailable Wilfrid Mcallister DO Attending Clinician [phone] GEETHA RAINES Attending Clinician Unavailabl e Doctor Unassigned, [place] Attending Clinician U Arabella Kay MD Attending Clinician + [phone] ARABELLA GUIDRY Attending Clinician Unavailable Tatum Garcia MD Attending Clinician +[phone] STARLA VILLARREAL Attending Clinician Unavailable Natalia Delaney DO Attending Clinician [phone] Starla Villarreal DO Attending Clinician [phone] TATUM GARCIA Attending Clinician Unavailable Milo Conroy MD Attending Clinician [phone] Vinny Cook MD Attending Clinician [phone] VINNY COOK Attending Clinician Unavailable FILIPE LEMUS Attending Clinician Unavailable Filipe Lemus MD Attending Clinician [phone] Jarek Campbell MD Attending Clinician [phone] BARON GARCIA Attending Clinician Unavailable Baron Melton Attending Clinician [phone] JAREK CAMPBELL Attending Clinician UnavailEthel Catherine Attending Clinician [phone] Ethel PRICE Attending Clinician Unavailable NATALIA DELANEY Attending Clinician Unavailab MICHELLE Rudd Admitting Clinician Unavailable WILFRID MCALLISTER Admitting Clinician Unavailable LOUIS ARORA Admitting Clinician Unavailable STARLA VILLARREAL Admitting Clinician Unavailable Starla Villarreal DO Admitting Clinician [phone] TATUM GARCIA Admitting Clinician Unavailable FILIPE LEMUS Admitting Clinician Unavailable Payers Payer Name Policy Type Policy Number Effective Date Expirati on Date Source [facility] [id number] 2021 00:00:00 [id number] [facility] [employer] MEDICAID [id number] 2015 00:00:00 Problems Condition Name Condition Details Condition Category Status Onset Date Resolution Date Last Treatment Date Treating Clinician Comments Source Esophageal reflux Esophageal reflux Disease Active 3-07 00:00: 00 [facility] Hypothyroi dism due to Brian' s thyroiditi s Hypothyroi dism due to Brian' s thyroiditi s Disease Active 8- 00:00: 00 [facility] Vitamin D deficiency Vitamin D deficiency Disease Active 8- 00:00: 00 [facility] Osteopenia of multiple sites Osteopenia of multiple sites Disease Active 8- 00:00: 00 [facility] Abdominal pain, right lower quadrant Abdominal pain, right lower quadrant Disease Active 4-13 00:00: 00 [facility] Cholestati c liver disease Cholestati c liver disease Disease Active 2021-10 2-08 00:00: 00 [facility] 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 Disease Active 3-17 00:00: 00 [facility] Obesity (BMI 30-39.9) Obesity (BMI 30-39.9) Disease Active 3-12 00:00: 00 [facility] Cellulitis of hand Cellulitis of hand Disease Active 3-11 00:00: 00 [facility] Elevated INR Elevated INR Disease Active 2-25 00:00: 00 [facility] Chest pain Chest pain Disease Active 2-24 00:00: 00 [facility] COPD exacerbati on COPD exacerbati on Disease Active 2-24 00:00: 00 [facility] COVID-19 virus infection COVID-19 virus infection Disease Active 2-24 00:00: 00 [facility] Pericardia l effusion Pericardia l effusion Disease Active 2-24 00:00: 00 [facility] Stage 3a chronic kidney disease Stage 3a chronic kidney disease Disease Active 2-24 00:00: 00 [facility] Personal history of colonic polyps Personal history of colonic polyps Disease Active 2-17 00:00: 00 [facility] Cirrhosis of liver with ascites, 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, unspecifie d hepatic cirrhosis type Disease Active 2- 00:00: 00 [facility] Hepatic encephalop athy Hepatic encephalop athy Disease Active 12-07 00:00: 00 [facility] [id number] +5th digit eff 07/21/20*Ga stroesopha geal reflux disease with esophagiti s Problem Active [facility] [id number] Centrilobu lar emphysema Problem Active [facility] Hypothyroi dism Hypothyroi dism Problem Active [facility] Hyperlipid emia Hyperlipid emia Problem Active [facility] 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 [facility] IODINE DRUG INGREDI Active ITCHING 01-07 00:00: 00 [facility] LATEX DRUG INGREDI Active ITCHING 01-07 00:00: 00 [facility] Iodine Propensi ty to adverse reaction s Active Itching 01-07 00:00: 00 [facility] Latex Propensi ty to adverse reaction s Active Itching 01-07 00:00: 00 [facility] Social History Social Habit Start Date Stop Date Quantity Comments Source [facility] History of Tobacco Use [facility] Sex Assigned At [facility] Alcohol intake 2023-12-26 00:00:00 2023-12-26 00:00:00 Lifetime non-drinker (finding) [facility] History of Social function 2023-05-21 00:00:00 2023-05-21 00:00:00 [facility] Exposure to SARS-CoV-2 (event) 2023-01-21 00:00:00 2023-01-31 12:14:00 Not sure [facility] Tobacco use and exposure 2022-05-31 00:00:00 2022-05-31 00:00:00 Smokeless tobacco non-user [facility] Tobacco Comment 2022-05-31 00:00:00 2022-05-31 00:00:00 2020 [facility] Education - What is the highest level of school you have completed or the highest degree you have received? 2021-12-29 00:00:00 2021-12-29 00:00:00 7th grade [facility] Smoking Status Start Date Stop Date Source Ex-smoker 2022-05-31 00:00:00 2022-05-31 00:00:00 [facility] Medications Ordered Medication Name Filled Medication Name Start Date Stop Date Current Medication? Ordering Clinician Indication Dosage Frequency Signature (SIG) Comments Components Source TIROSINT 137 mcg Cap 12-18 00:00: 00 Yes [id number] 137ug Take 137 mcg by mouth in the morning. Brand name only [facility] risedronate 150 mg tablet 12-18 00:00: 00 Yes [id number] 150mg Take 1 tablet by mouth once every month. [facility] TIROSINT 137 mcg Cap 12-18 00:00: 00 Yes [id number] 137ug Take 137 mcg by mouth in the morning. Brand name only [facility] risedronate 150 mg tablet 12-18 00:00: 00 Yes [id number] 150mg Take 1 tablet by mouth once every month. [facility] TIROSINT 137 mcg Cap 12-18 00:00: 00 Yes [id number] 137ug Take 137 mcg by mouth in the morning. [facility] tablet 0 12-18 00:00: 00 Yes [id number] 150mg Take 1 tablet by mouth once every month. [facility] TIROSINT 137 mcg Cap 2023-0 12-18 00:00: 00 Yes [id number] 137ug Take 137 mcg by mouth in the morning. Brand name only [facility] risedronate 150 mg tablet 0 12-18 00:00: 00 Yes [id number] 150mg Take 1 tablet by mouth once every month. [facility] TIROSINT 137 mcg Cap 2023-0 12-18 00:00: 00 Yes [id number] 137ug Take 137 mcg by mouth in the morning. Brand name only [facility] risedronate 150 mg tablet 2023-0 12-18 00:00: 00 Yes [id number] 150mg Take 1 tablet by mouth once every month. [facility] TIROSINT 137 mcg Cap 2023-0 12-18 00:00: 00 Yes [id number] 137ug Take 137 mcg by mouth in the morning. Brand name only [facility] risedronate 150 mg tablet 0 12-18 00:00: 00 Yes [id number] 150mg Take 1 tablet by mouth once every month. [facility] TIROSINT 137 mcg Cap 2023-0 12-18 00:00: 00 Yes [id number] 137ug Take 137 mcg by mouth in the morning. Brand name only [facility] risedronate 150 mg tablet 0 12-18 00:00: 00 Yes [id number] 150mg Take 1 tablet by mouth once every month. [facility] TIROSINT 137 mcg Cap 2023-0 12-18 00:00: 00 Yes [id number] 137ug Take 137 mcg by mouth in the morning. Brand name only [facility] risedronate 150 mg tablet 2023-0 12-18 00:00: 00 Yes [id number] 150mg Take 1 tablet by mouth once every month. [facility] ergocalcife rol, vitamin d2, 1,250 mcg (50,000 unit) capsule 11-19 00:00: 00 Yes [id number] Take 1 capsule by mouth weekly. [facility] ergocalcife rol, vitamin d2, 1,250 mcg (50,000 unit) capsule 11-19 00:00: 00 Yes [id number] Take 1 capsule by mouth weekly. [facility] ergocalcife rol, vitamin d2, 1,250 mcg (50,000 unit) capsule 11-19 00:00: 00 Yes [id number] Take 1 capsule by mouth weekly. [facility] ergocalcife rol, vitamin d2, 1,250 mcg (50,000 unit) capsule 11-19 00:00: 00 Yes [id number] Take 1 capsule by mouth weekly. [facility] ergocalcife rol, vitamin d2, 1,250 mcg (50,000 unit) capsule 11-19 00:00: 00 Yes [id number] Take 1 capsule by mouth weekly. [facility] ergocalcife rol, vitamin d2, 1,250 mcg (50,000 unit) capsule 11-19 00:00: 00 Yes [id number] Take 1 capsule by mouth weekly. [facility] ergocalcife rol, vitamin d2, 1,250 mcg (50,000 unit) capsule 11-19 00:00: 00 Yes [id number] Take 1 capsule by mouth weekly. [facility] ergocalcife rol, vitamin d2, 1,250 mcg (50,000 unit) capsule 11-19 00:00: 00 Yes [id number] Take 1 capsule by mouth weekly. [facility] ergocalcife rol, vitamin d2, 1,250 mcg (50,000 unit) capsule 11-19 00:00: 00 Yes [id number] Take 1 capsule by mouth weekly. [facility] Cephalexin 500 MG Cephalexin 500 MG 18 00:00: 00 No 1{table t} TID Cephalexin 500 MG Cephalexin 500 MG Cephalexin 500 MG 18 00:00: 00 No 1{table t} TID Cephalexin 500 MG URSODIOL 250 mg tablet 2022-10 00:00: 00 Yes [id number] 500mg TAKE TWO (2) TABLET(S) BY MOUTH TWICE A DAY. [facility] URSODIOL 250 mg tablet 2022-10 00:00: 00 Yes [id number] 500mg TAKE TWO (2) TABLET(S) BY MOUTH TWICE A DAY. [facility] URSODIOL 250 mg tablet 2022-10 00:00: 00 Yes [id number] 500mg TAKE TWO (2) TABLET(S) BY MOUTH TWICE A DAY. [facility] URSODIOL 250 mg tablet 2022-10 00:00: 00 Yes [id number] 500mg TAKE TWO (2) TABLET(S) BY MOUTH TWICE A DAY. [facility] URSODIOL 250 mg tablet 2022-10 00:00: 00 Yes [id number] 500mg TAKE TWO (2) TABLET(S) BY MOUTH TWICE A DAY. [facility] URSODIOL 250 mg tablet 2022-10 00:00: 00 Yes [id number] 500mg TAKE TWO (2) TABLET(S) BY MOUTH TWICE A DAY. [facility] URSODIOL 250 mg tablet 2022-10 00:00: 00 Yes [id number] 500mg TAKE TWO (2) TABLET(S) BY MOUTH TWICE A DAY. [facility] URSODIOL 250 mg tablet 2022-10 00:00: 00 Yes [id number] 500mg TAKE TWO (2) TABLET(S) BY MOUTH TWICE A DAY. [facility] URSODIOL 250 mg tablet 2022-10 00:00: 00 Yes [id number] 500mg TAKE TWO (2) TABLET(S) BY MOUTH TWICE A DAY. [facility] URSODIOL 250 mg tablet 2022-10 00:00: 00 Yes [id number] 500mg TAKE TWO (2) TABLET(S) BY MOUTH TWICE A DAY. [facility] entecavir 0.5 mg tablet 2022-10 2-12 00:00: 00 Yes [id number] .5mg Take 1 tablet by mouth in the morning. [facility] entecavir 0.5 mg tablet 2022-10 2- 00:00: 00 Yes [id number] .5mg Take 1 tablet by mouth in the morning. [facility] entecavir 0.5 mg tablet 2022-10 2- 00:00: 00 Yes [id number] .5mg Take 1 tablet by mouth in the morning. [facility] entecavir 0.5 mg tablet 2022-10 2- 00:00: 00 Yes [id number] .5mg Take 1 tablet by mouth in the morning. [facility] entecavir 0.5 mg tablet 2022-10 2 00:00: 00 Yes [id number] .5mg Take 1 tablet by mouth in the morning. [facility] entecavir 0.5 mg tablet 2022-10 2- 00:00: 00 Yes [id number] .5mg Take 1 tablet by mouth in the morning. [facility] entecavir 0.5 mg tablet 2022-10 2 00:00: 00 Yes [id number] .5mg Take 1 tablet by mouth in the morning. [facility] entecavir 0.5 mg tablet 2022-10 2- 00:00: 00 Yes [id number] .5mg Take 1 tablet by mouth in the morning. [facility] entecavir 0.5 mg tablet 2022-10 2- 00:00: 00 Yes [id number] .5mg Take 1 tablet by mouth in the morning. [facility] entecavir 0.5 mg tablet 2022-10 2- 00:00: 00 Yes [id number] .5mg Take 1 tablet by mouth in the morning. [facility] entecavir 0.5 mg tablet 2022-10 2- 00:00: 00 Yes [id number] .5mg Take 1 tablet by mouth in the morning. [facility] Levothyroxi ne (TIROSINT) 125 mcg capsule 13 00:00: 00 Yes [id number] .125mg Take 1 capsule by mouth in the morning. [facility] Levothyroxi ne (TIROSINT) 125 mcg capsule 2022-0 07-03 00:00: 00 Yes [id number] .125mg Take 1 capsule by mouth in the morning. [facility] Levothyroxi ne (TIROSINT) 125 mcg capsule 2022-0 07-03 00:00: 00 Yes [id number] .125mg Take 1 capsule by mouth in the morning. [facility] Levothyroxi ne (TIROSINT) 125 mcg capsule 2022-0 07-03 00:00: 00 Yes [id number] .125mg Take 1 capsule by mouth in the morning. [facility] Levothyroxi ne (TIROSINT) 125 mcg capsule 2022-0 07-03 00:00: 00 Yes [id number] .125mg Take 1 capsule by mouth in the morning. [facility] Levothyroxi ne (TIROSINT) 125 mcg capsule 2022-0 07-03 00:00: 00 Yes [id number] .125mg Take 1 capsule by mouth in the morning. [facility] Levothyroxi ne (TIROSINT) 125 mcg capsule 2022-0 07-03 00:00: 00 Yes [id number] .125mg Take 1 capsule by mouth in the morning. [facility] Levothyroxi ne (TIROSINT) 125 mcg capsule 2022-0 07-03 00:00: 00 12-18 00:00 :00 No [id number] .125mg Take 1 capsule by mouth in the morning. [facility] Levothyroxi ne (TIROSINT) 125 mcg capsule 2022-0 07-03 00:00: 00 12-18 00:00 :00 No [id number] .125mg Take 1 capsule by mouth in the morning. [facility] ergocalcife rol, vitamin d2, 1,250 mcg (50,000 unit) capsule 2022-0 06-25 00:00: 00 Yes [id number] Take 1 capsule by mouth weekly. [facility] ergocalcife rol, vitamin d2, 1,250 mcg (50,000 unit) capsule 0 06-25 00:00: 00 Yes [id number] Take 1 capsule by mouth weekly. [facility] ergocalcife rol, vitamin d2, 1,250 mcg (50,000 unit) capsule 0 06-25 00:00: 00 Yes [id number] Take 1 capsule by mouth weekly. [facility] ergocalcife rol, vitamin d2, 1,250 mcg (50,000 unit) capsule 0 06-25 00:00: 00 Yes [id number] Take 1 capsule by mouth weekly. [facility] ergocalcife rol, vitamin d2, 1,250 mcg (50,000 unit) capsule 0 06-25 00:00: 00 Yes [id number] Take 1 capsule by mouth weekly. [facility] ergocalcife rol, vitamin d2, 1,250 mcg (50,000 unit) capsule 0 06-25 00:00: 00 Yes [id number] Take 1 capsule by mouth weekly. [facility] ergocalcife rol, vitamin d2, 1,250 mcg (50,000 unit) capsule 06-25 00:00: 00 Yes [id number] Take 1 capsule by mouth weekly. [facility] ergocalcife rol, vitamin d2, 1,250 mcg (50,000 unit) capsule 0 06-25 00:00: 00 11-19 00:00 :00 No [id number] Take 1 capsule by mouth weekly. [facility] ergocalcife rol, vitamin d2, 1,250 mcg (50,000 unit) capsule 06-25 00:00: 00 11-19 00:00 :00 No [id number] Take 1 capsule by mouth weekly. [facility] ursodioL 250 mg tablet 0 8-21 00:00: 00 Yes [id number] 500mg TAKE TWO (2) TABLETS BY MOUTH IN THE MORNING AND 2 TABLETS IN THE EVENING. [facility] ursodioL 250 mg tablet 3-0 8-21 00:00: 00 Yes [id number] 500mg TAKE TWO (2) TABLETS BY MOUTH IN THE MORNING AND 2 TABLETS IN THE EVENING. [facility] ursodioL 250 mg tablet 2022-0 8-21 00:00: 00 Yes [id number] 500mg TAKE TWO (2) TABLETS BY MOUTH IN THE MORNING AND 2 TABLETS IN THE EVENING. [facility] ursodioL 250 mg tablet 2022-0 8-21 00:00: 00 Yes [id number] 500mg TAKE TWO (2) TABLETS BY MOUTH IN THE MORNING AND 2 TABLETS IN THE EVENING. [facility] ursodioL 250 mg tablet 2022-0 8- 00:00: 00 Yes [id number] 500mg TAKE TWO (2) TABLETS BY MOUTH IN THE MORNING AND 2 TABLETS IN THE EVENING. [facility] ursodioL 250 mg tablet 2022-0 8- 00:00: 00 Yes [id number] 500mg TAKE TWO (2) TABLETS BY MOUTH IN THE MORNING AND 2 TABLETS IN THE EVENING. [facility] ursodioL 250 mg tablet 2022-0 821 00:00: 00 - 00:00 :00 No [id number] 500mg TAKE TWO (2) TABLETS BY MOUTH IN THE MORNING AND 2 TABLETS IN THE EVENING. [facility] Dexlansopra zole (DEXILANT) 60 mg capsule 2022-0 8-12 00:00: 00 Yes [id number] 60mg Take 1 capsule by mouth in the morning. [facility] Dexlansopra zole (DEXILANT) 60 mg capsule 2022-0 8-12 00:00: 00 Yes [id number] 60mg Take 1 capsule by mouth in the morning. [facility] Dexlansopra zole (DEXILANT) 60 mg capsule 3-0 8-12 00:00: 00 Yes [id number] 60mg Take 1 capsule by mouth in the morning. [facility] Dexlansopra zole (DEXILANT) 60 mg capsule 3-0 8-12 00:00: 00 Yes [id number] 60mg Take 1 capsule by mouth in the morning. [facility] Dexlansopra zole (DEXILANT) 60 mg capsule 3-0 8-12 00:00: 00 Yes [id number] 60mg Take 1 capsule by mouth in the morning. [facility] Dexlansopra zole (DEXILANT) 60 mg capsule 3-0 8-12 00:00: 00 Yes [id number] 60mg Take 1 capsule by mouth in the morning. [facility] Dexlansopra zole (DEXILANT) 60 mg capsule 3-0 8-12 00:00: 00 Yes [id number] 60mg Take 1 capsule by mouth in the morning. [facility] Dexlansopra zole (DEXILANT) 60 mg capsule 3-0 8-12 00:00: 00 Yes [id number] 60mg Take 1 capsule by mouth in the morning. [facility] Dexlansopra zole (DEXILANT) 60 mg capsule 2022-0 8-12 00:00: 00 Yes [id number] 60mg Take 1 capsule by mouth in the morning. [facility] Dexlansopra zole (DEXILANT) 60 mg capsule 3-0 8-12 00:00: 00 Yes [id number] 60mg Take 1 capsule by mouth in the morning. [facility] Dexlansopra zole (DEXILANT) 60 mg capsule 2022-0 8-12 00:00: 00 Yes [id number] 60mg Take 1 capsule by mouth in the morning. [facility] Dexlansopra zole (DEXILANT) 60 mg capsule 3-0 8-12 00:00: 00 Yes [id number] 60mg Take 1 capsule by mouth in the morning. [facility] Dexlansopra zole (DEXILANT) 60 mg capsule 3-0 8-12 00:00: 00 Yes [id number] 60mg Take 1 capsule by mouth in the morning. [facility] Dexlansopra zole (DEXILANT) 60 mg capsule 3-0 8-12 00:00: 00 Yes [id number] 60mg Take 1 capsule by mouth in the morning. [facility] Dexlansopra zole (DEXILANT) 60 mg capsule 2023-0 8-12 00:00: 00 Yes [id number] 60mg Take 1 capsule by mouth in the morning. [facility] Dexlansopra zole (DEXILANT) 60 mg capsule 3-0 8-12 00:00: 00 Yes [id number] 60mg Take 1 capsule by mouth in the morning. [facility] Dexlansopra zole (DEXILANT) 60 mg capsule 3-0 8-12 00:00: 00 Yes [id number] 60mg Take 1 capsule by mouth in the morning. [facility] Dexlansopra zole (DEXILANT) 60 mg capsule 3-0 8-12 00:00: 00 Yes [id number] 60mg Take 1 capsule by mouth in the morning. [facility] Dexlansopra zole (DEXILANT) 60 mg capsule 3-0 8-12 00:00: 00 Yes [id number] 60mg Take 1 capsule by mouth in the morning. [facility] fluticasone propion-alf meteroL 250-50 mcg/dose inhalation disk 3-0 8-10 10:27: 19 Yes 1 puff [facility] fluticasone propion-alf meteroL 250-50 mcg/dose inhalation disk 3-0 8-10 10:27: 19 Yes 1 puff [facility] fluticasone propion-alf meteroL 250-50 mcg/dose inhalation disk 3-0 8-10 10:27: 19 Yes 1 puff [facility] fluticasone propion-alf meteroL 250-50 mcg/dose inhalation disk 3-0 8-10 10:27: 19 Yes 1 puff [facility] fluticasone propion-alf meteroL 250-50 mcg/dose inhalation disk 3-0 8-10 10:27: 19 Yes 1 puff [facility] fluticasone propion-alf meteroL 250-50 mcg/dose inhalation disk 3-0 8-10 10:27: 19 Yes 1 puff [facility] fluticasone propion-alf meteroL 250-50 mcg/dose inhalation disk 2023-0 8-10 10:27: 19 Yes 1 puff [facility] fluticasone propion-alf meteroL 250-50 mcg/dose inhalation disk 2022-0 8-10 10:27: 19 Yes 1 puff [facility] fluticasone propion-alf meteroL 250-50 mcg/dose inhalation disk 2022-0 8-10 10:27: 19 Yes 1 puff [facility] fluticasone propion-alf meteroL 250-50 mcg/dose inhalation disk 2022-0 8-10 10:27: 19 Yes 1 puff [facility] fluticasone propion-alf meteroL 250-50 mcg/dose inhalation disk 2022-0 8-10 10:27: 19 Yes 1 puff [facility] fluticasone propion-alf meteroL 250-50 mcg/dose inhalation disk 2022-0 8-10 10:27: 19 Yes 1 puff [facility] fluticasone propion-alf meteroL 250-50 mcg/dose inhalation disk 2022-0 8-10 10:27: 19 Yes 1 puff [facility] fluticasone propion-alf meteroL 250-50 mcg/dose inhalation disk 2022-0 8-10 10:27: 19 Yes 1 puff [facility] fluticasone propion-alf meteroL 250-50 mcg/dose inhalation disk 2022-0 8-10 10:27: 19 Yes 1 puff [facility] fluticasone propion-alf meteroL 250-50 mcg/dose inhalation disk 2022-0 8-10 10:27: 19 Yes 1 puff [facility] fluticasone propion-alf meteroL 250-50 mcg/dose inhalation disk 2022-0 8-10 10:27: 19 Yes 1 puff [facility] fluticasone propion-alf meteroL 250-50 mcg/dose inhalation disk 2022-0 8-10 10:27: 19 Yes 1 puff [facility] fluticasone propion-alf meteroL 250-50 mcg/dose inhalation disk 2022-0 8-10 10:27: 19 Yes 1 puff [facility] fluticasone propion-alf meteroL 250-50 mcg/dose inhalation disk 2022-0 05-30 10:27: 19 Yes 1 puff [facility] fluticasone propion-alf meteroL 250-50 mcg/dose inhalation disk 2022-0 05-30 10:27: 19 Yes 1 puff [facility] fluticasone propion-alf meteroL 250-50 mcg/dose inhalation disk 0 05-30 10:27: 19 Yes 1 puff [facility] fluticasone propion-alf meteroL 250-50 mcg/dose inhalation disk 2022-0 05-21 14:35: 52 Yes 1 puff [facility] fluticasone propion-alf meteroL 250-50 mcg/dose inhalation disk 0 05-21 14:35: 52 Yes 1 puff [facility] fluticasone propion-alf meteroL 250-50 mcg/dose inhalation disk 0 05-21 14:35: 52 Yes 1 puff [facility] fluticasone propion-alf meteroL 250-50 mcg/dose inhalation disk 0 05-21 14:35: 52 Yes 1 puff [facility] fluticasone propion-alf meteroL 250-50 mcg/dose inhalation disk 0 05-21 14:35: 52 Yes 1 puff [facility] fluticasone propion-alf meteroL 250-50 mcg/dose inhalation disk 0 05-21 14:35: 52 Yes 1 puff [facility] [place] 112 mcg capsule 05-21 00:00: 00 Yes [id number] 112ug Take 1 capsule by mouth every morning. [facility] ergocalcife rol, vitamin d2, 1,250 mcg (50,000 unit) capsule 05-21 00:00: 00 Yes [id number] Take 1 capsule by mouth weekly. [facility] [place] 112 mcg capsule 05-21 00:00: 00 Yes [id number] 112ug Take 1 capsule by mouth every morning. [facility] ergocalcife rol, vitamin d2, 1,250 mcg (50,000 unit) capsule 0 8 00:00: 00 Yes [id number] Take 1 capsule by mouth weekly. [facility] [place] 112 mcg capsule 2022-0 8 00:00: 00 Yes [id number] 112ug Take 1 capsule by mouth every morning. [facility] ergocalcife rol, vitamin d2, 1,250 mcg (50,000 unit) capsule 2022-0 8 00:00: 00 Yes [id number] Take 1 capsule by mouth weekly. [facility] [place] 112 mcg capsule 0 8 00:00: 00 Yes [id number] 112ug Take 1 capsule by mouth every morning. [facility] ergocalcife rol, vitamin d2, 1,250 mcg (50,000 unit) capsule 0 05-21 00:00: 00 Yes [id number] Take 1 capsule by mouth weekly. [facility] [place] 112 mcg capsule 2022-0 05-21 00:00: 00 Yes [id number] 112ug Take 1 capsule by mouth every morning. [facility] ergocalcife rol, vitamin d2, 1,250 mcg (50,000 unit) capsule 0 05-21 00:00: 00 Yes [id number] Take 1 capsule by mouth weekly. [facility] [place] 112 mcg capsule 2022-0 8 00:00: 00 Yes [id number] 112ug Take 1 capsule by mouth every morning. [facility] ergocalcife rol, vitamin d2, 1,250 mcg (50,000 unit) capsule 0 8 00:00: 00 Yes [id number] Take 1 capsule by mouth weekly. [facility] [place] 112 mcg capsule 2022-0 8 00:00: 00 Yes [id number] 112ug Take 1 capsule by mouth every morning. [facility] ergocalcife rol, vitamin d2, 1,250 mcg (50,000 unit) capsule 0 - 00:00: 00 Yes [id number] Take 1 capsule by mouth weekly. [facility] [place] 112 mcg capsule 2022-0 8- 00:00: 00 Yes [id number] 112ug Take 1 capsule by mouth every morning. [facility] ergocalcife rol, vitamin d2, 1,250 mcg (50,000 unit) capsule 0 8- 00:00: 00 Yes [id number] Take 1 capsule by mouth weekly. [facility] [place] 112 mcg capsule 2022-0 8- 00:00: 00 Yes [id number] 112ug Take 1 capsule by mouth every morning. [facility] ergocalcife rol, vitamin d2, 1,250 mcg (50,000 unit) capsule 0 8- 00:00: 00 Yes [id number] Take 1 capsule by mouth weekly. [facility] [place] 112 mcg capsule 2022-0 8- 00:00: 00 Yes [id number] 112ug Take 1 capsule by mouth every morning. [facility] ergocalcife rol, vitamin d2, 1,250 mcg (50,000 unit) capsule 0 8- 00:00: 00 Yes [id number] Take 1 capsule by mouth weekly. [facility] [place] 112 mcg capsule 2022-0 8- 00:00: 00 Yes [id number] 112ug Take 1 capsule by mouth every morning. [facility] [place] 112 mcg capsule 2022-0 8- 00:00: 00 Yes [id number] 112ug Take 1 capsule by mouth every morning. [facility] [place] 112 mcg capsule 2022-0 8- 00:00: 00 Yes [id number] 112ug Take 1 capsule by mouth every morning. [facility] [place] 112 mcg capsule 2022-0 8- 00:00: 00 07-03 00:00 :00 No [id number] 112ug Take 1 capsule by mouth every morning. [facility] [place] 112 mcg capsule 2022-0 8- 00:00: 00 07-03 00:00 :00 No [id number] 112ug Take 1 capsule by mouth every morning. [facility] ergocalcife rol, vitamin d2, 1,250 mcg (50,000 unit) capsule 05-21 00:00: 00 06-25 00:00 :00 No [id number] Take 1 capsule by mouth weekly. [facility] ergocalcife rol, vitamin d2, 1,250 mcg (50,000 unit) capsule 05-21 00:00: 06-25 00:00 :00 No [id number] Take 1 capsule by mouth weekly. [facility] ergocalcife rol, vitamin d2, 1,250 mcg (50,000 unit) capsule 05-21 00:00: 00 06-25 00:00 :00 No [id number] Take 1 capsule by mouth weekly. [facility] cefTRIAXone (ROCEPHIN) 1,000 mg in NaCl 0.9% (NS) 100 mL MINI-BAG 04-23 22:30: 00 04-23 22:58 :00 No 1000mg 1,000 mg, IV Piggyback, ONCE, 1 dose, On Sat04/23/23 at 1730, Administer over 30 Minutes, 100 mL
Reas on for Anti-Infec tive: Empiric Therapy for Suspected Infection< br>Empiric Therapy Site: Urine
D uration of therapy: 72 hours [facility] iopamidol (ISOVUE 370-500 mL) injection 145 mL 04-23 22:00: 00 04-23 22:00 :00 No [id number] 145mL 145 mL, Intravenou s, ONCE, 1 dose, On Sat04/23/23 at 1700, Routine [facility] cephALEXin (KEFLEX) 500 mg capsule 04-23 00:00: 00 05-01 04:59 :00 No [id number] 500mg Take 1 capsule by mouth in the morning and 1 capsule at noon and 1 capsule in the evening. Do all this for 7 days. [facility] iopamidol (ISOVUE 370-500 mL) injection 79 mL 02-07 18:38: 00 02-07 18:48 :00 No [id number] 79mL 79 mL, Intravenou s, ONCE, 1 dose, On Ambreen 02/07/23 at 1400, Routine [facility] sucralfate 1 gram tablet 2022-0 01-31 00:00: 00 Yes [id number] 1g Take 1 tablet by mouth before meals and at bedtime. [facility] sucralfate 1 gram tablet 2022-0 01-31 00:00: 00 Yes [id number] 1g Take 1 tablet by mouth before meals and at bedtime. [facility] sucralfate 1 gram tablet 2022-0 01-31 00:00: 00 Yes [id number] 1g Take 1 tablet by mouth before meals and at bedtime. [facility] sucralfate 1 gram tablet 2022-0 01-31 00:00: 00 Yes [id number] 1g Take 1 tablet by mouth before meals and at bedtime. [facility] sucralfate 1 gram tablet 2022-0 01-31 00:00: 00 Yes [id number] 1g Take 1 tablet by mouth before meals and at bedtime. [facility] sucralfate 1 gram tablet 2022-0 01-31 00:00: 00 Yes [id number] 1g Take 1 tablet by mouth before meals and at bedtime. [facility] sucralfate 1 gram tablet 0 13 00:00: 00 Yes [id number] 1g Take 1 tablet by mouth before meals and at bedtime. [facility] sucralfate 1 gram tablet 2022-0 13 00:00: 00 Yes [id number] 1g Take 1 tablet by mouth before meals and at bedtime. [facility] sucralfate 1 gram tablet 2022-0 13 00:00: 00 Yes [id number] 1g Take 1 tablet by mouth before meals and at bedtime. [facility] sucralfate 1 gram tablet 2022-0 13 00:00: 00 Yes [id number] 1g Take 1 tablet by mouth before meals and at bedtime. [facility] sucralfate 1 gram tablet 3-0 4-13 00:00: 00 Yes [id number] 1g Take 1 tablet by mouth before meals and at bedtime. [facility] sucralfate 1 gram tablet 3-0 4-13 00:00: 00 Yes [id number] 1g Take 1 tablet by mouth before meals and at bedtime. [facility] sucralfate 1 gram tablet 3-0 4-13 00:00: 00 Yes [id number] 1g Take 1 tablet by mouth before meals and at bedtime. [facility] sucralfate 1 gram tablet 3-0 4-13 00:00: 00 Yes [id number] 1g Take 1 tablet by mouth before meals and at bedtime. [facility] sucralfate 1 gram tablet 3-0 4-13 00:00: 00 Yes [id number] 1g Take 1 tablet by mouth before meals and at bedtime. [facility] sucralfate 1 gram tablet 3-0 4-13 00:00: 00 Yes [id number] 1g Take 1 tablet by mouth before meals and at bedtime. [facility] sucralfate 1 gram tablet 3-0 4-13 00:00: 00 Yes [id number] 1g Take 1 tablet by mouth before meals and at bedtime. [facility] sucralfate 1 gram tablet 3-0 4-13 00:00: 00 Yes [id number] 1g Take 1 tablet by mouth before meals and at bedtime. [facility] sucralfate 1 gram tablet 3-0 4-13 00:00: 00 Yes [id number] 1g Take 1 tablet by mouth before meals and at bedtime. [facility] sucralfate 1 gram tablet 3-0 4-13 00:00: 00 Yes [id number] 1g Take 1 tablet by mouth before meals and at bedtime. [facility] sucralfate 1 gram tablet 3-0 4-13 00:00: 00 Yes [id number] 1g Take 1 tablet by mouth before meals and at bedtime. [facility] sucralfate 1 gram tablet 3-0 4-13 00:00: 00 Yes [id number] 1g Take 1 tablet by mouth before meals and at bedtime. [facility] sucralfate 1 gram tablet 3-0 4-13 00:00: 00 Yes [id number] 1g Take 1 tablet by mouth before meals and at bedtime. [facility] sucralfate 1 gram tablet 3-0 4-13 00:00: 00 Yes [id number] 1g Take 1 tablet by mouth before meals and at bedtime. [facility] sucralfate 1 gram tablet 3-0 4-13 00:00: 00 Yes [id number] 1g Take 1 tablet by mouth before meals and at bedtime. [facility] sucralfate 1 gram tablet 3-0 4-13 00:00: 00 Yes [id number] 1g Take 1 tablet by mouth before meals and at bedtime. [facility] sucralfate 1 gram tablet 3-0 4-13 00:00: 00 Yes [id number] 1g Take 1 tablet by mouth before meals and at bedtime. [facility] sucralfate 1 gram tablet 3-0 4-13 00:00: 00 Yes [id number] 1g Take 1 tablet by mouth before meals and at bedtime. [facility] sucralfate 1 gram tablet 3-0 4-13 00:00: 00 Yes [id number] 1g Take 1 tablet by mouth before meals and at bedtime. [facility] sucralfate 1 gram tablet 3-0 4-13 00:00: 00 Yes [id number] 1g Take 1 tablet by mouth before meals and at bedtime. [facility] sucralfate 1 gram tablet 3-0 4-13 00:00: 00 Yes [id number] 1g Take 1 tablet by mouth before meals and at bedtime. [facility] sucralfate 1 gram tablet 3-0 4-13 00:00: 00 Yes [id number] 1g Take 1 tablet by mouth before meals and at bedtime. [facility] sucralfate 1 gram tablet 2023-0 4-13 00:00: 00 Yes [id number] 1g Take 1 tablet by mouth before meals and at bedtime. [facility] sucralfate 1 gram tablet 0 01-31 00:00: 00 Yes [id number] 1g Take 1 tablet by mouth before meals and at bedtime. [facility] sucralfate 1 gram tablet 01-31 00:00: 00 Yes [id number] 1g Take 1 tablet by mouth before meals and at bedtime. [facility] esomeprazol e 40 mg capsule 2021-10 00:00: 00 Yes [id number] 40mg Take 1 capsule by mouth in the morning. [facility] furosemide (LASIX) 20 mg tablet 2021-10 00:00: 00 Yes [id number] 20mg Take 1 tablet by mouth in the morning. [facility] famotidine (PEPCID) 20 mg tablet 2021-10 00:00: 00 Yes [id number] 20mg Take 1 tablet by mouth in the morning and 1 tablet in the evening. [facility] lactulose 10 gram/15 mL solution 2021-10 00:00: 00 Yes [id number] 15mL Take 15 mL by mouth in the morning and 15 mL in the evening. [facility] esomeprazol e 40 mg capsule 2021-10 00:00: 00 Yes [id number] 40mg Take 1 capsule by mouth in the morning. [facility] furosemide (LASIX) 20 mg tablet 2021-10 00:00: 00 Yes [id number] 20mg Take 1 tablet by mouth in the morning. [facility] famotidine (PEPCID) 20 mg tablet 2021-10 00:00: 00 Yes [id number] 20mg Take 1 tablet by mouth in the morning and 1 tablet in the evening. [facility] lactulose 10 gram/15 mL solution 2021-10 00:00: 00 Yes [id number] 15mL Take 15 mL by mouth in the morning and 15 mL in the evening. [facility] esomeprazol e 40 mg capsule 2021-10 00:00: 00 Yes [id number] 40mg Take 1 capsule by mouth in the morning. [facility] furosemide (LASIX) 20 mg tablet 2021-10 00:00: 00 Yes [id number] 20mg Take 1 tablet by mouth in the morning. [facility] famotidine (PEPCID) 20 mg tablet 2021-10 00:00: 00 Yes [id number] 20mg Take 1 tablet by mouth in the morning and 1 tablet in the evening. [facility] lactulose 10 gram/15 mL solution 2021-10 00:00: 00 Yes [id number] 15mL Take 15 mL by mouth in the morning and 15 mL in the evening. [facility] esomeprazol e 40 mg capsule 2021-10 00:00: 00 Yes [id number] 40mg Take 1 capsule by mouth in the morning. [facility] furosemide (LASIX) 20 mg tablet 2021-10 00:00: 00 Yes [id number] 20mg Take 1 tablet by mouth in the morning. [facility] famotidine (PEPCID) 20 mg tablet 2021-10 00:00: 00 Yes [id number] 20mg Take 1 tablet by mouth in the morning and 1 tablet in the evening. [facility] lactulose 10 gram/15 mL solution 2021-10 00:00: 00 Yes [id number] 15mL Take 15 mL by mouth in the morning and 15 mL in the evening. [facility] esomeprazol e 40 mg capsule 2021-10 00:00: 00 Yes [id number] 40mg Take 1 capsule by mouth in the morning. [facility] furosemide (LASIX) 20 mg tablet 2021-10 00:00: 00 Yes [id number] 20mg Take 1 tablet by mouth in the morning. [facility] famotidine (PEPCID) 20 mg tablet 2021-10 00:00: 00 Yes [id number] 20mg Take 1 tablet by mouth in the morning and 1 tablet in the evening. [facility] lactulose 10 gram/15 mL solution 2021-10 00:00: 00 Yes [id number] 15mL Take 15 mL by mouth in the morning and 15 mL in the evening. [facility] esomeprazol e 40 mg capsule 2021-10 00:00: 00 Yes [id number] 40mg Take 1 capsule by mouth in the morning. [facility] furosemide (LASIX) 20 mg tablet 2021-10 00:00: 00 Yes [id number] 20mg Take 1 tablet by mouth in the morning. [facility] famotidine (PEPCID) 20 mg tablet 2021-10 00:00: 00 Yes [id number] 20mg Take 1 tablet by mouth in the morning and 1 tablet in the evening. [facility] lactulose 10 gram/15 mL solution 2021-10 00:00: 00 Yes [id number] 15mL Take 15 mL by mouth in the morning and 15 mL in the evening. [facility] esomeprazol e 40 mg capsule 2021-10 00:00: 00 Yes [id number] 40mg Take 1 capsule by mouth in the morning. [facility] furosemide (LASIX) 20 mg tablet 2021-10 00:00: 00 Yes [id number] 20mg Take 1 tablet by mouth in the morning. [facility] famotidine (PEPCID) 20 mg tablet 2021-10 00:00: 00 Yes [id number] 20mg Take 1 tablet by mouth in the morning and 1 tablet in the evening. [facility] lactulose 10 gram/15 mL solution 2021-10 00:00: 00 Yes [id number] 15mL Take 15 mL by mouth in the morning and 15 mL in the evening. [facility] esomeprazol e 40 mg capsule 2021-10 00:00: 00 Yes [id number] 40mg Take 1 capsule by mouth in the morning. [facility] furosemide (LASIX) 20 mg tablet 2021-10 00:00: 00 Yes [id number] 20mg Take 1 tablet by mouth in the morning. [facility] famotidine (PEPCID) 20 mg tablet 2021-10 00:00: 00 Yes [id number] 20mg Take 1 tablet by mouth in the morning and 1 tablet in the evening. [facility] lactulose 10 gram/15 mL solution 2021-10 00:00: 00 Yes [id number] 15mL Take 15 mL by mouth in the morning and 15 mL in the evening. [facility] entecavir 0.5 mg tablet 2021-10 00:00: 00 Yes [id number] .5mg Take 1 tablet by mouth in the morning. [facility] esomeprazol e 40 mg capsule 2021-10 00:00: 00 Yes [id number] 40mg Take 1 capsule by mouth in the morning. [facility] furosemide (LASIX) 20 mg tablet 2021-10 00:00: 00 Yes [id number] 20mg Take 1 tablet by mouth in the morning. [facility] famotidine (PEPCID) 20 mg tablet 2021-10 00:00: 00 Yes [id number] 20mg Take 1 tablet by mouth in the morning and 1 tablet in the evening. [facility] lactulose 10 gram/15 mL solution 2021-10 00:00: 00 Yes [id number] 15mL Take 15 mL by mouth in the morning and 15 mL in the evening. [facility] entecavir 0.5 mg tablet 2021-10 00:00: 00 Yes [id number] .5mg Take 1 tablet by mouth in the morning. [facility] esomeprazol e 40 mg capsule 2021-10 00:00: 00 Yes [id number] 40mg Take 1 capsule by mouth in the morning. [facility] furosemide (LASIX) 20 mg tablet 2021-10 00:00: 00 Yes [id number] 20mg Take 1 tablet by mouth in the morning. [facility] famotidine (PEPCID) 20 mg tablet 2021-10 00:00: 00 Yes [id number] 20mg Take 1 tablet by mouth in the morning and 1 tablet in the evening. [facility] lactulose 10 gram/15 mL solution 2021-10 00:00: 00 Yes [id number] 15mL Take 15 mL by mouth in the morning and 15 mL in the evening. [facility] entecavir 0.5 mg tablet 2021-10 00:00: 00 Yes [id number] .5mg Take 1 tablet by mouth in the morning. [facility] esomeprazol e 40 mg capsule 2021-10 00:00: 00 Yes [id number] 40mg Take 1 capsule by mouth in the morning. [facility] furosemide (LASIX) 20 mg tablet 2021-10 00:00: 00 Yes [id number] 20mg Take 1 tablet by mouth in the morning. [facility] famotidine (PEPCID) 20 mg tablet 2021-10 00:00: 00 Yes [id number] 20mg Take 1 tablet by mouth in the morning and 1 tablet in the evening. [facility] lactulose 10 gram/15 mL solution 2021-10 00:00: 00 Yes [id number] 15mL Take 15 mL by mouth in the morning and 15 mL in the evening. [facility] entecavir 0.5 mg tablet 2021-10 00:00: 00 Yes [id number] .5mg Take 1 tablet by mouth in the morning. [facility] esomeprazol e 40 mg capsule 2021-10 00:00: 00 Yes [id number] 40mg Take 1 capsule by mouth in the morning. [facility] furosemide (LASIX) 20 mg tablet 2021-10 00:00: 00 Yes [id number] 20mg Take 1 tablet by mouth in the morning. [facility] famotidine (PEPCID) 20 mg tablet 2021-10 00:00: 00 Yes [id number] 20mg Take 1 tablet by mouth in the morning and 1 tablet in the evening. [facility] lactulose 10 gram/15 mL solution 2021-10 00:00: 00 Yes [id number] 15mL Take 15 mL by mouth in the morning and 15 mL in the evening. [facility] entecavir 0.5 mg tablet 2021-10 00:00: 00 Yes [id number] .5mg Take 1 tablet by mouth in the morning. [facility] esomeprazol e 40 mg capsule 2021-10 00:00: 00 Yes [id number] 40mg Take 1 capsule by mouth in the morning. [facility] furosemide (LASIX) 20 mg tablet 2021-10 00:00: 00 Yes [id number] 20mg Take 1 tablet by mouth in the morning. [facility] famotidine (PEPCID) 20 mg tablet 2021-10 00:00: 00 Yes [id number] 20mg Take 1 tablet by mouth in the morning and 1 tablet in the evening. [facility] lactulose 10 gram/15 mL solution 2021-10 00:00: 00 Yes [id number] 15mL Take 15 mL by mouth in the morning and 15 mL in the evening. [facility] entecavir 0.5 mg tablet 2021-10 00:00: 00 Yes [id number] .5mg Take 1 tablet by mouth in the morning. [facility] esomeprazol e 40 mg capsule 2021-10 00:00: 00 Yes [id number] 40mg Take 1 capsule by mouth in the morning. [facility] furosemide (LASIX) 20 mg tablet 2021-10 00:00: 00 Yes [id number] 20mg Take 1 tablet by mouth in the morning. [facility] famotidine (PEPCID) 20 mg tablet 2021-10 00:00: 00 Yes [id number] 20mg Take 1 tablet by mouth in the morning and 1 tablet in the evening. [facility] lactulose 10 gram/15 mL solution 2021-10 00:00: 00 Yes [id number] 15mL Take 15 mL by mouth in the morning and 15 mL in the evening. [facility] entecavir 0.5 mg tablet 2021-10 00:00: 00 Yes [id number] .5mg Take 1 tablet by mouth in the morning. [facility] esomeprazol e 40 mg capsule 2021-10 00:00: 00 Yes [id number] 40mg Take 1 capsule by mouth in the morning. [facility] furosemide (LASIX) 20 mg tablet 2021-10 00:00: 00 Yes [id number] 20mg Take 1 tablet by mouth in the morning. [facility] famotidine (PEPCID) 20 mg tablet 2021-10 00:00: 00 Yes [id number] 20mg Take 1 tablet by mouth in the morning and 1 tablet in the evening. [facility] lactulose 10 gram/15 mL solution 2021-10 00:00: 00 Yes [id number] 15mL Take 15 mL by mouth in the morning and 15 mL in the evening. [facility] entecavir 0.5 mg tablet 2021-10 00:00: 00 Yes [id number] .5mg Take 1 tablet by mouth in the morning. [facility] esomeprazol e 40 mg capsule 2021-10 00:00: 00 Yes [id number] 40mg Take 1 capsule by mouth in the morning. [facility] furosemide (LASIX) 20 mg tablet 2021-10 00:00: 00 Yes [id number] 20mg Take 1 tablet by mouth in the morning. [facility] famotidine (PEPCID) 20 mg tablet 2021-10 00:00: 00 Yes [id number] 20mg Take 1 tablet by mouth in the morning and 1 tablet in the evening. [facility] lactulose 10 gram/15 mL solution 2021-10 00:00: 00 Yes [id number] 15mL Take 15 mL by mouth in the morning and 15 mL in the evening. [facility] entecavir 0.5 mg tablet 2021-10 00:00: 00 Yes [id number] .5mg Take 1 tablet by mouth in the morning. [facility] esomeprazol e 40 mg capsule 2021-10 00:00: 00 Yes [id number] 40mg Take 1 capsule by mouth in the morning. [facility] furosemide (LASIX) 20 mg tablet 2021-10 00:00: 00 Yes [id number] 20mg Take 1 tablet by mouth in the morning. [facility] famotidine (PEPCID) 20 mg tablet 2021-10 00:00: 00 Yes [id number] 20mg Take 1 tablet by mouth in the morning and 1 tablet in the evening. [facility] lactulose 10 gram/15 mL solution 2021-10 00:00: 00 Yes [id number] 15mL Take 15 mL by mouth in the morning and 15 mL in the evening. [facility] entecavir 0.5 mg tablet 2021-10 00:00: 00 Yes [id number] .5mg Take 1 tablet by mouth in the morning. [facility] esomeprazol e 40 mg capsule 2021-10 00:00: 00 Yes [id number] 40mg Take 1 capsule by mouth in the morning. [facility] furosemide (LASIX) 20 mg tablet 2021-10 00:00: 00 Yes [id number] 20mg Take 1 tablet by mouth in the morning. [facility] famotidine (PEPCID) 20 mg tablet 2021-10 00:00: 00 Yes [id number] 20mg Take 1 tablet by mouth in the morning and 1 tablet in the evening. [facility] lactulose 10 gram/15 mL solution 2021-10 00:00: 00 Yes [id number] 15mL Take 15 mL by mouth in the morning and 15 mL in the evening. [facility] entecavir 0.5 mg tablet 2021-10 00:00: 00 Yes [id number] .5mg Take 1 tablet by mouth in the morning. [facility] esomeprazol e 40 mg capsule 2021-10 00:00: 00 Yes [id number] 40mg Take 1 capsule by mouth in the morning. [facility] furosemide (LASIX) 20 mg tablet 2021-10 00:00: 00 Yes [id number] 20mg Take 1 tablet by mouth in the morning. [facility] famotidine (PEPCID) 20 mg tablet 2021-10 00:00: 00 Yes [id number] 20mg Take 1 tablet by mouth in the morning and 1 tablet in the evening. [facility] lactulose 10 gram/15 mL solution 2021-10 00:00: 00 Yes [id number] 15mL Take 15 mL by mouth in the morning and 15 mL in the evening. [facility] entecavir 0.5 mg tablet 2021-10 00:00: 00 Yes [id number] .5mg Take 1 tablet by mouth in the morning. [facility] esomeprazol e 40 mg capsule 2021-10 00:00: 00 Yes [id number] 40mg Take 1 capsule by mouth in the morning. [facility] furosemide (LASIX) 20 mg tablet 2021-10 00:00: 00 Yes [id number] 20mg Take 1 tablet by mouth in the morning. [facility] famotidine (PEPCID) 20 mg tablet 2021-10 00:00: 00 Yes [id number] 20mg Take 1 tablet by mouth in the morning and 1 tablet in the evening. [facility] lactulose 10 gram/15 mL solution 2021-10 00:00: 00 Yes [id number] 15mL Take 15 mL by mouth in the morning and 15 mL in the evening. [facility] entecavir 0.5 mg tablet 2021-10 00:00: 00 Yes [id number] .5mg Take 1 tablet by mouth in the morning. [facility] esomeprazol e 40 mg capsule 2021-10 00:00: 00 Yes [id number] 40mg Take 1 capsule by mouth in the morning. [facility] furosemide (LASIX) 20 mg tablet 2021-10 00:00: 00 Yes [id number] 20mg Take 1 tablet by mouth in the morning. [facility] famotidine (PEPCID) 20 mg tablet 2021-10 00:00: 00 Yes [id number] 20mg Take 1 tablet by mouth in the morning and 1 tablet in the evening. [facility] lactulose 10 gram/15 mL solution 2021-10 00:00: 00 Yes [id number] 15mL Take 15 mL by mouth in the morning and 15 mL in the evening. [facility] entecavir 0.5 mg tablet 2021-10 00:00: 00 Yes [id number] .5mg Take 1 tablet by mouth in the morning. [facility] esomeprazol e 40 mg capsule 2021-10 00:00: 00 Yes [id number] 40mg Take 1 capsule by mouth in the morning. [facility] furosemide (LASIX) 20 mg tablet 2021-10 00:00: 00 Yes [id number] 20mg Take 1 tablet by mouth in the morning. [facility] famotidine (PEPCID) 20 mg tablet 2021-10 00:00: 00 Yes [id number] 20mg Take 1 tablet by mouth in the morning and 1 tablet in the evening. [facility] lactulose 10 gram/15 mL solution 2021-10 00:00: 00 Yes [id number] 15mL Take 15 mL by mouth in the morning and 15 mL in the evening. [facility] entecavir 0.5 mg tablet 2021-10 00:00: 00 Yes [id number] .5mg Take 1 tablet by mouth in the morning. [facility] esomeprazol e 40 mg capsule 2021-10 00:00: 00 Yes [id number] 40mg Take 1 capsule by mouth in the morning. [facility] furosemide (LASIX) 20 mg tablet 2021-10 00:00: 00 Yes [id number] 20mg Take 1 tablet by mouth in the morning. [facility] famotidine (PEPCID) 20 mg tablet 2021-10 00:00: 00 Yes [id number] 20mg Take 1 tablet by mouth in the morning and 1 tablet in the evening. [facility] lactulose 10 gram/15 mL solution 2021-10 00:00: 00 Yes [id number] 15mL Take 15 mL by mouth in the morning and 15 mL in the evening. [facility] entecavir 0.5 mg tablet 2021-10 00:00: 00 Yes [id number] .5mg Take 1 tablet by mouth in the morning. [facility] esomeprazol e 40 mg capsule 2021-10 00:00: 00 Yes [id number] 40mg Take 1 capsule by mouth in the morning. [facility] furosemide (LASIX) 20 mg tablet 2021-10 00:00: 00 Yes [id number] 20mg Take 1 tablet by mouth in the morning. [facility] famotidine (PEPCID) 20 mg tablet 2021-10 00:00: 00 Yes [id number] 20mg Take 1 tablet by mouth in the morning and 1 tablet in the evening. [facility] lactulose 10 gram/15 mL solution 2021-10 00:00: 00 Yes [id number] 15mL Take 15 mL by mouth in the morning and 15 mL in the evening. [facility] entecavir 0.5 mg tablet 2021-10 00:00: 00 Yes [id number] .5mg Take 1 tablet by mouth in the morning. [facility] esomeprazol e 40 mg capsule 2021-10 00:00: 00 Yes [id number] 40mg Take 1 capsule by mouth in the morning. [facility] furosemide (LASIX) 20 mg tablet 2021-10 00:00: 00 Yes [id number] 20mg Take 1 tablet by mouth in the morning. [facility] famotidine (PEPCID) 20 mg tablet 2021-10 00:00: 00 Yes [id number] 20mg Take 1 tablet by mouth in the morning and 1 tablet in the evening. [facility] lactulose 10 gram/15 mL solution 2021-10 00:00: 00 Yes [id number] 15mL Take 15 mL by mouth in the morning and 15 mL in the evening. [facility] entecavir 0.5 mg tablet 2021-10 00:00: 00 Yes [id number] .5mg Take 1 tablet by mouth in the morning. [facility] esomeprazol e 40 mg capsule 2021-10 00:00: 00 Yes [id number] 40mg Take 1 capsule by mouth in the morning. [facility] furosemide (LASIX) 20 mg tablet 2021-10 00:00: 00 Yes [id number] 20mg Take 1 tablet by mouth in the morning. [facility] famotidine (PEPCID) 20 mg tablet 2021-10 00:00: 00 Yes [id number] 20mg Take 1 tablet by mouth in the morning and 1 tablet in the evening. [facility] lactulose 10 gram/15 mL solution 2021-10 00:00: 00 Yes [id number] 15mL Take 15 mL by mouth in the morning and 15 mL in the evening. [facility] entecavir 0.5 mg tablet 2021-10 00:00: 00 Yes [id number] .5mg Take 1 tablet by mouth in the morning. [facility] esomeprazol e 40 mg capsule 2021-10 00:00: 00 Yes [id number] 40mg Take 1 capsule by mouth in the morning. [facility] furosemide (LASIX) 20 mg tablet 2021-10 00:00: 00 Yes [id number] 20mg Take 1 tablet by mouth in the morning. [facility] famotidine (PEPCID) 20 mg tablet 2021-10 00:00: 00 Yes [id number] 20mg Take 1 tablet by mouth in the morning and 1 tablet in the evening. [facility] lactulose 10 gram/15 mL solution 2021-10 00:00: 00 Yes [id number] 15mL Take 15 mL by mouth in the morning and 15 mL in the evening. [facility] entecavir 0.5 mg tablet 2021-10 00:00: 00 Yes [id number] .5mg Take 1 tablet by mouth in the morning. [facility] esomeprazol e 40 mg capsule 2021-10 00:00: 00 Yes [id number] 40mg Take 1 capsule by mouth in the morning. [facility] furosemide (LASIX) 20 mg tablet 2021-10 00:00: 00 Yes [id number] 20mg Take 1 tablet by mouth in the morning. [facility] famotidine (PEPCID) 20 mg tablet 2021-10 00:00: 00 Yes [id number] 20mg Take 1 tablet by mouth in the morning and 1 tablet in the evening. [facility] lactulose 10 gram/15 mL solution 2021-10 00:00: 00 Yes [id number] 15mL Take 15 mL by mouth in the morning and 15 mL in the evening. [facility] entecavir 0.5 mg tablet 2021-10 00:00: 00 Yes [id number] .5mg Take 1 tablet by mouth in the morning. [facility] esomeprazol e 40 mg capsule 2021-10 00:00: 00 Yes [id number] 40mg Take 1 capsule by mouth in the morning. [facility] furosemide (LASIX) 20 mg tablet 2021-10 00:00: 00 Yes [id number] 20mg Take 1 tablet by mouth in the morning. [facility] famotidine (PEPCID) 20 mg tablet 2021-10 00:00: 00 Yes [id number] 20mg Take 1 tablet by mouth in the morning and 1 tablet in the evening. [facility] lactulose 10 gram/15 mL solution 2021-10 00:00: 00 Yes [id number] 15mL Take 15 mL by mouth in the morning and 15 mL in the evening. [facility] entecavir 0.5 mg tablet 2021-10 00:00: 00 Yes [id number] .5mg Take 1 tablet by mouth in the morning. [facility] esomeprazol e 40 mg capsule 2021-10 00:00: 00 Yes [id number] 40mg Take 1 capsule by mouth in the morning. [facility] furosemide (LASIX) 20 mg tablet 2021-10 00:00: 00 Yes [id number] 20mg Take 1 tablet by mouth in the morning. [facility] famotidine (PEPCID) 20 mg tablet 2021-10 00:00: 00 Yes [id number] 20mg Take 1 tablet by mouth in the morning and 1 tablet in the evening. [facility] lactulose 10 gram/15 mL solution 2021-10 00:00: 00 Yes [id number] 15mL Take 15 mL by mouth in the morning and 15 mL in the evening. [facility] entecavir 0.5 mg tablet 2021-10 00:00: 00 Yes [id number] .5mg Take 1 tablet by mouth in the morning. [facility] esomeprazol e 40 mg capsule 2021-10 00:00: 00 Yes [id number] 40mg Take 1 capsule by mouth in the morning. [facility] furosemide (LASIX) 20 mg tablet 2021-10 00:00: 00 Yes [id number] 20mg Take 1 tablet by mouth in the morning. [facility] famotidine (PEPCID) 20 mg tablet 2021-10 00:00: 00 Yes [id number] 20mg Take 1 tablet by mouth in the morning and 1 tablet in the evening. [facility] lactulose 10 gram/15 mL solution 2021-10 00:00: 00 Yes [id number] 15mL Take 15 mL by mouth in the morning and 15 mL in the evening. [facility] entecavir 0.5 mg tablet 2021-10 00:00: 00 Yes [id number] .5mg Take 1 tablet by mouth in the morning. [facility] esomeprazol e 40 mg capsule 2021-10 00:00: 00 Yes [id number] 40mg Take 1 capsule by mouth in the morning. [facility] furosemide (LASIX) 20 mg tablet 2021-10 00:00: 00 Yes [id number] 20mg Take 1 tablet by mouth in the morning. [facility] famotidine (PEPCID) 20 mg tablet 2021-10 00:00: 00 Yes [id number] 20mg Take 1 tablet by mouth in the morning and 1 tablet in the evening. [facility] lactulose 10 gram/15 mL solution 2021-10 00:00: 00 Yes [id number] 15mL Take 15 mL by mouth in the morning and 15 mL in the evening. [facility] entecavir 0.5 mg tablet 2021-10 00:00: 00 Yes [id number] .5mg Take 1 tablet by mouth in the morning. [facility] esomeprazol e 40 mg capsule 2021-10 00:00: 00 Yes [id number] 40mg Take 1 capsule by mouth in the morning. [facility] furosemide (LASIX) 20 mg tablet 2021-10 00:00: 00 Yes [id number] 20mg Take 1 tablet by mouth in the morning. [facility] famotidine (PEPCID) 20 mg tablet 2021-10 00:00: 00 Yes [id number] 20mg Take 1 tablet by mouth in the morning and 1 tablet in the evening. [facility] lactulose 10 gram/15 mL solution 2021-10 00:00: 00 Yes [id number] 15mL Take 15 mL by mouth in the morning and 15 mL in the evening. [facility] entecavir 0.5 mg tablet 2021-10 00:00: 00 Yes [id number] .5mg Take 1 tablet by mouth in the morning. [facility] esomeprazol e 40 mg capsule 2021-10 00:00: 00 Yes [id number] 40mg Take 1 capsule by mouth in the morning. [facility] furosemide (LASIX) 20 mg tablet 2021-10 00:00: 00 Yes [id number] 20mg Take 1 tablet by mouth in the morning. [facility] famotidine (PEPCID) 20 mg tablet 2021-10 00:00: 00 Yes [id number] 20mg Take 1 tablet by mouth in the morning and 1 tablet in the evening. [facility] lactulose 10 gram/15 mL solution 2021-10 00:00: 00 Yes [id number] 15mL Take 15 mL by mouth in the morning and 15 mL in the evening. [facility] entecavir 0.5 mg tablet 2021-10 00:00: 00 Yes [id number] .5mg Take 1 tablet by mouth in the morning. [facility] esomeprazol e 40 mg capsule 2021-10 00:00: 00 Yes [id number] 40mg Take 1 capsule by mouth in the morning. [facility] furosemide (LASIX) 20 mg tablet 2021-10 00:00: 00 Yes [id number] 20mg Take 1 tablet by mouth in the morning. [facility] famotidine (PEPCID) 20 mg tablet 2021-10 00:00: 00 Yes [id number] 20mg Take 1 tablet by mouth in the morning and 1 tablet in the evening. [facility] lactulose 10 gram/15 mL solution 2021-10 00:00: 00 Yes [id number] 15mL Take 15 mL by mouth in the morning and 15 mL in the evening. [facility] entecavir 0.5 mg tablet 2021-10 00:00: 00 Yes [id number] .5mg Take 1 tablet by mouth in the morning. [facility] esomeprazol e 40 mg capsule 2021-10 00:00: 00 Yes [id number] 40mg Take 1 capsule by mouth in the morning. [facility] furosemide (LASIX) 20 mg tablet 2021-10 00:00: 00 Yes [id number] 20mg Take 1 tablet by mouth in the morning. [facility] famotidine (PEPCID) 20 mg tablet 2021-10 00:00: 00 Yes [id number] 20mg Take 1 tablet by mouth in the morning and 1 tablet in the evening. [facility] lactulose 10 gram/15 mL solution 2021-10 00:00: 00 Yes [id number] 15mL Take 15 mL by mouth in the morning and 15 mL in the evening. [facility] esomeprazol e 40 mg capsule 2021-10 00:00: 00 Yes [id number] 40mg Take 1 capsule by mouth in the morning. [facility] furosemide (LASIX) 20 mg tablet 2021-10 00:00: 00 Yes [id number] 20mg Take 1 tablet by mouth in the morning. [facility] famotidine (PEPCID) 20 mg tablet 2021-10 00:00: 00 Yes [id number] 20mg Take 1 tablet by mouth in the morning and 1 tablet in the evening. [facility] lactulose 10 gram/15 mL solution 2021-10 00:00: 00 Yes [id number] 15mL Take 15 mL by mouth in the morning and 15 mL in the evening. [facility] esomeprazol e 40 mg capsule 2021-10 00:00: 00 Yes [id number] 40mg Take 1 capsule by mouth in the morning. [facility] furosemide (LASIX) 20 mg tablet 2021-10 00:00: 00 Yes [id number] 20mg Take 1 tablet by mouth in the morning. [facility] famotidine (PEPCID) 20 mg tablet 2021-10 00:00: 00 Yes [id number] 20mg Take 1 tablet by mouth in the morning and 1 tablet in the evening. [facility] lactulose 10 gram/15 mL solution 2021-10 00:00: 00 Yes [id number] 15mL Take 15 mL by mouth in the morning and 15 mL in the evening. [facility] esomeprazol e 40 mg capsule 2021-10 00:00: 00 Yes [id number] 40mg Take 1 capsule by mouth in the morning. [facility] furosemide (LASIX) 20 mg tablet 2021-10 00:00: 00 Yes [id number] 20mg Take 1 tablet by mouth in the morning. [facility] famotidine (PEPCID) 20 mg tablet 2021-10 00:00: 00 Yes [id number] 20mg Take 1 tablet by mouth in the morning and 1 tablet in the evening. [facility] lactulose 10 gram/15 mL solution 2021-10 00:00: 00 Yes [id number] 15mL Take 15 mL by mouth in the morning and 15 mL in the evening. [facility] entecavir 0.5 mg tablet 2021-10 00:00: 00 09-28 00:00 :00 No [id number] .5mg Take 1 tablet by mouth in the morning. [facility] Levothyroxi ne (TIROSINT) 112 mcg capsule 2021-10 00:00: 00 Yes [id number] 112ug Take 1 capsule by mouth every morning. [facility] Levothyroxi ne (TIROSINT) 112 mcg capsule 2021-10 00:00: 00 Yes [id number] 112ug Take 1 capsule by mouth every morning. [facility] Levothyroxi ne (TIROSINT) 112 mcg capsule 2021-10 00:00: 00 Yes [id number] 112ug Take 1 capsule by mouth every morning. [facility] Levothyroxi ne (TIROSINT) 112 mcg capsule 2021-10 00:00: 00 Yes [id number] 112ug Take 1 capsule by mouth every morning. [facility] Levothyroxi ne (TIROSINT) 112 mcg capsule 2021-10 00:00: 00 Yes [id number] 112ug Take 1 capsule by mouth every morning. [facility] Levothyroxi ne (TIROSINT) 112 mcg capsule 2021-10 00:00: 00 Yes [id number] 112ug Take 1 capsule by mouth every morning. [facility] Levothyroxi ne (TIROSINT) 112 mcg capsule 2021-10- 00:00: 00 Yes [id number] 112ug Take 1 capsule by mouth every morning. [facility] Levothyroxi ne (TIROSINT) 112 mcg capsule 2021-10 2- 00:00: 00 Yes [id number] 112ug Take 1 capsule by mouth every morning. [facility] Levothyroxi ne (TIROSINT) 112 mcg capsule 2021-10 2- 00:00: 00 Yes [id number] 112ug Take 1 capsule by mouth every morning. [facility] Levothyroxi ne (TIROSINT) 112 mcg capsule 2021-10 2 00:00: 00 Yes [id number] 112ug Take 1 capsule by mouth every morning. [facility] Levothyroxi ne (TIROSINT) 112 mcg capsule 2021-10 2 00:00: 00 Yes [id number] 112ug Take 1 capsule by mouth every morning. [facility] Levothyroxi ne (TIROSINT) 112 mcg capsule 2021-10 2 00:00: 00 Yes [id number] 112ug Take 1 capsule by mouth every morning. [facility] Levothyroxi ne (TIROSINT) 112 mcg capsule 2021-10 2 00:00: 00 05-21 00:00 :00 No [id number] 112ug Take 1 capsule by mouth every morning. [facility] Levothyroxi ne (TIROSINT) 112 mcg capsule 2021-10 2 00:00: 00 05-21 00:00 :00 No [id number] 112ug Take 1 capsule by mouth every morning. [facility] Levothyroxi ne (TIROSINT) 112 mcg capsule 2021-10 2 00:00: 00 05-21 00:00 :00 No [id number] 112ug Take 1 capsule by mouth every morning. [facility] Levothyroxi ne (TIROSINT) 112 mcg capsule 2021-10 2 00:00: 00 05-21 00:00 :00 No [id number] 112ug Take 1 capsule by mouth every morning. [facility] Levothyroxi ne (TIROSINT) 112 mcg capsule 2021-10 2-05 00:00: 00 05-21 00:00 :00 No [id number] 112ug Take 1 capsule by mouth every morning. [facility] Levothyroxi ne (TIROSINT) 112 mcg capsule 2021-10 2-05 00:00: 00 05-21 00:00 :00 No [id number] 112ug Take 1 capsule by mouth every morning. [facility] Levothyroxi ne (TIROSINT) 112 mcg capsule 2021-10 205 00:00: 00 05-21 00:00 :00 No [id number] 112ug Take 1 capsule by mouth every morning. [facility] ursodioL 250 mg tablet 2021-0 8-15 00:00: 00 Yes [id number] 500mg Take 2 tablets by mouth in the morning and 2 tablets in the evening. [facility] ursodioL 250 mg tablet 2021-0 8-15 00:00: 00 Yes [id number] 500mg Take 2 tablets by mouth in the morning and 2 tablets in the evening. [facility] ursodioL 250 mg tablet 2021-0 8-15 00:00: 00 Yes [id number] 500mg Take 2 tablets by mouth in the morning and 2 tablets in the evening. [facility] ursodioL 250 mg tablet 2021-0 8-15 00:00: 00 Yes [id number] 500mg Take 2 tablets by mouth in the morning and 2 tablets in the evening. [facility] ursodioL 250 mg tablet 2021-0 8-15 00:00: 00 Yes [id number] 500mg Take 2 tablets by mouth in the morning and 2 tablets in the evening. [facility] ursodioL 250 mg tablet 2021-0 8-15 00:00: 00 Yes [id number] 500mg Take 2 tablets by mouth in the morning and 2 tablets in the evening. [facility] ursodioL 250 mg tablet 2021-0 8-15 00:00: 00 Yes [id number] 500mg Take 2 tablets by mouth in the morning and 2 tablets in the evening. [facility] ursodioL 250 mg tablet 2022-0 8-15 00:00: 00 Yes [id number] 500mg Take 2 tablets by mouth in the morning and 2 tablets in the evening. [facility] ursodioL 250 mg tablet 2022-0 8-15 00:00: 00 Yes [id number] 500mg Take 2 tablets by mouth in the morning and 2 tablets in the evening. [facility] ursodioL 250 mg tablet 2-0 8-15 00:00: 00 Yes [id number] 500mg Take 2 tablets by mouth in the morning and 2 tablets in the evening. [facility] ursodioL 250 mg tablet 2-0 8-15 00:00: 00 Yes [id number] 500mg Take 2 tablets by mouth in the morning and 2 tablets in the evening. [facility] ursodioL 250 mg tablet 2-0 8-15 00:00: 00 Yes [id number] 500mg Take 2 tablets by mouth in the morning and 2 tablets in the evening. [facility] ursodioL 250 mg tablet 2-0 8-15 00:00: 00 Yes [id number] 500mg Take 2 tablets by mouth in the morning and 2 tablets in the evening. [facility] ursodioL 250 mg tablet 2-0 8-15 00:00: 00 Yes [id number] 500mg Take 2 tablets by mouth in the morning and 2 tablets in the evening. [facility] ursodioL 250 mg tablet 2-0 8-15 00:00: 00 Yes [id number] 500mg Take 2 tablets by mouth in the morning and 2 tablets in the evening. [facility] ursodioL 250 mg tablet 2-0 8-15 00:00: 00 Yes [id number] 500mg Take 2 tablets by mouth in the morning and 2 tablets in the evening. [facility] ursodioL 250 mg tablet 2-0 8-15 00:00: 00 Yes [id number] 500mg Take 2 tablets by mouth in the morning and 2 tablets in the evening. [facility] ursodioL 250 mg tablet 2-0 8-15 00:00: 00 Yes [id number] 500mg Take 2 tablets by mouth in the morning and 2 tablets in the evening. [facility] ursodioL 250 mg tablet 2-0 8-15 00:00: 00 Yes [id number] 500mg Take 2 tablets by mouth in the morning and 2 tablets in the evening. [facility] 2021-0 8-15 00:00: 00 Yes [id number] 500mg Take 2 tablets by mouth in the morning and 2 tablets in the evening. [facility] ursodioL 250 mg tablet 2-0 8-15 00:00: 00 Yes [id number] 500mg Take 2 tablets by mouth in the morning and 2 tablets in the evening. [facility] ursodioL 250 mg tablet 2021-0 8-15 00:00: 00 Yes [id number] 500mg Take 2 tablets by mouth in the morning and 2 tablets in the evening. [facility] ursodioL 250 mg tablet 2-0 8-15 00:00: 00 Yes [id number] 500mg Take 2 tablets by mouth in the morning and 2 tablets in the evening. [facility] ursodioL 250 mg tablet 2021-0 8-15 00:00: 00 06-10 00:00 :00 No [id number] 500mg Take 2 tablets by mouth in the morning and 2 tablets in the evening. [facility] ursodioL 250 mg tablet 2021-0 8-15 00:00: 00 06-10 00:00 :00 No [id number] 500mg Take 2 tablets by mouth in the morning and 2 tablets in the evening. [facility] fluticasone propion-alf meteroL 250-50 mcg/dose inhalation disk 2021-0 05-31 12:44: 19 Yes 1 puff [facility] fluticasone propion-alf meteroL 250-50 mcg/dose inhalation disk 2021-0 05-31 12:44: 19 Yes 1 puff [facility] fluticasone propion-alf meteroL 250-50 mcg/dose inhalation disk 2021-0 05-31 12:44: 19 Yes 1 puff [facility] fluticasone propion-alf meteroL 250-50 mcg/dose inhalation disk 2021-0 05-31 12:44: 19 Yes 1 puff [facility] fluticasone propion-alf meteroL 250-50 mcg/dose inhalation disk 202-0 05-31 12:44: 19 Yes 1 puff [facility] fluticasone propion-alf meteroL 250-50 mcg/dose inhalation disk 2021-0 05-31 12:44: 19 Yes 1 puff [facility] fluticasone propion-alf meteroL 250-50 mcg/dose inhalation disk 2021-0 05-31 12:44: 19 Yes 1 puff [facility] fluticasone propion-alf meteroL 250-50 mcg/dose inhalation disk 2021-0 05-31 12:44: 19 Yes 1 puff [facility] fluticasone propion-alf meteroL 250-50 mcg/dose inhalation disk 2021-0 05-31 12:44: 19 Yes 1 puff [facility] fluticasone propion-alf meteroL 250-50 mcg/dose inhalation disk 2021-0 05-31 12:44: 19 Yes 1 puff [facility] fluticasone propion-alf meteroL 250-50 mcg/dose inhalation disk 2021-0 05-31 12:44: 19 Yes 1 puff [facility] fluticasone propion-alf meteroL 250-50 mcg/dose inhalation disk 2021-0 05-31 12:44: 19 Yes 1 puff [facility] fluticasone propion-alf meteroL 250-50 mcg/dose inhalation disk 2021-0 05-31 12:44: 19 Yes 1 puff [facility] ergocalcife rol, vitamin d2, 1,250 mcg (50,000 unit) capsule 2021-0 05-29 00:00: 00 Yes [id number] Take 1 capsule by mouth weekly. [facility] ergocalcife rol, vitamin d2, 1,250 mcg (50,000 unit) capsule 2021-0 8 00:00: 00 Yes [id number] Take 1 capsule by mouth weekly. [facility] ergocalcife rol, vitamin d2, 1,250 mcg (50,000 unit) capsule 0 05-29 00:00: 00 Yes [id number] Take 1 capsule by mouth weekly. [facility] ergocalcife rol, vitamin d2, 1,250 mcg (50,000 unit) capsule 05-29 00:00: 00 Yes [id number] Take 1 capsule by mouth weekly. [facility] ergocalcife rol, vitamin d2, 1,250 mcg (50,000 unit) capsule 05-29 00:00: 00 Yes [id number] Take 1 capsule by mouth weekly. [facility] ergocalcife rol, vitamin d2, 1,250 mcg (50,000 unit) capsule 05-29 00:00: 00 Yes [id number] Take 1 capsule by mouth weekly. [facility] ergocalcife rol, vitamin d2, 1,250 mcg (50,000 unit) capsule 05-29 00:00: 00 Yes [id number] Take 1 capsule by mouth weekly. [facility] ergocalcife rol, vitamin d2, 1,250 mcg (50,000 unit) capsule 05-29 00:00: 00 Yes [id number] Take 1 capsule by mouth weekly. [facility] ergocalcife rol, vitamin d2, 1,250 mcg (50,000 unit) capsule 05-29 00:00: 00 Yes [id number] Take 1 capsule by mouth weekly. [facility] ergocalcife rol, vitamin d2, 1,250 mcg (50,000 unit) capsule 0 05-29 00:00: 00 Yes [id number] Take 1 capsule by mouth weekly. [facility] ergocalcife rol, vitamin d2, 1,250 mcg (50,000 unit) capsule 0 05-29 00:00: 00 Yes [id number] Take 1 capsule by mouth weekly. [facility] ergocalcife rol, vitamin d2, 1,250 mcg (50,000 unit) capsule 0 05-29 00:00: 00 Yes [id number] Take 1 capsule by mouth weekly. [facility] ergocalcife rol, vitamin d2, 1,250 mcg (50,000 unit) capsule 05-29 00:00: 00 Yes [id number] Take 1 capsule by mouth weekly. [facility] ergocalcife rol, vitamin d2, 1,250 mcg (50,000 unit) capsule 05-29 00:00: 00 Yes [id number] Take 1 capsule by mouth weekly. [facility] ergocalcife rol, vitamin d2, 1,250 mcg (50,000 unit) capsule 05-29 00:00: 00 05-21 00:00 :00 No [id number] Take 1 capsule by mouth weekly. [facility] ergocalcife rol, vitamin d2, 1,250 mcg (50,000 unit) capsule 05-29 00:00: 00 05-21 00:00 :00 No [id number] Take 1 capsule by mouth weekly. [facility] ergocalcife rol, vitamin d2, 1,250 mcg (50,000 unit) capsule 05-29 00:00: 00 05-21 00:00 :00 No [id number] Take 1 capsule by mouth weekly. [facility] ergocalcife rol, vitamin d2, 1,250 mcg (50,000 unit) capsule 05-29 00:00: 00 05-21 00:00 :00 No [id number] Take 1 capsule by mouth weekly. [facility] ergocalcife rol, vitamin d2, 1,250 mcg (50,000 unit) capsule 05-29 00:00: 00 05-21 00:00 :00 No [id number] Take 1 capsule by mouth weekly. [facility] ergocalcife rol, vitamin d2, 1,250 mcg (50,000 unit) capsule 05-29 00:00: 00 05-21 00:00 :00 No [id number] Take 1 capsule by mouth weekly. [facility] ergocalcife rol, vitamin d2, 1,250 mcg (50,000 unit) capsule 8-09 00:00: 00 05-21 00:00 :00 No [id number] Take 1 capsule by mouth weekly. [facility] TIROSINT 112 mcg capsule - 00:00: 00 Yes [id number] 112ug Take 1 capsule by mouth every morning. [facility] TIROSINT 112 mcg capsule - 00:00: 00 Yes [id number] 112ug Take 1 capsule by mouth every morning. [facility] TIROSINT 112 mcg capsule 03-08 00:00: 00 09-24 00:00 :00 No [id number] 112ug Take 1 capsule by mouth every morning. [facility] furosemide (LASIX) 20 mg tablet 5-05 00:00: 00 Yes [id number] 20mg Take 1 tablet by mouth daily. [facility] furosemide (LASIX) 20 mg tablet 5-05 00:00: 00 Yes [id number] 20mg Take 1 tablet by mouth daily. [facility] furosemide (LASIX) 20 mg tablet 5-05 00:00: 00 Yes [id number] 20mg Take 1 tablet by mouth daily. [facility] furosemide (LASIX) 20 mg tablet 5-05 00:00: 00 09-27 00:00 :00 No [id number] 20mg Take 1 tablet by mouth daily. [facility] furosemide (LASIX) 20 mg tablet 5-05 00:00: 00 09-27 00:00 :00 No [id number] 20mg Take 1 tablet by mouth daily. [facility] predniSONE 5 mg tablet 0 4-14 00:00: 00 Yes 5mg Take 5 mg by mouth daily. [facility] predniSONE 5 mg tablet 0 4-14 00:00: 00 Yes 5mg Take 5 mg by mouth daily. [facility] predniSONE 5 mg tablet 2022-0 4-14 00:00: 00 Yes 5mg Take 5 mg by mouth daily. [facility] predniSONE 5 mg tablet 2022-0 4-14 00:00: 00 Yes 5mg Take 5 mg by mouth daily. [facility] 20[facility]-0 4-14 00:00: 00 Yes 5mg Take 5 mg by mouth daily. [facility] predniSONE 5 mg tablet 2022-0 4-14 00:00: 00 Yes 5mg Take 5 mg by mouth daily. [facility] predniSONE 5 mg tablet 2022-0 4-14 00:00: 00 Yes 5mg Take 5 mg by mouth daily. [facility] predniSONE 5 mg tablet 2022-0 4-14 00:00: 00 Yes 5mg Take 5 mg by mouth daily. [facility] predniSONE 5 mg tablet 2022-0 4-14 00:00: 00 Yes 5mg Take 5 mg by mouth daily. [facility] predniSONE 5 mg tablet 2022-0 4-14 00:00: 00 Yes 5mg Take 5 mg by mouth daily. [facility] predniSONE 5 mg tablet 2022-0 4-14 00:00: 00 Yes 5mg Take 5 mg by mouth daily. [facility] predniSONE 5 mg tablet 2022-0 4-14 00:00: 00 Yes 5mg Take 5 mg by mouth daily. [facility] predniSONE 5 mg tablet 2022-0 4-14 00:00: 00 Yes 5mg Take 5 mg by mouth daily. [facility] predniSONE 5 mg tablet 2022-0 4-14 00:00: 00 Yes 5mg Take 5 mg by mouth daily. [facility] predniSONE 5 mg tablet 2022-0 4-14 00:00: 00 Yes 5mg Take 5 mg by mouth daily. [facility] predniSONE 5 mg tablet 2022-0 4-14 00:00: 00 Yes 5mg Take 5 mg by mouth daily. [facility] predniSONE 5 mg tablet 2022-0 4-14 00:00: 00 Yes 5mg Take 5 mg by mouth daily. [facility] predniSONE 5 mg tablet 2022-0 4-14 00:00: 00 Yes 5mg Take 5 mg by mouth daily. [facility] pred[facility] mg tablet 2022-0 4-14 00:00: 00 Yes 5mg Take 5 mg by mouth daily. [facility] predniSONE [facility] mg tablet 2022-0 4-14 00:00: 00 Yes 5mg Take 5 mg by mouth daily. [facility] predniSONE 5 mg tablet 2022-0 4-14 00:00: 00 Yes 5mg Take 1 tablet by mouth in the morning. [facility] pred[facility] mg tablet 2022-0 4-14 00:00: 00 Yes 5mg Take 1 tablet by mouth in the morning. [facility] predniSONE 5 mg tablet 2022-0 4-14 00:00: 00 Yes 5mg Take 1 tablet by mouth in the morning. [facility] predniSONE 5 mg tablet 2022-0 4-14 00:00: 00 Yes 5mg Take 1 tablet by mouth in the morning. [facility] predniSONE 5 mg tablet 2022-0 4-14 00:00: 00 Yes 5mg Take 1 tablet by mouth in the morning. [facility] predniSONE 5 mg tablet 2022-0 4-14 00:00: 00 Yes 5mg Take 1 tablet by mouth in the morning. [facility] predniSONE 5 mg tablet 2022-0 4-14 00:00: 00 Yes 5mg Take 1 tablet by mouth in the morning. [facility] predniSONE 5 mg tablet 2022-0 4-14 00:00: 00 Yes 5mg Take 1 tablet by mouth in the morning. [facility] predniSONE 5 mg tablet 2022-0 4-14 00:00: 00 Yes 5mg Take 1 tablet by mouth in the morning. [facility] predniSONE 5 mg tablet 2022-0 4-14 00:00: 00 Yes 5mg Take 1 tablet by mouth in the morning. [facility] predniSONE 5 mg tablet 2022-0 4-14 00:00: 00 Yes 5mg Take 1 tablet by mouth in the morning. [facility] predniSONE 5 mg tablet 2022-0 4-14 00:00: 00 Yes 5mg Take 1 tablet by mouth in the morning. [facility] predniSONE 5 mg tablet 2022-0 4-14 00:00: 00 Yes 5mg Take 1 tablet by mouth in the morning. [facility] predniSONE 5 mg tablet 2022-0 4-14 00:00: 00 Yes 5mg Take 1 tablet by mouth in the morning. [facility] predniSONE 5 mg tablet 2022-0 4-14 00:00: 00 Yes 5mg Take 1 tablet by mouth in the morning. [facility] predniSONE 5 mg tablet 2022-0 4-14 00:00: 00 Yes 5mg Take 1 tablet by mouth in the morning. [facility] predniSONE 5 mg tablet 2022-0 4-14 00:00: 00 Yes 5mg Take 1 tablet by mouth in the morning. [facility] predniSONE 5 mg tablet 2022-0 4-14 00:00: 00 Yes 5mg Take 1 tablet by mouth in the morning. [facility] predniSONE 5 mg tablet 2022-0 4-14 00:00: 00 Yes 5mg Take 1 tablet by mouth in the morning. [facility] predniSONE 5 mg tablet 2-0 4-14 00:00: 00 Yes 5mg Take 1 tablet by mouth in the morning. [facility] predniSONE 5 mg tablet 2-0 4-14 00:00: 00 Yes 5mg Take 1 tablet by mouth in the morning. [facility] predniSONE 5 mg tablet 2-0 4-14 00:00: 00 Yes 5mg Take 1 tablet by mouth in the morning. [facility] ergocalcife rol, vitamin d2, 1,250 mcg (50,000 unit) capsule 2021-0 -07 00:00: 00 - 00:00 :00 No [id number] Take 1 capsule by mouth weekly. [facility] entecavir 0.5 mg tablet 2-0 3-25 00:00: 00 Yes .5mg Take 1 tablet by mouth daily. [facility] entecavir 0.5 mg tablet 2-0 3-25 00:00: 00 Yes .5mg Take 1 tablet by mouth daily. [facility] entecavir 0.5 mg tablet 2-0 3-25 00:00: 00 Yes .5mg Take 1 tablet by mouth daily. [facility] entecavir 0.5 mg tablet 2021-0 3-25 00:00: 00 09-27 00:00 :00 No .5mg Take 1 tablet by mouth daily. [facility] entecavir 0.5 mg tablet 2021-0 3-25 00:00: 00 09-27 00:00 :00 No .5mg Take 1 tablet by mouth daily. [facility] Rosuvastati n Calcium 20 MG Rosuvastati n Calcium 20 MG 2020-0 820 00:00: 00 No 1{table t} QD Rosuvastat in Calcium 20 MG Rosuvastati n Calcium 20 MG Rosuvastati n Calcium 20 MG 2020-0 8-20 00:00: 00 No 1{table t} QD Rosuvastat in Calcium 20 MG SUBOXONE 8-2 mg sublingual film 0 14 00:00: [address] (1) FILM ON THE TONGUE TWICE DAILY. [facility] SUBOXONE 8-2 mg sublingual film 2020-0 14 00:00: [address] (1) FILM ON THE TONGUE TWICE DAILY. [facility] SUBOXONE 8-2 mg sublingual film 2020-0 14 00:00: [address] ONE (1) FILM ON THE TONGUE TWICE DAILY. [facility] SUBOXONE 8-2 mg sublingual film 2020-0 14 00:00: [address] ONE (1) FILM ON THE TONGUE TWICE DAILY. [facility] SUBOXONE 8-2 mg sublingual film 2020-0 -14 00:00: [address] (1) FILM ON THE TONGUE TWICE DAILY. [facility] SUBOXONE 8-2 mg sublingual film 2020-0 6-14 00:00: [address] ONE (1) FILM ON THE TONGUE TWICE DAILY. [facility] SUBOXONE 8-2 mg sublingual film 2020-0 6-14 00:00: [address] ONE (1) FILM ON THE TONGUE TWICE DAILY. [facility] SUBOXONE 8-2 mg sublingual film 1-0 -14 00:00: [address] ONE (1) FILM ON THE TONGUE TWICE DAILY. [facility] SUBOXONE 8-2 mg sublingual film 2020-0 6-14 00:00: [address] ONE (1) FILM ON THE TONGUE TWICE DAILY. [facility] SUBOXONE 8-2 mg sublingual film 2020-0 -14 00:00: [address] ONE (1) FILM ON THE TONGUE TWICE DAILY. [facility] SUBOXONE 8-2 mg sublingual film 2020-0 6-14 00:00: [address] ONE (1) FILM ON THE TONGUE TWICE DAILY. [facility] [place] [facility] SUBOXONE 8-2 mg sublingual film 2020-0 6-14 00:00: [address] ONE (1) FILM ON THE TONGUE TWICE DAILY. [facility] SUBOXONE 8-2 mg sublingual film 2020-0 -14 00:00: [address] ONE (1) FILM ON THE TONGUE TWICE DAILY. [facility] [place] [facility] SUBOXONE 8-2 mg sublingual film 2020-0 -14 00:00: [address] ONE (1) FILM ON THE TONGUE TWICE DAILY. [facility] SUBOXONE 8-2 mg sublingual film 2020-0 -14 00:00: [address] ONE (1) FILM ON THE TONGUE TWICE DAILY. [facility] SUBOXONE 8-2 mg sublingual film 1-0 -14 00:00: [address] ONE (1) FILM ON THE TONGUE TWICE DAILY. [facility] SUBOXONE 8-2 mg sublingual film 1-0 6-14 00:00: [address] ONE (1) FILM ON THE TONGUE TWICE DAILY. [facility] SUBOXONE 8-2 mg sublingual film 1-0 6-14 00:00: [address] ONE (1) FILM ON THE TONGUE TWICE DAILY. [facility] SUBOXONE 8-2 mg sublingual film 1-0 6-14 00:00: [address] ONE (1) FILM ON THE TONGUE TWICE DAILY. [facility] [place] [facility] SUBOXONE 8-2 mg sublingual film 2021-0 6-14 00:00: [address] ONE (1) FILM ON THE TONGUE TWICE DAILY. [facility] SUBOXONE 8-2 mg sublingual film 1-0 6-14 00:00: [address] ONE (1) FILM ON THE TONGUE TWICE DAILY. [facility] SUBOXONE 8-2 mg sublingual film 2021-0 6-14 00:00: [address] ONE (1) FILM ON THE TONGUE TWICE DAILY. [facility] SUBOXONE 8-2 mg sublingual film 2021-0 6-14 00:00: [address] ONE (1) FILM ON THE TONGUE TWICE DAILY. [facility] SUBOXONE 8-2 mg sublingual film 1-0 6-14 00:00: [address] ONE (1) FILM ON THE TONGUE TWICE DAILY. [facility] SUBOXONE 8-2 mg sublingual film 1-0 6-14 00:00: [address] ONE (1) FILM ON THE TONGUE TWICE DAILY. [facility] SUBOXONE 8-2 mg sublingual film 1-0 6-14 00:00: [address] ONE (1) FILM ON THE TONGUE TWICE DAILY. [facility] SUBOXONE 8-2 mg sublingual film 1-0 6-14 00:00: [address] ONE (1) FILM ON THE TONGUE TWICE DAILY. [facility] SUBOXONE 8-2 mg sublingual film 2021-0 6-14 00:00: [address] ONE (1) FILM ON THE TONGUE TWICE DAILY. [facility] SUBOXONE 8-2 mg sublingual film 2021-0 6-14 00:00: [address] ONE (1) FILM ON THE TONGUE TWICE DAILY. [facility] SUBOXONE 8-2 mg sublingual film 1-0 6-14 00:00: [address] ONE (1) FILM ON THE TONGUE TWICE DAILY. [facility] SUBOXONE 8-2 mg sublingual film 2021-0 6-14 00:00: [address] ONE (1) FILM ON THE TONGUE TWICE DAILY. [facility] SUBOXONE 8-2 mg sublingual film 2021-0 6-14 00:00: [address] ONE (1) FILM ON THE TONGUE TWICE DAILY. [facility] SUBOXONE 8-2 mg sublingual film 0 14 00:00: [address] ONE (1) FILM ON THE TONGUE TWICE DAILY. [facility] SUBOXONE 8-2 mg sublingual film 0 04-03 00:00: [address] ONE (1) FILM ON THE TONGUE TWICE DAILY. [facility] SUBOXONE 8-2 mg sublingual film 0 14 00:00: [address] ONE (1) FILM ON THE TONGUE TWICE DAILY. [facility] sublingual film 0 04-03 00:00: [address] ONE (1) FILM ON THE TONGUE TWICE DAILY. [facility] SUBOXONE 8-2 mg sublingual film 0 04-03 00:00: [address] ONE (1) FILM ON THE TONGUE TWICE DAILY. [facility] SUBOXONE 8-2 mg sublingual film 0 04-03 00:00: [address] ONE (1) FILM ON THE TONGUE TWICE DAILY. [facility] SUBOXONE 8-2 mg sublingual film 04-03 00:00: [address] ONE (1) FILM ON THE TONGUE TWICE DAILY. [facility] SUBOXONE 8-2 mg sublingual film 0 04-03 00:00: [address] ONE (1) FILM ON THE TONGUE TWICE DAILY. [facility] SUBOXONE 8-2 mg sublingual film 0 14 00:00: [address] ONE (1) FILM ON THE TONGUE TWICE DAILY. [facility] SUBOXONE 8-2 mg sublingual film 0 14 00:00: [address] ONE (1) FILM ON THE TONGUE TWICE DAILY. [facility] albuterol 2.5 mg /3 mL (0.083 %) nebulizer solution 09 00:00: 00 Yes INHALE ONE (1) VIAL VIA NEBULIZER EVERY DAY. [facility] albuterol 2.5 mg /3 mL (0.083 %) nebulizer solution 03-29 00:00: 00 Yes INHALE ONE (1) VIAL VIA NEBULIZER EVERY DAY. [facility] albuterol 2.5 mg /3 mL (0.083 %) nebulizer solution 03-29 00:00: 00 Yes INHALE ONE (1) VIAL VIA NEBULIZER EVERY DAY. [facility] albuterol 2.5 mg /3 mL (0.083 %) nebulizer solution 03-29 00:00: 00 Yes INHALE ONE (1) VIAL VIA NEBULIZER EVERY DAY. [facility] albuterol 2.5 mg /3 mL (0.083 %) nebulizer solution 03-29 00:00: 00 Yes INHALE ONE (1) VIAL VIA NEBULIZER EVERY DAY. [facility] albuterol 2.5 mg /3 mL (0.083 %) nebulizer solution 03-29 00:00: 00 Yes INHALE ONE (1) VIAL VIA NEBULIZER EVERY DAY. [facility] albuterol 2.5 mg /3 mL (0.083 %) nebulizer solution 03-29 00:00: 00 Yes INHALE ONE (1) VIAL VIA NEBULIZER EVERY DAY. [facility] albuterol 2.5 mg /3 mL (0.083 %) nebulizer solution 03-29 00:00: 00 Yes INHALE ONE (1) VIAL VIA NEBULIZER EVERY DAY. [facility] albuterol 2.5 mg /3 mL (0.083 %) nebulizer solution 03-29 00:00: 00 Yes INHALE ONE (1) VIAL VIA NEBULIZER EVERY DAY. [facility] albuterol 2.5 mg /3 mL (0.083 %) nebulizer solution 03-29 00:00: 00 Yes INHALE ONE (1) VIAL VIA NEBULIZER EVERY DAY. [facility] albuterol 2.5 mg /3 mL (0.083 %) nebulizer solution 03-29 00:00: 00 Yes INHALE ONE (1) VIAL VIA NEBULIZER EVERY DAY. [facility] albuterol 2.5 mg /3 mL (0.083 %) nebulizer solution 03-29 00:00: 00 Yes INHALE ONE (1) VIAL VIA NEBULIZER EVERY DAY. [facility] albuterol 2.5 mg /3 mL (0.083 %) nebulizer solution 03-29 00:00: 00 Yes INHALE ONE (1) VIAL VIA NEBULIZER EVERY DAY. [facility] albuterol 2.5 mg /3 mL (0.083 %) nebulizer solution 03-29 00:00: 00 Yes INHALE ONE (1) VIAL VIA NEBULIZER EVERY DAY. [facility] albuterol 2.5 mg /3 mL (0.083 %) nebulizer solution 03-29 00:00: 00 Yes INHALE ONE (1) VIAL VIA NEBULIZER EVERY DAY. [facility] albuterol 2.5 mg /3 mL (0.083 %) nebulizer solution 03-29 00:00: 00 Yes INHALE ONE (1) VIAL VIA NEBULIZER EVERY DAY. [facility] albuterol 2.5 mg /3 mL (0.083 %) nebulizer solution 03-29 00:00: 00 Yes INHALE ONE (1) VIAL VIA NEBULIZER EVERY DAY. [facility] albuterol 2.5 mg /3 mL (0.083 %) nebulizer solution 03-29 00:00: 00 Yes INHALE ONE (1) VIAL VIA NEBULIZER EVERY DAY. [facility] albuterol 2.5 mg /3 mL (0.083 %) nebulizer solution 03-29 00:00: 00 Yes INHALE ONE (1) VIAL VIA NEBULIZER EVERY DAY. [facility] albuterol 2.5 mg /3 mL (0.083 %) nebulizer solution 03-29 00:00: 00 Yes INHALE ONE (1) VIAL VIA NEBULIZER EVERY DAY. [facility] albuterol 2.5 mg /3 mL (0.083 %) nebulizer solution 03-29 00:00: 00 Yes INHALE ONE (1) VIAL VIA NEBULIZER EVERY DAY. [facility] albuterol 2.5 mg /3 mL (0.083 %) nebulizer solution 03-29 00:00: 00 Yes INHALE ONE (1) VIAL VIA NEBULIZER EVERY DAY. [facility] albuterol 2.5 mg /3 mL (0.083 %) nebulizer solution 03-29 00:00: 00 Yes INHALE ONE (1) VIAL VIA NEBULIZER EVERY DAY. [facility] albuterol 2.5 mg /3 mL (0.083 %) nebulizer solution 03-29 00:00: 00 Yes INHALE ONE (1) VIAL VIA NEBULIZER EVERY DAY. [facility] albuterol 2.5 mg /3 mL (0.083 %) nebulizer solution 03-29 00:00: 00 Yes INHALE ONE (1) VIAL VIA NEBULIZER EVERY DAY. [facility] albuterol 2.5 mg /3 mL (0.083 %) nebulizer solution 03-29 00:00: 00 Yes INHALE ONE (1) VIAL VIA NEBULIZER EVERY DAY. [facility] albuterol 2.5 mg /3 mL (0.083 %) nebulizer solution 03-29 00:00: 00 Yes INHALE ONE (1) VIAL VIA NEBULIZER EVERY DAY. [facility] albuterol 2.5 mg /3 mL (0.083 %) nebulizer solution 03-29 00:00: 00 Yes INHALE ONE (1) VIAL VIA NEBULIZER EVERY DAY. [facility] albuterol 2.5 mg /3 mL (0.083 %) nebulizer solution 03-29 00:00: 00 Yes INHALE ONE (1) VIAL VIA NEBULIZER EVERY DAY. [facility] albuterol 2.5 mg /3 mL (0.083 %) nebulizer solution 03-29 00:00: 00 Yes INHALE ONE (1) VIAL VIA NEBULIZER EVERY DAY. [facility] albuterol 2.5 mg /3 mL (0.083 %) nebulizer solution 03-29 00:00: 00 Yes INHALE ONE (1) VIAL VIA NEBULIZER EVERY DAY. [facility] albuterol 2.5 mg /3 mL (0.083 %) nebulizer solution 03-29 00:00: 00 Yes INHALE ONE (1) VIAL VIA NEBULIZER EVERY DAY. [facility] albuterol 2.5 mg /3 mL (0.083 %) nebulizer solution 03-29 00:00: 00 Yes INHALE ONE (1) VIAL VIA NEBULIZER EVERY DAY. [facility] albuterol 2.5 mg /3 mL (0.083 %) nebulizer solution 03-29 00:00: 00 Yes INHALE ONE (1) VIAL VIA NEBULIZER EVERY DAY. [facility] albuterol 2.5 mg /3 mL (0.083 %) nebulizer solution 03-29 00:00: 00 Yes INHALE ONE (1) VIAL VIA NEBULIZER EVERY DAY. [facility] albuterol 2.5 mg /3 mL (0.083 %) nebulizer solution 03-29 00:00: 00 Yes INHALE ONE (1) VIAL VIA NEBULIZER EVERY DAY. [facility] albuterol 2.5 mg /3 mL (0.083 %) nebulizer solution 03-29 00:00: 00 Yes INHALE ONE (1) VIAL VIA NEBULIZER EVERY DAY. [facility] albuterol 2.5 mg /3 mL (0.083 %) nebulizer solution 03-29 00:00: 00 Yes INHALE ONE (1) VIAL VIA NEBULIZER EVERY DAY. [facility] albuterol 2.5 mg /3 mL (0.083 %) nebulizer solution 03-29 00:00: 00 Yes INHALE ONE (1) VIAL VIA NEBULIZER EVERY DAY. [facility] [place] [facility] albuterol 2.5 mg /3 mL (0.083 %) nebulizer solution 03-29 00:00: 00 Yes INHALE ONE (1) VIAL VIA NEBULIZER EVERY DAY. [facility] albuterol 2.5 mg /3 mL (0.083 %) nebulizer solution 03-29 00:00: 00 Yes INHALE ONE (1) VIAL VIA NEBULIZER EVERY DAY. [facility] albuterol 2.5 mg /3 mL (0.083 %) nebulizer solution 03-29 00:00: 00 Yes INHALE ONE (1) VIAL VIA NEBULIZER EVERY DAY. [facility] esomeprazol e 40 mg capsule 03-24 00:00: 00 Yes 40mg Take 40 mg by mouth daily. [facility] esomeprazol e 40 mg capsule 03-24 00:00: 00 Yes 40mg Take 40 mg by mouth daily. [facility] esomeprazol e 40 mg capsule 03-24 00:00: 00 Yes 40mg Take 40 mg by mouth daily. [facility] esomeprazol e 40 mg capsule 03-24 00:00: 00 09-27 00:00 :00 No 40mg Take 40 mg by mouth daily. [facility] esomeprazol e 40 mg capsule 03-24 00:00: 00 09-27 00:00 :00 No 40mg Take 40 mg by mouth daily. [facility] albuterol 90 mcg/actuati on inhaler 03-18 00:00: 00 Yes INHALE TWO (2) PUFFS BY MOUTH 4 TIMES DAILY NEEDED. [facility] albuterol 90 mcg/actuati on inhaler 03-18 00:00: 00 Yes INHALE TWO (2) PUFFS BY MOUTH 4 TIMES DAILY NEEDED. [facility] albuterol 90 mcg/actuati on inhaler 03-18 00:00: 00 Yes INHALE TWO (2) PUFFS BY MOUTH 4 TIMES DAILY NEEDED. [facility] inhaler 0 03-18 00:00: 00 Yes INHALE TWO (2) PUFFS BY MOUTH 4 TIMES DAILY NEEDED. [facility]/actuati on inhaler 0 03-18 00:00: 00 Yes INHALE TWO (2) PUFFS BY MOUTH 4 TIMES DAILY NEEDED. [facility] mcg/actuati on inhaler 0 03-18 00:00: 00 Yes INHALE TWO (2) PUFFS BY MOUTH 4 TIMES DAILY NEEDED. [facility]/actuati on inhaler 0 03-18 00:00: 00 Yes INHALE TWO (2) PUFFS BY MOUTH 4 TIMES DAILY NEEDED. [facility] mcg/actuati on inhaler 0 03-18 00:00: 00 Yes INHALE TWO (2) PUFFS BY MOUTH 4 TIMES DAILY NEEDED. [facility] al[facility]ol [facility] mcg/actuati on inhaler 0 03-18 00:00: 00 Yes INHALE TWO (2) PUFFS BY MOUTH 4 TIMES DAILY NEEDED. [facility] albuterol 90 mcg/actuati on inhaler 0 03-18 00:00: 00 Yes INHALE TWO (2) PUFFS BY MOUTH 4 TIMES DAILY NEEDED. [facility] albuterol 90 mcg/actuati on inhaler 0 03-18 00:00: 00 Yes INHALE TWO (2) PUFFS BY MOUTH 4 TIMES DAILY NEEDED. [facility] al[facility] mcg/actuati on inhaler 0 03-18 00:00: 00 Yes INHALE TWO (2) PUFFS BY MOUTH 4 TIMES DAILY NEEDED. [facility] mcg/actuati on inhaler 2020-0 03-18 00:00: 00 Yes INHALE TWO (2) PUFFS BY MOUTH 4 TIMES DAILY NEEDED. [facility] al[facility]ol [facility] mcg/actuati on inhaler 0 03-18 00:00: 00 Yes INHALE TWO (2) PUFFS BY MOUTH 4 TIMES DAILY NEEDED. [facility] albuterol 90 mcg/actuati on inhaler 0 03-18 00:00: 00 Yes INHALE TWO (2) PUFFS BY MOUTH 4 TIMES DAILY NEEDED. [facility] albuterol 90 mcg/actuati on inhaler 0 03-18 00:00: 00 Yes INHALE TWO (2) PUFFS BY MOUTH 4 TIMES DAILY NEEDED. [facility] albuterol 90 mcg/actuati on inhaler 0 03-18 00:00: 00 Yes INHALE TWO (2) PUFFS BY MOUTH 4 TIMES DAILY NEEDED. [facility] mcg/actuati on inhaler 0 03-18 00:00: 00 Yes INHALE TWO (2) PUFFS BY MOUTH 4 TIMES DAILY NEEDED. [facility]ol [facility] mcg/actuati on inhaler 0 03-18 00:00: 00 Yes INHALE TWO (2) PUFFS BY MOUTH 4 TIMES DAILY NEEDED. [facility] mcg/actuati on inhaler 0 03-18 00:00: 00 Yes INHALE TWO (2) PUFFS BY MOUTH 4 TIMES DAILY NEEDED. [facility]ol [facility] mcg/actuati on inhaler 0 03-18 00:00: 00 Yes INHALE TWO (2) PUFFS BY MOUTH 4 TIMES DAILY NEEDED. [facility] albuterol 90 mcg/actuati on inhaler 0 03-18 00:00: 00 Yes INHALE TWO (2) PUFFS BY MOUTH 4 TIMES DAILY NEEDED. [facility] mcg/actuati on inhaler 0 03-18 00:00: 00 Yes INHALE TWO (2) PUFFS BY MOUTH 4 TIMES DAILY NEEDED. [facility]ol [facility] mcg/actuati on inhaler 0 03-18 00:00: 00 Yes INHALE TWO (2) PUFFS BY MOUTH 4 TIMES DAILY NEEDED. [facility] albuterol 90 mcg/actuati on inhaler 0 03-18 00:00: 00 Yes INHALE TWO (2) PUFFS BY MOUTH 4 TIMES DAILY NEEDED. [facility] albuterol 90 mcg/actuati on inhaler 0 03-18 00:00: 00 Yes INHALE TWO (2) PUFFS BY MOUTH 4 TIMES DAILY NEEDED. [facility] mcg/actuati on inhaler 0 03-18 00:00: 00 Yes INHALE TWO (2) PUFFS BY MOUTH 4 TIMES DAILY NEEDED. [facility] albuterol 90 mcg/actuati on inhaler 0 03-18 00:00: 00 Yes INHALE TWO (2) PUFFS BY MOUTH 4 TIMES DAILY NEEDED. [facility] mcg/actuati on inhaler 0 03-18 00:00: 00 Yes INHALE TWO (2) PUFFS BY MOUTH 4 TIMES DAILY NEEDED. [facility] mcg/actuati on inhaler 0 03-18 00:00: 00 Yes INHALE TWO (2) PUFFS BY MOUTH 4 TIMES DAILY NEEDED. [facility] mcg/actuati on inhaler 0 03-18 00:00: 00 Yes INHALE TWO (2) PUFFS BY MOUTH 4 TIMES DAILY NEEDED. [facility] mcg/actuati on inhaler 0 03-18 00:00: 00 Yes INHALE TWO (2) PUFFS BY MOUTH 4 TIMES DAILY NEEDED. [facility] albuterol 90 mcg/actuati on inhaler 0 03-18 00:00: 00 Yes INHALE TWO (2) PUFFS BY MOUTH 4 TIMES DAILY NEEDED. [facility] albuterol 90 mcg/actuati on inhaler 0 03-18 00:00: 00 Yes INHALE TWO (2) PUFFS BY MOUTH 4 TIMES DAILY NEEDED. [facility] mcg/actuati on inhaler 0 03-18 00:00: 00 Yes INHALE TWO (2) PUFFS BY MOUTH 4 TIMES DAILY NEEDED. [facility] albuterol 90 mcg/actuati on inhaler 03-18 00:00: 00 Yes INHALE TWO (2) PUFFS BY MOUTH 4 TIMES DAILY NEEDED. [facility] albuterol 90 mcg/actuati on inhaler 03-18 00:00: 00 Yes INHALE TWO (2) PUFFS BY MOUTH 4 TIMES DAILY NEEDED. [facility] albuterol 90 mcg/actuati on inhaler 03-18 00:00: 00 Yes INHALE TWO (2) PUFFS BY MOUTH 4 TIMES DAILY NEEDED. [facility] albuterol 90 mcg/actuati on inhaler 03-18 00:00: 00 Yes INHALE TWO (2) PUFFS BY MOUTH 4 TIMES DAILY NEEDED. [facility] albuterol 90 mcg/actuati on inhaler 03-18 00:00: 00 Yes INHALE TWO (2) PUFFS BY MOUTH 4 TIMES DAILY NEEDED. [facility] albuterol 90 mcg/actuati on inhaler 03-18 00:00: 00 Yes INHALE TWO (2) PUFFS BY MOUTH 4 TIMES DAILY NEEDED. [facility] albuterol 90 mcg/actuati on inhaler 03-18 00:00: 00 Yes INHALE TWO (2) PUFFS BY MOUTH 4 TIMES DAILY NEEDED. [facility] Nexium Nexium 0 8-13 00:00: 00 Yes [place] [place] 1 capsule [facility] Albuterol Sulfate HFA Albuterol Sulfate HFA Yes [facility] [place] 2 puffs as needed [facility] PredniSONE PredniSONE Yes [facility] [place] 1 tablet [facility] Suboxone Suboxone Yes [facility] [place] 1 film under the tongue and allow to dissolve [facility] Advair Diskus Advair Diskus Yes [facility] [place] 1 puff [facility] Albuterol Sulfate Albuterol Sulfate Yes [facility] [place] 3 ml as needed Common [facility] Pepcid Pepcid Yes [facility] [place] 1 tablet at bedtime as needed [facility] Levothyroxi ne Sodium Levothyroxi ne Sodium Yes [facility] [place] 1 tablet on an empty stomach in the morning [facility] Advair Diskus 250-50 MCG/DOSE Advair Diskus 250-50 MCG/DOSE No 1{puff} BID Advair Diskus 250-50 MCG/DOSE NexIUM 40 MG NexIUM 40 MG No 1{capsu le} QD NexIUM 40 MG Sucralfate 1 GM Sucralfate 1 GM No Sucralfate 1 GM Pepcid Pepcid No Pepcid predniSONE 10 MG predniSONE 10 MG No 1{table t} QD predniSONE 10 MG NexIUM 40 MG NexIUM 40 MG No 1{capsu le} QD NexIUM 40 MG Pepcid Pepcid No Pepcid Levothyroxi ne Sodium 125 MCG Levothyroxi ne Sodium 125 MCG No QD Levothyrox ine Sodium 125 MCG Suboxone 8-2 MG Suboxone 8-2 MG No BID Suboxone 8-2 MG Albuterol Sulfate HFA 108 (90 Base) MCG/ACT Albuterol Sulfate HFA 108 (90 Base) MCG/ACT No 2{puffs _as_nee ded} QID Albuterol Sulfate HFA 108 (90 Base) MCG/ACT predniSONE 10 MG predniSONE 10 MG No 1{table t} QD predniSONE 10 MG Sucralfate 1 GM Sucralfate 1 GM No Sucralfate 1 GM Albuterol Sulfate (2.5 MG/3ML) 0.083% Albuterol Sulfate (2.5 MG/3ML) 0.083% No 3{ml_as _needed } TID Albuterol Sulfate (2.5 MG/3ML) 0.083% Advair Diskus 250-50 MCG/DOSE Advair Diskus 250-50 MCG/DOSE No 1{puff} BID Advair Diskus 250-50 MCG/DOSE NexIUM 40 MG NexIUM 40 MG No 1{capsu le} QD NexIUM 40 MG Pepcid Pepcid No Pepcid Levothyroxi ne Sodium 125 MCG Levothyroxi ne Sodium 125 MCG No QD Levothyrox ine Sodium 125 MCG Suboxone 8-2 MG Suboxone 8-2 MG No BID Suboxone 8-2 MG Albuterol Sulfate HFA 108 (90 Base) MCG/ACT Albuterol Sulfate HFA 108 (90 Base) MCG/ACT No 2{puffs _as_nee ded} QID Albuterol Sulfate HFA 108 (90 Base) MCG/ACT predniSONE 10 MG predniSONE 10 MG No 1{table t} QD predniSONE 10 MG Sucralfate 1 GM Sucralfate 1 GM No Sucralfate 1 GM Albuterol Sulfate (2.5 MG/3ML) 0.083% Albuterol Sulfate (2.5 MG/3ML) 0.083% No 3{ml_as _needed } TID Albuterol Sulfate (2.5 MG/3ML) 0.083% Advair Diskus 250-50 MCG/DOSE Advair Diskus 250-50 MCG/DOSE No 1{puff} BID Advair Diskus 250-50 MCG/DOSE Albuterol Sulfate (2.5 MG/3ML) 0.083% Albuterol Sulfate (2.5 MG/3ML) 0.083% No 3{ml_as _needed } TID Albuterol Sulfate (2.5 MG/3ML) 0.083% Albuterol Sulfate HFA 108 (90 Base) MCG/ACT Albuterol Sulfate HFA 108 (90 Base) MCG/ACT No 2{puffs _as_nee ded} QID Albuterol Sulfate HFA 108 (90 Base) MCG/ACT Suboxone 8-2 MG Suboxone 8-2 MG No BID Suboxone 8-2 MG Sucralfate 1 GM Sucralfate 1 GM No Sucralfate 1 GM NexIUM 40 MG NexIUM 40 MG No 1{capsu le} QD NexIUM 40 MG Advair Diskus 250-50 MCG/DOSE Advair Diskus 250-50 MCG/DOSE No 1{puff} BID Advair Diskus 250-50 MCG/DOSE Levothyroxi ne Sodium 75 MCG Levothyroxi ne Sodium 75 MCG No Levothyrox ine Sodium 75 MCG predniSONE 10 MG predniSONE 10 MG No 1{table t} QD predniSONE 10 MG Albuterol Sulfate (2.5 MG/3ML) 0.083% Albuterol Sulfate (2.5 MG/3ML) 0.083% No 3{ml_as _needed } TID Albuterol Sulfate (2.5 MG/3ML) 0.083% Albuterol Sulfate HFA 108 (90 Base) MCG/ACT Albuterol Sulfate HFA 108 (90 Base) MCG/ACT No 2{puffs _as_nee ded} QID Albuterol Sulfate HFA 108 (90 Base) MCG/ACT Suboxone 8-2 MG Suboxone 8-2 MG No BID Suboxone 8-2 MG Sucralfate 1 GM Sucralfate 1 GM No Sucralfate 1 GM NexIUM 40 MG NexIUM 40 MG No 1{capsu le} QD NexIUM 40 MG Advair Diskus 250-50 MCG/DOSE Advair Diskus 250-50 MCG/DOSE No 1{puff} BID Advair Diskus 250-50 MCG/DOSE Levothyroxi ne Sodium 75 MCG Levothyroxi ne Sodium 75 MCG No Levothyrox ine Sodium 75 MCG predniSONE 10 MG predniSONE 10 MG No 1{table t} QD predniSONE 10 MG Advair Diskus 250-50 MCG/DOSE Advair Diskus 250-50 MCG/DOSE No 1{puff} BID Advair Diskus 250-50 MCG/DOSE Sucralfate 1 GM Sucralfate 1 GM No Sucralfate 1 GM Albuterol Sulfate HFA 108 (90 Base) MCG/ACT Albuterol Sulfate HFA 108 (90 Base) MCG/ACT No 2{puffs _as_nee ded} QID Albuterol Sulfate HFA 108 (90 Base) MCG/ACT Suboxone 8-2 MG Suboxone 8-2 MG No BID Suboxone 8-2 MG predniSONE 10 MG predniSONE 10 MG No 1{table t} QD predniSONE 10 MG Albuterol Sulfate (2.5 MG/3ML) 0.083% Albuterol Sulfate (2.5 MG/3ML) 0.083% No 3{ml_as _needed } TID Albuterol Sulfate (2.5 MG/3ML) 0.083% Levothyroxi ne Sodium 100 MCG Levothyroxi ne Sodium 100 MCG No QD Levothyrox ine Sodium 100 MCG NexIUM 40 MG NexIUM 40 MG No 1{capsu le} QD NexIUM 40 MG Sucralfate 1 GM Sucralfate 1 GM No Sucralfate 1 GM Suboxone 8-2 MG Suboxone 8-2 MG No BID Suboxone 8-2 MG Pepcid Pepcid No Pepcid Levothyroxi ne Sodium 100 MCG Levothyroxi ne Sodium 100 MCG No QD Levothyrox ine Sodium 100 MCG Albuterol Sulfate HFA 108 (90 Base) MCG/ACT Albuterol Sulfate HFA 108 (90 Base) MCG/ACT No 2{puffs _as_nee ded} QID Albuterol Sulfate HFA 108 (90 Base) MCG/ACT Albuterol Sulfate (2.5 MG/3ML) 0.083% Albuterol Sulfate (2.5 MG/3ML) 0.083% No 3{ml_as _needed } TID Albuterol Sulfate (2.5 MG/3ML) 0.083% Advair Diskus 250-50 MCG/DOSE Advair Diskus 250-50 MCG/DOSE No 1{puff} BID Advair Diskus 250-50 MCG/DOSE NexIUM 40 MG NexIUM 40 MG No 1{capsu le} QD NexIUM 40 MG predniSONE 10 MG predniSONE 10 MG No 1{table t} QD predniSONE 10 MG Levothyroxi ne Sodium 75 MCG Levothyroxi ne Sodium 75 MCG No QD Levothyrox ine Sodium 75 MCG Albuterol Sulfate (2.5 MG/3ML) 0.083% Albuterol Sulfate (2.5 MG/3ML) 0.083% No 3{ml_as _needed } TID Albuterol Sulfate (2.5 MG/3ML) 0.083% Albuterol Sulfate HFA 108 (90 Base) MCG/ACT Albuterol Sulfate HFA 108 (90 Base) MCG/ACT No 2{puffs _as_nee ded} QID Albuterol Sulfate HFA 108 (90 Base) MCG/ACT Suboxone 8-2 MG Suboxone 8-2 MG No BID Suboxone 8-2 MG Immunizations Ordered Immunization Name Filled Immunization Name Date Status Comments Source SARS-COV-2 COVID-19 PFIZER VACCINE 2021-05-19 00:00:00 Completed [facility] SARS-COV-2 COVID-19 PFIZER VACCINE 2021-05-19 00:00:00 Completed [facility] SARS-COV-2 COVID-19 PFIZER VACCINE 2021-05-19 00:00:00 Completed [facility] SARS-COV-2 COVID-19 PFIZER VACCINE 2021-05-19 00:00:00 Completed [facility] SARS-COV-2 COVID-19 PFIZER VACCINE 2021-05-19 00:00:00 Completed [facility] SARS-COV-2 COVID-19 PFIZER VACCINE 2021-05-19 00:00:00 Completed [facility] SARS-COV-2 COVID-19 PFIZER VACCINE 2021-05-19 00:00:00 Completed [facility] SARS-COV-2 COVID-19 PFIZER VACCINE 2021-05-19 00:00:00 Completed [facility] SARS-COV-2 COVID-19 PFIZER VACCINE 2021-05-19 00:00:00 Completed [facility] SARS-COV-2 COVID-19 PFIZER VACCINE 2021-05-19 00:00:00 Completed [facility] SARS-COV-2 COVID-19 PFIZER VACCINE 2021-05-19 00:00:00 Completed [facility] SARS-COV-2 COVID-19 PFIZER VACCINE 2021-05-19 00:00:00 Completed [facility] SARS-COV-2 COVID-19 PFIZER VACCINE 2021-05-19 00:00:00 Completed [facility] SARS-COV-2 COVID-19 PFIZER VACCINE 2021-05-19 00:00:00 Completed [facility] SARS-COV-2 COVID-19 PFIZER VACCINE 2021-05-19 00:00:00 Completed [facility] SARS-COV-2 COVID-19 PFIZER VACCINE 2021-05-19 00:00:00 Completed [facility] SARS-COV-2 COVID-19 PFIZER VACCINE 2021-05-19 00:00:00 Completed [facility] SARS-COV-2 COVID-19 PFIZER VACCINE 2021-05-19 00:00:00 Completed [facility] SARS-COV-2 COVID-19 PFIZER VACCINE 2021-05-19 00:00:00 Completed [facility] SARS-COV-2 COVID-19 PFIZER VACCINE 2021-05-19 00:00:00 Completed [facility] SARS-COV-2 COVID-19 PFIZER VACCINE 2021-05-19 00:00:00 Completed [facility] SARS-COV-2 COVID-19 PFIZER VACCINE 2021-05-19 00:00:00 Completed [facility] SARS-COV-2 COVID-19 PFIZER VACCINE 2021-05-19 00:00:00 Completed [facility] SARS-COV-2 COVID-19 PFIZER VACCINE 2021-05-19 00:00:00 Completed [facility] Pfizer COVID-19 Vaccine Pfizer COVID-19 Vaccine 2021-05-11 13:33:00 Completed [facility] Pfizer COVID-19 Vaccine Pfizer COVID-19 Vaccine 2021-05-11 13:33:00 Completed [facility] Pfizer COVID-19 Vaccine Pfizer COVID-19 Vaccine 2021-04-20 16:12:00 Completed [facility] Pfizer COVID-19 Vaccine Pfizer COVID-19 Vaccine 2021-04-20 16:12:00 Completed [facility] Pfizer COVID-19 Vaccine Pfizer COVID-19 Vaccine 2021-04-20 16:12:00 Completed [facility] Pfizer COVID-19 Vaccine Pfizer COVID-19 Vaccine 2021-04-20 16:12:00 Completed [facility] SARS-COV-2 COVID-19 PFIZER VACCINE 2021-04-20 00:00:00 Completed [facility] SARS-COV-2 COVID-19 PFIZER VACCINE 2021-04-20 00:00:00 Completed [facility] SARS-COV-2 COVID-19 PFIZER VACCINE 2021-04-20 00:00:00 Completed [facility] SARS-COV-2 COVID-19 PFIZER VACCINE 2021-04-20 00:00:00 Completed [facility] SARS-COV-2 COVID-19 PFIZER VACCINE 2021-04-20 00:00:00 Completed [facility] SARS-COV-2 COVID-19 PFIZER VACCINE 2021-04-20 00:00:00 Completed [facility] SARS-COV-2 COVID-19 PFIZER VACCINE 2021-04-20 00:00:00 Completed [facility] SARS-COV-2 COVID-19 PFIZER VACCINE 2021-04-20 00:00:00 Completed [facility] SARS-COV-2 COVID-19 PFIZER VACCINE 2021-04-20 00:00:00 Completed [facility] SARS-COV-2 COVID-19 PFIZER VACCINE 2021-04-20 00:00:00 Completed [facility] SARS-COV-2 COVID-19 PFIZER VACCINE 2021-04-20 00:00:00 Completed [facility] SARS-COV-2 COVID-19 PFIZER VACCINE 2021-04-20 00:00:00 Completed [facility] SARS-COV-2 COVID-19 PFIZER VACCINE 2021-04-20 00:00:00 Completed [facility] SARS-COV-2 COVID-19 PFIZER VACCINE 2021-04-20 00:00:00 Completed [facility] SARS-COV-2 COVID-19 PFIZER VACCINE 2021-04-20 00:00:00 Completed [facility] SARS-COV-2 COVID-19 PFIZER VACCINE 2021-04-20 00:00:00 Completed [facility] SARS-COV-2 COVID-19 PFIZER VACCINE 2021-04-20 00:00:00 Completed [facility] SARS-COV-2 COVID-19 PFIZER VACCINE 2021-04-20 00:00:00 Completed [facility] SARS-COV-2 COVID-19 PFIZER VACCINE 2021-04-20 00:00:00 Completed [facility] SARS-COV-2 COVID-19 PFIZER VACCINE 2021-04-20 00:00:00 Completed [facility] SARS-COV-2 COVID-19 PFIZER VACCINE 2021-04-20 00:00:00 Completed [facility] SARS-COV-2 COVID-19 PFIZER VACCINE 2021-04-20 00:00:00 Completed [facility] SARS-COV-2 COVID-19 PFIZER VACCINE 2021-04-20 00:00:00 Completed [facility] SARS-COV-2 COVID-19 PFIZER VACCINE 2021-04-20 00:00:00 Completed [facility] SARS-COV-2 COVID-19 PFIZER VACCINE Unknown Completed [facility] SARS-COV-2 COVID-19 PFIZER VACCINE Unknown Completed [facility] SARS-COV-2 COVID-19 PFIZER VACCINE Unknown Completed [facility] SARS-COV-2 COVID-19 PFIZER VACCINE Unknown Completed [facility] SARS-COV-2 COVID-19 PFIZER VACCINE Unknown Completed [facility] SARS-COV-2 COVID-19 PFIZER VACCINE Unknown Completed [facility] SARS-COV-2 COVID-19 PFIZER VACCINE Unknown Completed [facility] SARS-COV-2 COVID-19 PFIZER VACCINE Unknown Completed [facility] SARS-COV-2 COVID-19 PFIZER VACCINE Unknown Completed [facility] SARS-COV-2 COVID-19 PFIZER VACCINE Unknown Completed [facility] SARS-COV-2 COVID-19 PFIZER VACCINE Unknown Completed [facility] SARS-COV-2 COVID-19 PFIZER VACCINE Unknown Completed [facility] SARS-COV-2 COVID-19 PFIZER VACCINE Unknown Completed [facility] SARS-COV-2 COVID-19 PFIZER VACCINE Unknown Completed [facility] SARS-COV-2 COVID-19 PFIZER VACCINE Unknown Completed [facility] SARS-COV-2 COVID-19 PFIZER VACCINE Unknown Completed [facility] SARS-COV-2 COVID-19 PFIZER VACCINE Unknown Completed [facility] SARS-COV-2 COVID-19 PFIZER VACCINE Unknown Completed [facility] SARS-COV-2 COVID-19 PFIZER VACCINE Unknown Completed [facility] SARS-COV-2 COVID-19 PFIZER VACCINE Unknown Completed [facility] SARS-COV-2 COVID-19 PFIZER VACCINE Unknown Completed [facility] SARS-COV-2 COVID-19 PFIZER VACCINE Unknown Completed [facility] Pfizer COVID-19 Vaccine Pfizer COVID-19 Vaccine Unknown Completed [facility] Pfizer COVID-19 Vaccine Pfizer COVID-19 Vaccine Unknown Completed [facility] Pfizer COVID-19 Vaccine Pfizer COVID-19 Vaccine Unknown Completed [facility] Pfizer COVID-19 Vaccine Pfizer COVID-19 Vaccine Unknown Completed [facility] Vital Signs Vital Name Observation Time Observation Value Comments S ource Systolic blood pressure 2023-12-26 19:33:00 129 mm[Hg] [facility] Diastolic blood pressure 2023-12-26 19:33:00 85 mm[Hg] [facility] Heart rate 2023-12-26 19:33:00 80 /min [facility] Body temperature 2023-12-26 19:33:00 36.72 Yessi [facility] Body height 2023-12-26 19:33:00 162.6 cm [facility] Body weight 2023-12-26 19:33:00 65.998 kg [facility] BMI 2023-12-26 19:33:00 24.98 kg/m2 [facility] Oxygen saturation in Arterial blood by Pulse oximetry 2023-12-26 19:33:00 94 /min [facility] Systolic blood pressure 2023-11-19 21:26:00 138 mm[Hg] [facility] [facility] Diastolic blood pressure 2023-11-19 21:26:00 80 mm[Hg] [facility] Heart rate 2023-11-19 21:26:00 87 /min [facility] Body height 2023-11-19 21:26:00 162.6 cm [facility] Body weight 2023-11-19 21:26:00 64.728 kg [facility] BMI 2023-11-19 21:26:00 24.49 kg/m2 [facility] Oxygen saturation in Arterial blood by Pulse oximetry 2023-11-19 21:26:00 95 /min [facility] height 2023-11-07 13:00:00 64 [in_i] [facility] weight 2023-11-07 13:00:00 141.8 [lb_av] [facility] temperature 2023-11-07 13:00:00 97.2 [degF] [facility] bmi 2023-11-07 13:00:00 24.34 kg/m2 [facility] oximetry 2023-11-07 13:00:00 95 % [facility] respiratory rate 2023-11-07 13:00:00 16 /min [facility] blood pressure systolic 2023-11-07 13:00:00 149 mm[Hg] [facility] blood pressure diastolic 2023-11-07 13:00:00 73 mm[Hg] [facility] Systolic blood pressure 2023-05-30 15:25:00 132 mm[Hg] [facility] Diastolic blood pressure 2023-05-30 15:25:00 85 mm[Hg] [facility] Heart rate 2023-05-30 15:25:00 78 /min [facility] Body temperature 2023-05-30 15:25:00 36.44 Yessi [facility] Body height 2023-05-30 15:25:00 162.6 cm [facility] Body weight 2023-05-30 15:25:00 67.405 kg [facility] BMI 2023-05-30 15:25:00 25.51 kg/m2 [facility] Oxygen saturation in Arterial blood by Pulse oximetry 2023-05-30 15:25:00 93 /min [facility] Systolic blood pressure 2023-05-21 19:23:00 136 mm[Hg] [facility] Diastolic blood pressure 2023-05-21 19:23:00 91 mm[Hg] [facility] Heart rate 2023-05-21 19:15:00 73 /min [facility] Body height 2023-05-21 19:15:00 162.6 cm [facility] Body weight 2023-05-21 19:15:00 67.178 kg [facility] BMI 2023-05-21 19:15:00 25.42 kg/m2 [facility] Oxygen saturation in Arterial blood by Pulse oximetry 2023-05-21 19:15:00 94 /min [facility] Systolic blood pressure 2023-04-23 22:00:00 143 mm[Hg] [facility] Diastolic blood pressure 2023-04-23 22:00:00 103 mm[Hg] [facility] Heart rate 2023-04-23 22:00:00 71 /min [facility] Respiratory rate 2023-04-23 22:00:00 11 /min [facility] Oxygen saturation in Arterial blood by Pulse oximetry 2023-04-23 22:00:00 94 /min [facility] Body temperature 2023-04-23 20:05:00 37.11 Yessi [facility] Body weight 2023-04-23 20:05:00 66.225 kg [facility] BMI 2023-04-23 20:05:00 25.06 kg/m2 [facility] Systolic blood pressure 2023-01-31 17:36:00 123 mm[Hg] [facility] Diastolic blood pressure 2023-01-31 17:36:00 90 mm[Hg] [facility] Heart rate 2023-01-31 17:36:00 90 /min [facility] Body temperature 2023-01-31 17:36:00 35.56 Yessi [facility] Body height 2023-01-31 17:36:00 162.6 cm [facility] Body weight 2023-01-31 17:36:00 66.996 kg [facility] BMI 2023-01-31 17:36:00 25.35 kg/m2 [facility] Oxygen saturation in Arterial blood by Pulse oximetry 2023-01-31 17:36:00 92 /min [facility] Systolic blood pressure 2022-09-27 18:02:00 136 mm[Hg] [facility] Diastolic blood pressure 2022-09-27 18:02:00 82 mm[Hg] [facility] Heart rate 2022-09-27 18:02:00 74 /min [facility] Body temperature 2022-09-27 18:02:00 36 Yessi [facility] Respiratory rate 2022-09-27 18:02:00 18 /min [facility] Body height 2022-09-27 18:02:00 162.6 cm [facility] Body weight 2022-09-27 18:02:00 68.266 kg [facility] BMI 2022-09-27 18:02:00 25.83 kg/m2 [facility] Oxygen saturation in Arterial blood by Pulse oximetry 2022-09-27 18:02:00 96 /min [facility] Systolic blood pressure 2022-05-29 20:49:00 130 mm[Hg] [facility] Diastolic blood pressure 2022-05-29 20:49:00 82 mm[Hg] [facility] Heart rate 2022-05-29 20:49:00 101 /min [facility] Body height 2022-05-29 20:49:00 162.6 cm [facility] Body weight 2022-05-29 20:49:00 69.083 kg [facility] BMI 2022-05-29 20:49:00 26.14 kg/m2 [facility] Oxygen saturation in Arterial blood by Pulse oximetry 2022-05-29 20:49:00 88 /min with O2 @ 2L [facility] height 2022-01-08 13:20:00 64 [in_i] [facility] weight 2022-01-08 13:20:00 170 [lb_av] [facility] temperature 2022-01-08 13:20:00 98.2 [degF] [facility] bmi 2022-01-08 13:20:00 29.18 kg/m2 [facility] oximetry 2022-01-08 13:20:00 100 % [facility] respiratory rate 2022-01-08 13:20:00 20 /min [facility] blood pressure systolic 2022-01-08 13:20:00 115 mm[Hg] [facility] blood pressure diastolic 2022-01-08 13:20:00 65 mm[Hg] [facility] height 2021-10-05 13:40:00 64 [in_i] [facility] weight 2021-10-05 13:40:00 160.6 [lb_av] [facility] temperature 2021-10-05 13:40:00 97.3 [degF] [facility] bmi 2021-10-05 13:40:00 27.56 kg/m2 [facility] oximetry 2021-10-05 13:40:00 93 % [facility] respiratory rate 2021-10-05 13:40:00 18 /min [facility] blood pressure systolic 2021-10-05 13:40:00 138 mm[Hg] [facility] blood pressure diastolic 2021-10-05 13:40:00 73 mm[Hg] [facility] height 2021-04-19 14:20:00 64 [in_i] [facility] weight 2021-04-19 14:20:00 161 [lb_av] [facility] temperature 2021-04-19 14:20:00 97.6 [degF] [facility] bmi 2021-04-19 14:20:00 27.63 kg/m2 [facility] oximetry 2021-04-19 14:20:00 92 % [facility] respiratory rate 2021-04-19 14:20:00 18 /min [facility] blood pressure systolic 2021-04-19 14:20:00 118 mm[Hg] [facility] blood pressure diastolic 2021-04-19 14:20:00 63 mm[Hg] [facility] Procedures Procedure Date / Time Performed Performing Clinician Source [facility] PATIENT FINANCIAL POLICY 2024-01-07 20:25:30 Doctor Unassigned, [place] [facility] US ABDOMEN LIMITED 2023-07-01 21:36:11 Clifford Randhawa [facility] CT ANGIOGRAM ABDOMEN/PELVIS 2023-04-23 21:07:10 Wilfrid Mcallister [facility] URINALYSIS 2023-04-23 20:37:00 Wilfrid Mcallister [facility] ASSIGNMENT OF BENEFITS 2023-04-23 20:33:38 Docto r Unassigned, [place] [facility] CONSENT/REFUSAL FOR DIAGNOSIS AND TREATMENT 2023-04-23 20:33:19 Doctor Unassigned, [place] [facility] AMMONIA, PLASMA 2023-04-23 20:21:00 [facility] COMP. METABOLIC PANEL ([id number]) 2023-04-23 20:21:00 Wilfrid Mcallister [facility] CBC WITH DIFF 2023-04-23 20:21:00 Wilfrid Mcallister [facility] PROTHROMBIN TIME / INR 2023-04-23 20:21:00 Sage Mcallister [facility] CT ABDOMEN PELVIS W CONTRAST 2023-02-07 18:47:08 Louis Arora [facility] ASSIGNMENT OF BENEFITS 2023-02-07 17:44:14 Docto r Unassigned, [place] [facility] US ABDOMEN LIMITED 2022-12-26 20:11:[address] [facility] CONSENT/REFUSAL FOR DIAGNOSIS AND TREATMENT 2022-12-26 19:21:10 Doctor Unassigned, [place] [facility] ASSIGNMENT OF BENEFITS 2022-12-26 19:20:36 Docto r Unassigned, [place] [facility] US ABDOMEN LIMITED 2022-07-02 19:09:22 Louis Arora [facility] CONSENT/REFUSAL FOR DIAGNOSIS AND TREATMENT 2022-07-02 18:01:49 Doctor Unassigned, [place] [facility] ASSIGNMENT OF BENEFITS 2022-07-02 18:00:35 Docto r Unassigned, [place] [facility] Encounters Start Date/Time End Date/Time Encounter Type Admission Type Attending [facility] Facility Care Department Encounter ID Source 2022-01-04 09:58:00 [place] [facility] [id number] [facility] 2021-11-15 14:25:58 Outpatient Herber Edgar [facility] [id number] [facility] 2021-11-15 14:24:50 Outpatient BobyHerber [facility] [id number] [facility] 2021-11-15 11:36:50 Outpatient Herber Edgar [facility] [id number] [facility] 2021-11-15 11:07:36 Outpatient BobyHerber [facility] [id number] [facility] 2021-11-15 11:01:29 Outpatient Herber Edgar [facility] [id number] [facility] 2021-11-15 11:01:16 [facility] [id number] [facility] 2024-07-02 13:30:00 2024-07-02 13:30:00 Outpatient R LOUIS ARORA [facility] [id number] [facility] 2024-01-07 15:25:25 2024-01-07 23:59:00 Hospital Encounter Louis Arora [facility] 1..840.114 350.1.13.10 4.2.7.2.686 [id number] [facility] 2024-01-07 00:00:00 2024-01-07 23:59:00 [facility] [id number] [facility] 2024-01-02 16:20:00 2024-01-02 16:20:00 Outpatient R DAVID ARORAHIF [facility] [id number] [facility] 2023-12-26 14:45:00 2023-12-26 15:00:00 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, [facility] Ortiz [facility] ..840.114 350.1.13.10 4.2.7.2.686 [id number] [facility] 2023-12-26 13:30:00 2023-12-26 14:37:23 Outpatient R ABDI [facility] [id number] [facility] 2023-12-26 13:30:00 2023-12-26 14:37:23 Office Visit Ortiz [facility] [place] [facility] ..840.114 350.1.13.10 4.2.7.2.686 [id number] [facility] 2023-12-19 00:00:00 2023-12-19 00:00:00 Telephone Kiran [facility] 1..840.114 350.1.13.10 4.2.7.2.686 [id number] [facility] 2023-12-18 00:00:00 2023-12-18 00:00:00 [facility] 1..840.114 350.1.13.10 4.2.7.2.686 [id number] [facility] 2023-11-19 16:15:00 2023-11-19 16:30:00 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, Ang - Raj Kiran [facility] 1..840.114 350.1.13.10 4.2.7.2.686 [id number] [facility] 2023-11-19 15:30:00 2023-11-19 16:10:52 Outpatient R KIRAN [facility] [id number] [facility] 2023-11-19 15:30:00 2023-11-19 16:10:52 Office Visit Kiran [facility] 1..840.114 350.1.13.10 4.2.7.2.686 [id number] [facility] 2023-11-11 00:00:00 2023-11-11 00:00:00 (TEL) STLMLC STLMLC [id number] [facility] 2023-11-07 00:00:00 2023-11-07 00:00:00 OFFICE VISIT ESTAB PT LEVEL 3 STLMLC STLMLC [id number] [facility] 2023-10-11 00:00:00 2023-10-11 00:00:00 [facility] 1.2840.114 350.1.13.10 4.2.7.2.686 [id number] [facility] 2023-09-28 00:00:00 2023-09-28 00:00:00 Chacho Arora [facility] 1.2840.114 350.1.13.10 4.2.7.2.686 [id number] [facility] 2023-08-29 12:30:00 2023-08-29 12:30:00 [facility] [id number] 2023-07-04 00:00:00 2023-07-04 00:00:00 Telephone Yaneli [facility] 1.84.114 350.1.13.10 4.2.7.2.686 [id number] [facility] 2023-07-01 15:16:17 2023-07-01 23:59:00 Outpatient R DAVID ARORAHIF [facility] [id number] [facility] 2023-07-01 15:16:17 2023-07-01 23:59:00 Hospital Encounter David Arorahif [facility] 1.2.114 350.1.13.10 4.2.7.2.686 [id number] [facility] 2023-07-01 16:00:00 2023-07-01 16:15:00 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, Gilbert Barakat [facility] 1..84.114 350.1.13.10 4.2.7.2.686 [id number] [facility] 2023-06-25 00:00:00 2023-06-25 00:00:00 Telephone Yaneli [facility] 1.284.114 350.1.13.10 4.2.7.2.686 [id number] [facility] 2023-06-06 15:02:27 2023-06-06 23:59:00 Outpatient R YANELI [facility] [id number] [facility] 2023-06-06 15:02:27 2023-06-06 23:59:00 Hospital Encounter Yaneli [facility] 1.2840.114 350.1.13.10 4.2.7.2.686 [id number] [facility] 2023-05-30 12:30:00 2023-05-30 12:45:00 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 1.2840.114 350.1.13.10 4.2.7.2.686 [id number] [facility] 2023-05-30 11:00:00 2023-05-30 11:30:00 Office Visit [facility] AT [facility] 1.2840.114 350.1.13.10 4.2.7.2.686 [id number] [facility] 2023-05-30 11:00:00 2023-05-30 11:00:00 Outpatient R ORTIZ [facility] [id number] [facility] 2023-05-21 15:00:00 2023-05-21 15:38:09 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, Ang - Db Yaneli [facility] 1.284.114 350.1.13.10 4.2.7.2.686 [id number] [facility] 2023-05-21 14:30:00 2023-05-21 14:59:26 Outpatient R MICHELLE BARAKAT [facility] [id number] [facility] 2023-05-21 14:30:00 2023-05-21 14:59:26 Office Visit OmidDino steinberga [facility] 1.840.114 350.1.13.10 4.2.7.2.686 [id number] [facility] 2023-04-29 15:15:00 2023-04-29 15:15:00 Outpatient R BALDO CERVANTES MITCHELL [facility] [id number] [facility] 2023-04-25 16:00:00 2023-04-25 16:29:09 Outpatient R KARIE PERKINS [facility] [id number] [facility] 2023-04-23 15:03:00 2023-04-23 18:39:00 Emergency X MCALLISTERWILFRID OAKES [facility] ERT [id number] [facility] 2023-04-23 15:03:00 2023-04-23 18:39:00 Emergency McallisterWilfrid oakes [facility] 1.840.114 350.1.13.10 4.2.7.2.686 [id number] [facility] 2023-04-16 11:00:00 2023-04-16 11:00:00 Outpatient R GEETHA RAINES [facility] [id number] [facility] 2023-02-13 00:00:00 2023-02-13 00:00:00 Telephone Louis Arora [facility] 1.840.114 350.1.13.10 4.2.7.2.686 [id number] [facility] 2023-02-07 12:45:32 2023-02-07 23:59:00 Outpatient R LOUIS ARORA [facility] [id number] [facility] 2023-02-07 12:45:32 2023-02-07 23:59:00 Hospital Encounter Louis Arora [facility] 1.2.840.114 350.1.13.10 4.2.7.2.686 [id number] [facility] 2023-02-07 00:00:00 2023-02-07 00:00:00 Orders Only Doctor Unassigned, [place] [facility] 1.2.840.114 350.1.13.10 4.2.7.2.686 [id number] [facility] 2023-01-31 14:30:00 2023-01-31 14:45:00 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, [facility] 1.2.840.114 350.1.13.10 4.2.7.2.686 [id number] [facility] 2023-01-31 13:30:00 2023-01-31 14:00:00 [facility] 1.2.840.114 350.1.13.10 4.2.7.2.686 [id number] [facility] 2023-01-31 13:30:00 2023-01-31 13:30:00 Outpatient R LOUIS ARORA [facility] [id number] [facility] 2022-12-26 13:21:33 2022-12-26 23:59:00 Outpatient R LOUIS ARORA [facility] [id number] [facility] 2022-12-26 13:21:33 2022-12-26 23:59:00 Hospital Encounter AroraLouis [facility] 1.2.840.114 350.1.13.10 4.2.7.2.686 [id number] [facility] 2022-11-13 16:00:00 2022-11-13 16:00:00 Outpatient R HANNAH MENON [facility] [id number] [facility] 2022-09-27 13:30:00 2022-09-27 13:45:00 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, [facility] [facility] 1.2840.114 350.1.13.10 4.2.7.2.686 [id number] [facility] 2022-09-27 13:00:00 2022-09-27 13:30:00 Office Visit Ortiz [facility] AT [facility] 1.2840.114 350.1.13.10 4.2.7.2.686 [id number] [facility] 2022-09-27 13:00:00 2022-09-27 13:00:00 [facility] [id number] [facility] 2022-09-24 00:00:00 2022-09-24 00:00:00 Telephone KiranHannah [facility] 1.2.840.114 350.1.13.10 4.2.7.2.686 [id number] [facility] 2022-07-02 13:02:05 2022-07-02 23:59:00 Outpatient R ARORA, [facility] [id number] [facility] 2022-07-02 13:00:00 2022-07-02 23:59:00 Hospital Encounter Ortiz Louis [facility] 1.2.840.114 350.1.13.10 4.2.7.2.686 [id number] [facility] 2022-07-02 00:00:00 2022-07-02 00:00:00 Outpatient R LOUIS ARORA [facility] [id number] [facility] 2022-06-08 00:00:00 2022-06-08 00:00:00 Telephone Arora, [facility] [facility] 1.2.840.114 350.1.13.10 4.2.7.2.686 [id number] [facility] 2022-06-04 00:00:00 2022-06-04 00:00:00 Telephone [facility] AT [facility] 1.2.840.114 350.1.13.10 4.2.7.2.686 [id number] [facility] 2022-05-31 13:45:00 2022-05-31 14:00:00 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, [facility] Ortiz [facility] AT [facility] 1.2.840.114 350.1.13.10 4.2.7.2.686 [id number] [facility] 2022-05-31 13:45:00 2022-05-31 13:45:00 Outpatient R LOUIS ARORA [facility] [id number] [facility] 2022-05-31 13:00:00 2022-05-31 13:30:00 [facility] 1.2.840.114 350.1.13.10 4.2.7.2.686 [id number] [facility] 2022-05-31 13:00:00 2022-05-31 13:00:00 Outpatient R LOUIS ARORA [facility] [id number] [facility] 2022-05-31 13:00:00 2022-05-31 13:00:00 Outpatient R LOUIS ARORA [facility] [id number] [facility] 2022-05-29 16:00:00 2022-05-29 16:34:44 Outpatient R KIRAN [facility] [id number] [facility] 2022-05-29 16:00:00 2022-05-29 16:34:44 Office Visit Kiran [facility] 1..840.114 350.1.13.10 4.2.7.2.686 [id number] [facility] 2022-05-29 16:00:00 2022-05-29 16:00:00 Outpatient R KIRAN [facility] [id number] [facility] 2022-05-29 16:00:00 2022-05-29 16:00:00 Outpatient R KIRAN [facility] [id number] [facility] 2022-03-07 00:00:00 2022-03-07 00:00:00 [facility] 1..840.114 350.1.13.10 4.2.7.2.686 [id number] [facility] 2022-02-22 14:15:00 2022-02-22 14:30:00 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 Visit Vls-Lab Ortiz [facility] [facility] 1..840.114 350.1.13.10 4.2.7.2.686 [id number] [facility] 2022-02-22 13:00:00 2022-02-22 13:50:44 Outpatient R LOUIS ARORA [facility] [id number] [facility] 2022-02-22 13:00:00 2022-02-22 13:50:44 Office Visit Ortiz [facility] 1..840.114 350.1.13.10 4.2.7.2.686 [id number] [facility] 2022-01-25 15:30:00 2022-01-25 16:11:55 Outpatient Mitchel [facility] [id number] [facility] 2022-01-25 15:30:00 2022-01-25 16:00:00 [facility] 1.84.114 350.1.13.10 4.2.7.2.686 [id number] [facility] 2022-01-25 15:30:00 2022-01-25 15:30:00 Outpatient Mitchel [facility] [id number] [facility] 2022-01-15 00:00:00 2022-01-15 00:00:00 Patient Secure Msg Tatum Garcia [facility] MULTISPEC IALTY CENTER AND [facility] 1.114 350.1.13.10 4.2.7.2.686 [id number] 220 [id number] [facility] 2022-01-12 00:00:00 2022-01-12 00:00:00 Telephone Louis Arora [facility] 1..114 350.1.13.10 4.2.7.2.686 [id number] [facility] 2022-01-09 00:00:00 2022-01-09 00:00:00 Telephone Tatum Garcia [facility] MULTISPEC [facility] .114 350.1.13.10 4.2.7.2.686 [id number] 220 [id number] [facility] 2022-01-08 00:00:00 2022-01-08 00:00:00 OFFICE VISIT ESTAB PT LEVEL 4 STLMLC STLMLC [id number] [facility] 2022-01-04 15:50:32 2022-01-04 23:59:00 Hospital Encounter Louis Arora [facility] 1.2.840.114 350.1.13.10 4.2.7.2.686 [id number] [facility] 2022-01-04 15:50:32 2022-01-04 15:50:32 Outpatient R DAVID ARORAHIF [facility] RAD [id number] [facility] 2022-01-04 13:30:00 2022-01-04 13:45:00 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 [facility] 1.2.840.114 350.1.13.10 4.2.7.2.686 [id number] [facility] 2022-01-04 12:30:00 2022-01-04 13:21:52 [facility] 1.2.840.114 350.1.13.10 4.2.7.2.686 [id number] [facility] 2022-01-04 12:30:00 2022-01-04 13:21:52 [facility] [id number] [facility] 2021-12-29 09:52:00 2021-12-31 18:39:00 [facility] [id number] [facility] 2021-12-29 09:52:00 2021-12-31 18:39:00 Emergency Natalia Delaney David [facility] 1.2.840.114 350.1.13.10 4.2.7.2.686 [id number] [facility] 2021-12-29 15:45:00 2021-12-29 15:45:00 Outpatient R [facility] [id number] [facility] 2021-12-22 00:00:00 2021-12-22 00:00:00 Telephone OrtizLouis [facility] SPECIAL[facility]ARE [facility] AT [facility] 1.84.114 350.1.13.10 4.2.7.2.686 [id number] [facility] 2021-12-20 12:51:31 2021-12-20 23:59:00 Outpatient R MONCHODOMENICO KATEOJA [facility] [id number] [facility] 2021-12-20 12:51:31 2021-12-20 23:59:00 Hospital Encounter Domenico Garciaoja [facility] 1.84.114 350.1.13.10 4.2.7.2.686 [id number] [facility] 2021-12-20 00:00:00 2021-12-20 00:00:00 Outpatient R DOMENICO GARCIAOJA [facility] [id number] [facility] 2021-12-14 05:32:00 2021-12-15 14:00:00 Outpatient STARLA GALARZA [facility] GIOVANNI [id number] [facility] 2021-12-14 05:32:00 2021-12-15 14:00:00 Emergency Milo Conroy David [facility] 1.840.114 350.1.13.10 4.2.7.2.686 [id number] [facility] 2021-12-14 05:32:00 2021-12-15 14:00:00 Outpatient STARLA GALARZA [facility] [id number] [facility] 2021-12-14 00:00:00 2021-12-14 00:00:00 Orders Only Doctor Unassigned, Urbanna [facility] 1.840.114 350.1.13.10 4.2.7.2.686 [id number] [facility] 2021-12-14 00:00:00 2021-12-14 00:00:00 Telephone Domenico Garciaoja [facility] MULTISPEC IALTY CENTER AND [facility] 1.2.840.114 350.1.13.10 4.2.7.2.686 [id number] [facility] 2021-12-13 00:00:00 2021-12-13 00:00:00 Telephone Tatum Garcia [facility] MULTISPEC IALTY CENTER [facility] 1.2.840.114 350.1.13.10 4.2.7.2.686 [id number] [facility] 2021-12-12 00:00:00 2021-12-12 00:00:00 Patient Secure M[facility] 1.2.840.114 350.1.13.10 4.2.7.2.686 [id number] [facility] 2021-12-11 15:00:00 2021-12-11 16:03:31 [facility] 1.2.840.114 350.1.13.10 4.2.7.2.686 [id number] [facility] 2021-12-11 15:00:00 2021-12-11 16:03:31 Outpatient R TATUM GARCIA [facility] [id number] [facility] 2021-12-11 15:00:00 2021-12-11 15:00:00 Outpatient R TATUM GARCIA [facility] [id number] [facility] 2021-12-08 00:00:00 2021-12-08 00:00:[address] [facility] 1.2.840.114 350.1.13.10 4.2.7.2.686 [id number] [facility] 2021-12-08 00:00:00 2021-12-08 00:00:00 Telephone Vinny Cook [facility] 1.840.114 350.1.13.10 4.2.7.2.686 [id number] [facility] 2021-12-08 00:00:00 2021-12-08 00:00:00 Telephone Vinny Cook [facility] 1.2840.114 350.1.13.10 4.2.7.2.686 [id number] [facility] 2021-12-07 16:15:00 2021-12-07 16:44:10 Outpatient R VINNY COOK KUMAR [facility] [id number] [facility] 2021-12-07 16:15:00 2021-12-07 16:30:00 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 Visit Vls-Lab Joey [facility] 1.840.114 350.1.13.10 4.2.7.2.686 [id number] [facility] 2021-12-07 15:30:00 2021-12-07 16:02:00 Outpatient R VINNY COOK [facility] [id number] [facility] 2021-12-07 15:30:00 2021-12-07 16:02:00 Office Visit Vinny Cook [facility] 1.2840.114 350.1.13.10 4.2.7.2.686 [id number] [facility] 2021-11-06 19:10:00 2021-11-07 02:25:00 Emergency X FILIPE LEMUS [facility] ERT [id number] [facility] 2021-11-06 19:10:00 2021-11-07 02:25:00 Emergency Filipe Lemus [facility] 1.840.114 350.1.13.10 4.2.7.2.686 [id number] [facility] 2021-10-05 00:00:00 2021-10-05 00:00:00 PREV VISIT EST AGE 40-64 STLMLC STLMLC [id number] [facility] 2021-06-04 00:00:00 2021-06-04 00:00[facility] [id number] 2021-05-24 13:57:03 2021-05-24 23:59:00 Hospital Encounter Marisol Jarek Jackeline [facility] Surgical Specialti es [place] 1.2.840.114 350.1.13.10 4.2.7.2.686 [id number] [facility] 2021-05-24 15:45:00 2021-05-24 14:05:46 Outpatient BARON MCWILLIAMS [facility] [id number] [facility] 2021-05-24 13:54:16 2021-05-24 14:05:46 Office Visit Jarek Campbell [facility] SURGICAL SPECIALTI ES [place] 1.2.840.114 350.1.13.10 4.2.7.2.686 [id number] [facility] 2021-05-10 15:46:27 2021-05-10 23:59:00 Hospital Encounter Jarek Campbell [facility] Surgical Specialti es [place] 1.2.840.114 350.1.13.10 4.2.7.2.686 [id number] [facility] 2021-05-10 16:15:00 2021-05-10 16:15:00 Outpatient BARON MCWILLIAMS [facility] [id number] [facility] 2021-05-10 15:33:59 2021-05-10 15:48:59 Office Visit Baron Garcia [facility] Surgical Specialti es [place] 1.2.840.114 350.1.13.10 4.2.7.2.686 [id number] [facility] 2021-05-10 00:00:00 2021-05-10 00:00:00 (TEL) STLMLC STLMLC [id number] [facility] 2021-04-19 00:00:00 2021-04-19 00:00:00 OFFICE VISIT EST PT LEVEL 3 STLMLC STLMLC [id number] [facility] 2021-04-12 14:37:25 2021-04-12 15:02:45 Office Visit Jarek Campbell [facility] 1.2.840.114 350.1.13.10 4.2.7.2.686 [id number] [facility] 2021-04-12 14:45:00 2021-04-12 14:45:00 Outpatient R JAREK CAMPBELL [facility] [id number] [facility] 2021-04-11 14:43:00 2021-04-11 16:42:00 Emergency Ethel Price [facility] 1.2.840.114 350.1.13.10 4.2.7.2.686 [id number] [facility] 2021-04-11 14:43:00 2021-04-11 14:43:00 Emergency X Ethel PRICE [facility] ERT [id number] [facility] 2021-04-01 05:25:00 2021-04-01 07:06:00 Emergency Natalia Delaney [facility] 1.2.840.114 350.1.13.10 4.2.7.2.686 [id number] [facility] 2021-04-01 05:25:00 2021-04-01 05:25:00 Emergency X NATALIA DELANEY [facility] ERT [id number] [facility] 2020-06-02 10:20:00 2020-06-02 10:20:00 Outpatient [facility] [id number] [facility] 2019-12-03 10:20:00 2019-12-03 10:20:00 Outpatient [facility] [id number] [facility] 2019-11-06 11:00:00 2019-11-06 11:00:00 Outpatient [facility] [id number] [facility] 2019-10-02 10:40:00 2019-10-02 10:40:00 Outpatient [facility] [id number] [facility] 2018-04-28 11:00:00 2018-04-28 11:00:00 Outpatient [facility] [id number] [facility] Results Test Description Test Time Test Comments Results Result Co mments Source Prothrombin Time / YES0547-89-46 21:15:16* Test Item Value Reference Range Interpretation Comme nts PROTIME PATIENT (test code = 5964-2) 13.4 See_Comment [Automated [employer]] The system which generated this result transmitted reference range: 12.0 - 14.7 Seconds. The reference range was not used to interpret this result as normal/abnormal. INR (test code = 6301-6) 1.1 Normal INR <1.1; Warfarin Therapeutic range 2.0 to 3.0 or 2.5 to 3.5, depending upon the indications. Lab Interpretation (test code = 79112-1) Normal [facility], AHXONC0822-85-09 21:09:59* Test Item Value Reference Range Interpretation Comme nts AMMONIA (test code = 3085609309) 9-33 L Lab Interpretation (test cod e = 69340-6) Abnormal [facility] WITH RZGF1908-37-40 21:06:58* Test Item Value Reference Range Interpretation Comme nts WBC (test code = 6690-2) 3.99 See_Comment L [Automated [employer]] The system which generated this result transmitted reference range: 4.30 - 11.10 10*3/?L. The reference range was not used to interpret this result as normal/abnormal. RBC (test code = 789-8) 4.83 See_Comment [Automated [employer] ge] The system which generated this result transmitted reference range: 3.93 - 5.25 10*6/?L. The reference range was not used to interpret this result as normal/abnormal. HGB (test code = 718-7) 15.5 g/dL 11.6-15.0 H HCT (test code = 4544-3) 47.8 % 35.7-45.2 H MCV (test code = 787-2) 99.0 fL 80.6-95.5 H MCH (test code = 785-6) 32.1 pg 25.9-32.8 MCHC (test code = 786-4) 32.4 g/dL 31.6-35.1 RDW-SD (test code = 90657-9) 48.2 fL 39.0-49.9 RDW-CV (test code = 788-0) 13.2 % 12.0-15.5 PLT (test code = 777-3) 115 See_Comment L [Automated [employer] ge] The system which generated this result transmitted reference range: 166 - 358 10*3/?L. The reference range was not used to interpret this result as normal/abnormal. MPV (test code = 58221-3) 10.6 fL 9.5-12.9 IPF % (test code = 5308720225) 5.3 % 1.3-7.7 Platelet count measured by fluorescence method. NRBC/100 WBC (test code = 2240859183) 0.0 See_Comment [Automated [employer]] The system which generated this result transmitted reference range: 0.0 - 10.0 /100 WBCs. The reference range was not used to interpret this result as normal/abnormal. NRBC x10^3 (test code = 8810447634) See_Comment [Automated [employer] ge] The system which generated this result transmitted reference range: 10*3/?L. The reference range was not used to interpret this result as normal/abnormal. GRAN MAT (NEUT) % (test code = 770-8) 63.6 % IMM GRAN % (test code = 3024299013) 0.80 % LYMPH % (test code = 736-9) 28.3 % MONO % (test code = 5905-5) 4.8 % EOS % (test code = 713-8) 1.0 % BASO % (test code = 706-2) 1.5 % GRAN MAT x10^3(ANC) (test code = 4849523293) 2.54 10*3/uL 1.88-7.09 IMM GRAN x10^3 (test code = 1296138543) 0.03 10*3/uL 0.00-0.06 LYMPH x10^3 (test code = 731-0) 1.13 10*3/uL 1.32-3.29 L MONO x10^3 (test code = 742-7) 0.19 10*3/uL 0.33-0.92 L EOS x10^3 (test code = 711-2) 0.04 10*3/uL 0.03-0.39 BASO x10^3 (test code = 704-7) 0.06 10*3/uL 0.01-0.07 Lab Interpretation (test code = 34643-8) Abnormal [facility] (74898)2023-04-23 20:56:15* Test Item Value Reference Range Interpretation Comme nts NA (test code = 8226188856) 139 mmol/L 135-145 K (test code = 2541523064) 4.6 mmol/L 3.5-5.0 CL (test code = 7997390620) 98 mmol/L 98-108 CO2 TOTAL (test code = 5501274957) 31 mmol/L 23-31 AGAP (test code = 3056789893) 10 2-16 BUN (test code = 9157305229) 25 mg/dL 7-23 H GLUCOSE (test code = 0957773630) 108 mg/dL 70-110 CREATININE (test code = 1020594902) 1.37 mg/dL 0.50-1.04 H TOTAL BILI (test code = 9298637996) 0.8 mg/dL 0.1-1.1 CALCIUM (test code = 7375328745) 9.3 mg/dL 8.6-10.6 T PROTEIN (test code = 7438232875) 8.8 g/dL 6.3-8.2 H ALBUMIN (test code = 0455187551) 4.8 g/dL 3.5-5.0 ALK PHOS (test code = 1200573663) 153 U/L 34-122 H ALTv (test code = 1742-6) 48 U/L 5-35 H AST(SGOT) (test code = 1297157768) 75 U/L 13-40 H eGFR (test code = 6949926623) 39.7 mL/min/1.73m2 KRAIG (test code = KRAIG) Association of Glomerular Filtration Rate (GFR) and Staging of Kidney Disease* + --+ --+ ------+| GFR (mL/min/1.73 m2) ?| With Kidney Damage ?| ?Without Kidney Damage+ --------+ --------+ +| ?>90 ?| ?Stage one ?| ? Normal ?+ ---+ ---+ -------+| ?60-89 ?| ?Stage two ?| ? Decreased GFR ? + --+ --+ ------+| ?30-59 ?| ?Stage three ?| ? Stage three ? + --+ --+ ------+| ?15-29 ?| ?Stage four ? | ? Stage four ?+ ---+ ---+ -------+| ?<15 (or dialysis) ? ?| ?Stage five ? | ? Stage five ?+ ---+ ---+ -------+ *Each stage assumes the associated GFR level has been in effect for at least three months. ?Stages 1 to 5, with or without kidney disease, indicate chronic kidney disease. Notes: Determination of stages one and two (with eGFR >59mL/min/1.73 m2) requires estimation of kidney damage for at least three months as defined by structural or functional abnormalities of the kidney, manifested by either:Pathological abnormalities or Markers of kidney damage (including abnormalities in the composition of the blood or urine or abnormalities in imaging tests). Lab Interpretation (test code = 47624-4) Abnormal [facility] Notes Date/Time Note Provider Source 2024-01-06 11:34:18 ybFFzU4QejrwP3hMPpvt WG3fYQHC31+SzNh ETf7skiJvTbsPUxNhslD6P7uJ7DzL8805-3 1:34:18 Nextpeert message sent to pt with results and recommendations per Dr. Menon. 95150-8Xtrizcvth encounter QarwTS5991-85-11R47:34:46Telephone encounter NoteTXT1.2.840.740575.1.13.104.2.7. 2.616783|[id number] for patient mqiw58756-5LswqADPYOPBBKOQVpwmwpwsc C-CDA narrative gspr424104314Uurwrd Phillips [address] Tt[id number] 2QEAOOMSANBIPOFRANGVUYY4932-03-31Y8 1:34:461.2.840.210357.1.72.3.15|1.2 .840.280574.1.13.104.2.7.2.727879_2 [id number] Amada Louie [employer] [facility] 2023-12-26 14:45:00 e8odbU2cxr8N6fXLFZ9V zwxOlK1kBPbtGM1 6eurme91exfGqE1lei4eX90H9i2yf5348-1 4:45:00 Images from the original note were not included.Venipuncture collection performed by clean technique on the back of right hand. Total of 1 attempts were made. Slight pressure and a bandage/dressing were applied to the site(s). The patient experienced no complications. The following specimens were processed according to instructions and sent to [facility] laboratories per lab order on 12/26/2023:LT BLUE 1SST 3REDLAV 1PPT 1DK GREEN (LiHep)DK GREEN (SodH)GRAYDK BLUE (K2)DK BLUE (S)ACDBlood CultureNIPT/NTD 29091-7Jzlfn XqwjXT7132-99-62P46:56:03Nurse NoteTXT1.2.840.291362.1.13.104.2.7. 2.419119|[id number] for patient gdui66108-0Ywezi NoteLNNARRATIVEFormatted C-CDA narrative text[id number] 4VSDUMYZIQIOWUEYDVUMTQO0426-09-41R1 4:56:031.2.840.788931.1.72.3.15|1.2 .840.371683.1.13.104.2.7.2.727879_2 [id number] [facility] 2023-12-25 15:39:53 Zl8ViBQSy8YOs994aeRT kAFLdzp4eaJA5Yi 8l7K8CIXZ7NqgvU0L4x3xZCeTxy781146-2 5:39:53 PA submitted to [facility]. Awaiting determination 31603-4Nfzybtpqs encounter EawoDD8125-57-47O69:40:11Telephone encounter NoteTXT1.2.840.625506.1.13.104.2.7. 2.174995|[id number] for patient kdjd31900-2YwbeVKBDBZLWLMSMtzvlwvbn C-CDA narrative [id number] 5SBJQNFQAGILOWWVZOOOAII2449-65-38O1 5:40:111.2.840.037862.1.72.3.15|1.2 .840.782133.1.13.104.2.7.2.727879_2 [id number] [facility] 2023-12-19 17:24:52 PgKCC8sxY1QgdK5NN64M dindAkMn1Gt+oce Qw5WFi5f9DU/QEBTLvgyBXy6EbfLA4213-0 7:24:52 Images from the original note were not included. 77154-1Nwdlqzoke encounter GojsZI9248-03-39I47:25:36Telephone encounter NoteTXT1.2.840.113014.1.13.104.2.7. 2.824111|2545254538NNUfxbkdysh for patient aqfi87193-5NuskDEUBDOAUWITKuttrucnq C-CDA narrative omfj209696551Skxgzv [address] Tvae[id number] 9JXFZQWGRNRSDBFGHZIHUUX6434-15-76Y6 7:25:361.2.840.697581.1.72.3.15|1.2 .840.250345.1.13.104.2.7.2.727879_2 [id number] [facility] 19:04:40 3mBnXja8CVBipfn+DN11 TduvHJA0XSGZq3j J0jOAH2Y7PwDAr1cb2VOxuJ6IZFqL5308-6 9:04:40 Based on her recent blood work, Will increase TIROSINT to 137 mcg daily2. Also risedronate 150 mg tablet; Take 1 tablet by mouth once every month for her osteopenia. She need to take weekly dose vitamin D consistently to help with osteopeniaHannah Menon, [facility] HOSPITALivision of Endocrinology and Metabolism 06086-4Rgujbhtxw encounter EkbmDO2283-12-51A82:11:18Telephone encounter NoteTXT1.2.840.558467.1.13.104.2.7. 2.109628|5809735900TBYpjjzihua for patient cqoj83691-2PaxhDJZHWRLOCYUJtvsnoukh C-CDA narrative text[id number] 1MWQPUOILUGBVBPIMUMGVXU0349-53-82P7 9:11:181.2.840.681538.1.72.3.15|1.2 .840.778568.1.13.104.2.7.2.727879_2 [id number] [facility] 2023-11-19 16:15:00 Dk36A5cgJbDBTPVbvlrZ CWMivjpmDCwtHnG pygiugsX2BdQrx44gY1+SFVgXVJAd5356-5 6:15:00 Images from the original note were not included.Venipuncture collection performed by clean technique on the left finger. Total of 2 attempts were made. Slight pressure and a bandage/dressing were applied to the site(s). The patient experienced no complications. The following specimens were processed according to instructions and sent to [facility] laboratories per lab order on today:LT BLUESST 2REDLAVPPTDK GREEN (LiHep)DK GREEN (SodH)GRAYDK BLUE (K2)DK BLUE (S)ACDBlood CultureNIPT/NTD 59897-3Xfmhz JihcQE0343-12-74I29:22:30Nurse NoteTXT1.2.840.403595.1.13.104.2.7. 2.276777|[id number] for patient nesn90086-1Giscx NoteLNNARRATIVEFormatted C-CDA narrative text[id number] 0SRKQJXDNROCKVEYNWTNHUI5860-34-87Z3 6:22:301.2.840.660500.1.72.3.15|1.2 .840.979919.1.13.104.2.7.2.727879_2 [id number] [facility] 2023-10-11 08:33:02 j2FF3Adrd4jvNjvW4Yq4 BiiY39XpB5VkmLz TUxtAryZPmUoZVGKVe1pZG7JnGLPt3895-4 08:33:02 Received 10/11/23 refill request for:Medication:Requested PrescriptionsPending Prescriptions Disp RefillsURSODIOL 250 mg tablet [Pharmacy Med Name: Ursodiol 250mg Tablet] 120 tablet 3Sig: TAKE TWO (2) TABLET(S) BY MOUTH TWICE A DAY.Last filled:06/10/23Follow up scheduled for :12/26/23Last office visit:05/30/23Continue with UrsodiolRefilled approval sent to:Pharmacy:[facility] [address] & [facility] [address]Ovmwg: [phone] Fmasbnhk per ID Guidelines 45525-0Ojcagfgyg encounter SxyjBP9823-00-72U42:48:09Telephone encounter NoteTXT1.2.840.259994.1.13.104.2.7. 2.976414|[id number] for patient lkce78021-3CudhLZYGGSCTVNWWgzzmkpfc C-CDA narrative [id number] Higgins MA[address] Zj[id number] 2NURXNQBWRKILPNTNJYEVHR2136-41-64I4 8:48:091.2.840.196729.1.72.3.15|1.2 .840.143304.1.13.104.2.7.2.727879_1 [id number] Kamryn Flowers MA [facility] 2023-07-04 16:25:49 3dZmKVnronY+Mb45hChT fbQ4cbTausoCoVL r9KsG3VB8Z8dfamfQ8h7sx/8+PAVN9962-0 07-04T16:25:49 No PA needed 68398-6Fcqnvdpmu encounter BdjeWO1456-04-88T23:25:55Telephone encounter NoteTXT1.2.840.218942.1.13.104.2.7. 2.504553|[id number] for patient [id number] N Rabalais [id number] 7EKVBFPALJJJPFJPQNRKOFI3621-43-19I1 6:25:551.2.840.489647.1.72.3.15|1.2 .840.447601.1.13.104.2.7.2.727879_1 [id number] Amada Kyle [facility] 2023-07-04 09:44:09 7Qi/qauiIGlDCxCN0XPs 92JcUj1WZazSBAx g0KJMtgqK3NgD6iW2OFPKsTWym9fY3546-3 09:44:09 PA completed. Waiting on decision 35478-6Ywiqhnwyn encounter ZdeaUE1476-23-56R34:44:19Telephone encounter NoteTXT1.2.840.237227.1.13.104.2.7. 2.751206|4099290555UDSwctioyjt for patient utno37923-9AdqwXL020408899Vjesay N Rabalais RNUTMBUT[id number] 5JPULKLVTQSCJRWHIKPZWFX1409-14-86W3 9:44:191.2.840.551801.1.72.3.15|1.2 .840.911476.1.13.104.2.7.2.727879_1 [id number] Amada Kyle RN [facility] 2023-07-04 07:48:25 DPWL40djrU/CRK6ImdtF fBcwIESX/oWYdKO 95R4GsdKs7RnTKUEzn4a4UKvpAa4K5514-2 07-04T07:48:25 Images from the original note were not included. 40359-1Iurnrpoyj encounter NgyyAQ2688-95-58D45:49:46Telephone encounter NoteTXT1.2.840.568349.1.13.104.2.7. 2.612387|2695230240MPPcszbgkfw for patient [id number] [id number] 7RBIXMLUNWSRFOZHJMUUWQX2558-33-74C2 7:49:461.2.840.436843.1.72.3.15|1.2 .840.536204.1.13.104.2.7.2.727879_1 [id number] Natalia Bee [facility] 2023-07-01 16:00:00 grcujpyp8f123Lk9PtCW gYUo7If57iXFTUn iBTsjwwkygSAcRTEZnQZCaJwFfP1b2162-3 07-01T16:00:00 Images from the original note were not included.Pt is here to complete all labs for Nwajei,Michelle,AGPCNP. Kirk Nolen 07/01/2023 2:31 PMVenipuncture collection performed by clean technique on the right hand. Total of 2 attempts were made. Slight pressure and a bandage/dressing were applied to the site(s). The patient experienced no complications. The following specimens were processed according to instructions and sent to [facility] laboratories per lab order on 07/01/2023: LT BLUE SST 1 RED LAV PPT DK GREEN (LiHep) DK GREEN (SodH) PADILLA DK BLUE (K2) DK BLUE (S) ACD Blood Culture NIPT/NTD 21225-7Rcazi NdueCM8604-14-57G88:42:16Nurse NoteTXT1.2.840.482966.1.13.104.2.7. 2.505205|[id number] for patient wrey98514-0Psygx NoteLNUT[address] Os[id number] 9XZGLDGWCBWRUCKHHFLIJWC4898-31-46B8 4:42:161.2.840.806685.1.72.3.15|1.2 .840.107529.1.13.104.2.7.2.727879_1 [id number] [facility] 2023-06-25 10:34:22 vgKV61lI9rxyVAWbWUlh DTgE6MWCp5NBssz ta8SvVQ0yLeGYfTMoIzGiSXwCydPj8823-0 06-25T10:34:22 Called patient about her low Vitamin D Labs, she reports she hasn't been taking her medication because she ran out. Her Free T4 levels are also very low and her TSH levels are also elevated because she reports she ran out of that medication as well.Re-ordered the followin. Vitamin D deficiency- ergocalciferol, vitamin d2, 1,250 mcg (50,000 unit) capsule; Take 1 capsule by mouth weekly. Dispense: 12 capsule; Refill: 12. 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 2.200120|[id number] for patient wasg17803-6GqnhFQKRJTCQTO[address] Jw[id number] 8MSTTFTMCXVOGLQIHRLRHPK5745-63-02U7 0:37:491.2.840.550829.1.72.3.15|1.2 .840.090005.1.13.104.2.7.2.727879_1 [id number] [facility] 2023-05-30 12:30:00 yw4S/IpQd3LFrABqb29v WYSindlQ6DPaCIR Gm6wpPuACLbAxvIft5hBiViHmgRkU5638-5 2:30:00 Images from the original note were not included.Venipuncture collection performed by clean technique on the right forearm. Total of 2 attempts were made. Slight pressure and a bandage/dressing were applied to the site(s). The patient experienced no complications. The following specimens were processed according to instructions and sent to [facility] laboratories per lab order on 05/30/23: Hard stick LT BLUE 3 SST RED LAV 2 PPT DK GREEN (LiHep) DK GREEN (SodH) PADILLA DK BLUE (K2) DK BLUE (S) ACD Blood Culture NIPT/NTD 72508-9Fktfq IuvoTJ9531-47-83O96:51:57Nurse NoteTXT1.2.840.395604.1.13.104.2.7. 2.575351|[id number] for patient bzns27815-0Ikhqc NoteLN[id number] 1WKREIIFUJTTTVKGPUXSNOJ8956-29-95L4 2:51:571.2.840.874049.1.72.3.15|1.2 .840.678239.1.13.104.2.7.2.727879_1 [id number] [facility] 2023-05-21 15:00:00 nHRpgO4SLegFpT0Kzpkf b3XUvQc7zO5fIPf 9CU6H3Nx/K6MUlVjS4IJ48KJ4Y/HT6459-4 05-21T15:00:00 Images from the original note were not included.Venipuncture collection performed by clean technique on the left anticubitus. Total of 1 attempts were made. Slight pressure and a bandage/dressing were applied to the site(s). The patient experienced no complications. The following specimens were processed according to instructions and sent to [facility] laboratories per lab order on 05/21/2023: LT BLUE SST 2 RED LAV PPT DK GREEN (LiHep) DK GREEN (SodH) PADILLA DK BLUE (K2) DK BLUE (S) ACD Blood Culture NIPT/NTD 69909-0Gygun QwllEW8049-02-08Q27:43:07Nurse NoteTXT1.2.840.503890.1.13.104.2.7. 2.349084|[id number] for patient hfua77935-6Vaxdi Note[id number] 2SUQTJZRFDNHCPTQWUUYWMT2581-50-72V5 5:43:071.2.840.171108.1.72.3.15|1.2 .840.351229.1.13.104.2.7.2.727879_1 [id number] [facility] 2023-05-21 14:30:00 94UDPHY5vu4kNZoHTlMl kFW1OFNo08yQfg8 0UnR3fHDgeinYczlEJNiV15MCRpva9981-6 4:30:00 Addended by: MICHELLE BRICENO on: 05/22/2023 11:01 AM Modules accepted: Orders [id number] IqikqdouWH7839-46-12L66:01:14Addend DocumentTXT1.2.840.482478.1.13.104. 2.7.2.861858|[id number] for patient rmjy11300-5XymzZCCJXLCKMS[id number] 0QRJZOGGGPWTJAHHRQYTHGP0724-61-36O5 1:01:141.2.840.828325.1.72.3.15|1.2 .840.382774.1.13.104.2.7.2.727879_1 [id number] [facility] 2023-05-21 14:30:00 BcyrUo9TLcTN0w99mTDf hUpHuBbt+oCywaF szGeegoKHaMc8cUMgTo0sUIvC5H1O7574-0 4:30:00 Addended by: MICHELLE BRICENO on: 07/03/2023 04:57 PM Modules accepted: Orders [id number] VtgoodokIQ5227-62-40D35:57:02Addend DocumentTXT1.2.840.930590.1.13.104. 2.7.2.742742|[id number] for patient bjir12295-9OqwgEZFBINAEJU[id number] 9QRVFIADPOGYGIQNUIPSTYG4342-04-28X8 6:57:021.2.840.978818.1.72.3.15|1.2 .840.247660.1.13.104.2.7.2.727879_1 [id number] [facility]"
[2024-01-12 03:39] LABS: Absolute Basophils 0.1 K/uL (0-0.5); Absolute Eosinophils 0.2 K/uL (0-0.5); Absolute Lymphocytes (CBC) 4.1 K/uL (0.7-4.9); Absolute Monocytes 0.6 K/uL (0.1-1.3); Absolute Neutrophil 4.6 K/uL (1.8-8.0); Basophils % 0.7 % (0-1.3); Hematocrit 42.9 % (36.0-45.0); Hemoglobin 14.4 g/dL (12.0-15.0); Lymphocytes % 42.6 % (15.3-44.8); MCH 31.4 pg (27.0-35.0); MCHC 33.6 g/dL (32.0-36.0); MCV 93.6 fL (80-100); Monocytes % 5.9 % (3.3-12.3); Neutrophils % 48.8 % (41.7-73.7); Platelets 161 thou/uL (152-406); RBC Red Blood Cell Count 4.58 M/uL (3.86-4.86); Red Cell Distribution Width 14.8 % (12.1-15.2)
[2024-01-12 03:51] LABS: Albumin 3.6 g/dL (3.4-5.0); Albumin/Globulin Ratio 0.7 (1.1-1.8); Anion Gap 9.3 mEq/L (5.0-15.0); Bilirubin Direct 0.1 mg/dL (0-0.2); Bilirubin Indirect, Calculated 0.4 mg/dL (0.2-0.8); Bilirubin Total 0.5 mg/dL (0.2-1.0); Protein, Total 8.6 g/dL (6.4-8.2); Troponin High Sensitivity 20.6 pg/mL (<58.9)
[2024-01-12 03:55] LABS: Magnesium 2.6 mg/dL (1.6-2.4); Potassium 4.3 mEq/L (3.5-5.1)
--- NOTE | 2024-01-12 06:01 | ER ---
Nurse's Notes [facility] [place], [place] Name: Samantha Smart Age: 58 yrs Sex: Female : 1965 Arrival Date: 01/12/2024 Time: 01:34 Bed 7 Private MD: Diagnosis: COPD/ Chronic obstructive pulmonary disease, unspecified Presentation: 01/11 01:40 Chief complaint: EMS states: was told to drink more fluids on Saturday. Has since become tm6 more short of breath. Took home albuterol [employer]. Coronavirus screen: Vaccine status: Patient reports receiving the 2nd dose of the covid vaccine. Ebola Screen: Patient negative for fever greater than or equal to 101.5 degrees Fahrenheit, and additional compatible Ebola Virus Disease symptoms Patient denies exposure to infectious person. Patient denies travel to an Ebola-affected area in the 21 days before illness onset. No symptoms or risks identified at this time. Initial Sepsis Screen: Does the patient meet any 2 criteria? No. Patient's initial sepsis screen is negative. Does the patient have a suspected source of infection? No. Patient's initial sepsis screen is negative. Risk Assessment: Do you want to hurt yourself or someone else? Patient reports no desire to harm self or others. Onset of symptoms was January 10, 2024. 01:40 Method Of Arrival: EMS: [email or web address] tm6 01:40 Acuity: [place] 3 tm6 Triage Assessment: 01:45 General: Appears in no apparent distress. uncomfortable, Behavior is calm, cooperative. tm6 Pain: Denies pain. EENT: No signs and/or symptoms were reported regarding the EENT system. Neuro: Level of Consciousness is awake, alert, obeys commands, Oriented to person, place, time, situation. Cardiovascular: Capillary refill < 3 seconds Patient's skin is warm and dry. Respiratory: Reports shortness of breath on exertion Airway is patent Respiratory effort is even, unlabored, Respiratory pattern is regular, symmetrical, Onset: The symptoms/episode began/occurred yesterday, the patient has mild shortness of breath. GI: Abdomen is flat, non-distended. : No signs and/or symptoms were reported regarding the genitourinary system. Derm: No signs and/or symptoms reported regarding the dermatologic system. Musculoskeletal: No signs and/or symptoms reported regarding the musculoskeletal system. Historical: - Allergies: 01:45 Iodine; tm6 01:45 Sulfa (Sulfonamide Antibiotics); tm6 01:45 Keflex; tm6 - PMHx: 01:45 COPD; Emphysema; Cirrhosis of liver; tm6 - PSHx: 01:45 None; tm6 - Immunization history:: Adult Immunizations up to date, Client reports receiving the 2nd dose of the Covid vaccine, Flu vaccine is not up to date. - Social history:: Smoking status: Patient/guardian denies using tobacco, the patient reports quitting approximately 5 years ago, Patient/guardian denies using alcohol. - Family history:: not pertinent. Screenin:47 [facility] ED Fall Risk Assessment (Adult) History of falling in the last 3 months, tm6 including since admission No falls in past 3 months (0 pts). Abuse screen: Denies threats or abuse. Denies injuries from another. Nutritional screening: No deficits noted. Tuberculosis screening: No symptoms or risk factors identified. Assessment: 01:47 Reassessment: see triage assessment. Cardiovascular:. tm6 02:57 Reassessment: Patient appears in no apparent distress at this time. No changes from km8 previously documented assessment. Patient and/or family updated on plan of care and expected duration. Pain level reassessed. Patient is alert, oriented x 3, equal unlabored respirations, skin warm/dry/pink. General: Appears in no apparent distress. Neuro: Level of Consciousness is awake, alert, obeys commands, Oriented to person, place, time, situation. Cardiovascular: Patient's skin is warm and dry. Rhythm is regular. Respiratory: Airway is patent Respiratory effort is even, unlabored, Respiratory pattern is regular, symmetrical. 03:55 Reassessment: Patient appears in no apparent distress at this time. No changes from km8 previously documented assessment. Patient and/or family updated on plan of care and expected duration. Pain level reassessed. Patient is alert, oriented x 3, equal unlabored respirations, skin warm/dry/pink. 06:25 Reassessment: Patient appears in no apparent distress at this time. Patient and/or km8 family updated on plan of care and expected duration. Pain level reassessed. Patient is alert, oriented x 3, equal unlabored respirations, skin warm/dry/pink. Patient states feeling better. Patient states symptoms have improved. Vital Signs: 01:40 BP 157 / 104; Pulse 78; Resp 19; Temp 96.9(TE); Pulse Ox 95% on 4 lpm NC; Weight 66.68 tm6 kg; Height 5 ft. 2 in. ; Pain 0/10; 02:00 BP 166 / 111; Pulse 80; Resp 16; Pulse Ox 94% on 2 lpm NC; km8 02:30 BP 158 / 98; Pulse 75; Resp 16; Pulse Ox 100% on Nebulizer Mask; km8 03:00 BP 140 / 91; Pulse 82; Resp 16; Pulse Ox 98% on 4 lpm NC; km8 03:30 BP 143 / 92; Pulse 76; Resp 18; Pulse Ox 96% on 4 lpm NC; km8 06:27 BP 147 / 91; Pulse 81; Resp 20; Pulse Ox 88% on 2 lpm NC; Pain 0/10; tm6 01:40 Body Mass Index 26.89 (66.68 kg, 157.48 cm) tm6 01:40 Pain Scale: Adult tm6 06:27 Pain Scale: Adult tm6 ED Course: 01:36 Patient arrived in ED. rv1 01:36 Jim Benson MD is Attending Physician. rt 01:39 Susy Mary, HUMAIRA is Primary Nurse. tm6 01:45 Triage completed. tm6 01:45 Arm band placed on right wrist. tm6 01:47 Patient has correct armband on for positive identification. Placed in gown. Bed in low tm6 position. Call light in reach. Side rails up X2. Provided Education on: plan of care. Client placed on continuous cardiac and pulse oximetry monitoring. NIBP monitoring applied. Pulse ox on. NIBP on. Door closed. Noise minimized. Warm blanket given. 02:11 Troponin HS Sent. jb4 02:11 NT PRO-BNP Sent. jb4 02:11 LFT's Sent. jb4 02:11 Magnesium Sent. jb4 02:11 CBC with Diff Sent. jb4 02:11 Basic Metabolic Panel Sent. jb4 02:15 XRAY Chest (1 view) In Process Unspecified. EDMS 06:36 No provider procedures requiring assistance completed. IV discontinued, intact, km8 bleeding controlled, No redness/swelling at site. Pressure dressing applied. Administered Medications: 02:25 Drug: Alum-Mag Hydroxide-Simeth PO Suspension (200 mg-200 mg-20 mg/5 mL) 30 ml PO once jb4 Route: PO; 04:12 Follow up: Response: No adverse reaction km8 02:28 Drug: DuoNeb Nebulize (3:1) (2.5 mg - 0.5 mg) 3 ml Nebulizer once Route: Nebulizer; jb4 04:12 Follow up: Response: No adverse reaction km8 02:28 Drug: MethylPrednisoLONE IVP 125 mg IVP once Route: IVP; Site: right antecubital; jb4 04:12 Follow up: Response: No adverse reaction km8 02:28 Drug: Famotidine IVP 20 mg IVP once; dilute with 10 mL 0.9% NaCl; give over 2 minutes jb4 Route: IVP; Site: right antecubital; 04:12 Follow up: Response: No adverse reaction km8 Medication: 01:47 VIS not applicable for this client. tm6 Outcome: 06:00 Discharge ordered by . rt 06:36 Discharged to home via wheelchair, with family, 8 06:36 Condition: good 06:36 Discharge instructions given to patient, family, Instructed on discharge instructions, follow up and referral plans. medication usage, Demonstrated understanding of instructions, follow-up care, medications, Prescriptions given X 1, 06:37 Patient left the ED. tm6 Signatures: Dispatcher [employer] EDMS Tristen Zarate RN RN jb4 Jim Benson MD MD rt Danette Brown rv1 Zoila Daniels RN RN km8 Susy Mary RN RN tm6 Corrections: (The following items were deleted from the chart) 03:57 02:00 BP 166 / 111; Pulse 80bpm; Resp 16bpm; Pulse Ox 94% RA; 8 km8 03:57 02:30 BP 158 / 98; Pulse 75bpm; Resp 16bpm; Pulse Ox 100% RA; 8 km8
--- NOTE | 2024-01-12 06:01 | EDPHYS ---
Physician Documentation [facility] Name: Samantha Smart Age: 58 yrs Sex: Female : 1965 Arrival Date: 01/12/2024 Time: 01:34 Bed 7 Private MD: ED Physician Jim Benson HPI: 01/11 03:08 This 58 yrs old Female presents to ER via EMS with complaints of Shortness Of Breath. rt 03:09 Patient with history of COPD presents to the ED with dyspnea starting about 3 days ago. rt Patient reports a reactive cough. Denies fever, chills. Does report she describes to be a indigestion. Denies other acute complaints this time, symptoms are moderate in severity, no other aggravating relieving factors.. Historical: - Allergies: 01:45 Iodine; tm6 01:45 Sulfa (Sulfonamide Antibiotics); tm6 01:45 Keflex; tm6 - PMHx: 01:45 COPD; Emphysema; Cirrhosis of liver; tm6 - PSHx: 01:45 None; tm6 - Immunization history:: Adult Immunizations up to date, Client reports receiving the 2nd dose of the Covid vaccine, Flu vaccine is not up to date. - Social history:: Smoking status: Patient/guardian denies using tobacco, the patient reports quitting approximately 5 years ago, Patient/guardian denies using alcohol. - Family history:: not pertinent. ROS: 03:09 Constitutional: Negative for fever, chills, and weight loss, Cardiovascular: Negative rt for chest pain, palpitations, and edema, Abdomen/GI: Negative for abdominal pain, nausea, vomiting, diarrhea, and constipation, MS/Extremity: Negative for injury and deformity, Skin: Negative for injury, rash, and discoloration, Neuro: Negative for headache, weakness, numbness, tingling, and seizure, 03:09 Respiratory: Positive for cough, shortness of breath, wheezing, Exam: 03:09 Constitutional: This is a well developed, well nourished patient who is awake, alert, rt and in no acute distress. Head/Face: Normocephalic, atraumatic. Chest/axilla: Normal chest wall appearance and motion. Nontender with no deformity. No lesions are appreciated. Cardiovascular: Regular rate and rhythm with a normal S1 and S2. No gallops, murmurs, or rubs. Normal PMI, no JVD. No pulse deficits. Abdomen/GI: Soft, non-tender, with normal bowel sounds. No distension or tympany. No guarding or rebound. No evidence of tenderness throughout. Skin: Warm, dry with normal turgor. Normal color with no rashes, no lesions, and no evidence of cellulitis. MS/ Extremity: Pulses equal, no cyanosis. Neurovascular intact. Full, normal range of motion. Neuro: Awake and alert, GCS 15, oriented to person, place, time, and situation. Cranial nerves II-XII grossly intact. Motor strength 5/5 in all extremities. Sensory grossly intact. Cerebellar exam normal. Normal gait. 03:09 Respiratory: Wheezes heard on all lung georges, no respiratory distress, Vital Signs: 01:40 BP 157 / 104; Pulse 78; Resp 19; Temp 96.9(TE); Pulse Ox 95% on 4 lpm NC; Weight 66.68 tm6 kg; Height 5 ft. 2 in. ; Pain 0/10; 02:00 BP 166 / 111; Pulse 80; Resp 16; Pulse Ox 94% on 2 lpm NC; km8 02:30 BP 158 / 98; Pulse 75; Resp 16; Pulse Ox 100% on Nebulizer Mask; km8 03:00 BP 140 / 91; Pulse 82; Resp 16; Pulse Ox 98% on 4 lpm NC; km8 03:30 BP 143 / 92; Pulse 76; Resp 18; Pulse Ox 96% on 4 lpm NC; km8 06:27 BP 147 / 91; Pulse 81; Resp 20; Pulse Ox 88% on 2 lpm NC; Pain 0/10; tm6 01:40 Body Mass Index 26.89 (66.68 kg, 157.48 cm) tm6 01:40 Pain Scale: Adult tm6 06:27 Pain Scale: Adult tm6 MDM: 01:37 Patient medically screened. rt 06:45 Differential diagnosis: COPD, CHF, pneumonia. Data reviewed: vital signs, nurses notes, rt lab test result(s), EKG, radiologic studies. Consideration of Admission/Observation Escalation of care including admission/observation considered. Patient with hypoxia with ambulating. Recommend the patient stay for admission. She states that she does not wish stay in the hospital. She states that she feels better and is comfortable with discharge. Give the patient strict return precautions and she understands that she may return if she changes her mind or has worsening of her condition.. I considered the following discharge prescriptions or medication management in the emergency department Medications were administered in the Emergency Department. See MAR. Independent interpretation of the following test(s) in the Emergency Department X-Ray: My interpretation is No consolidation seen on interpretation of x-ray images. Test considered but Not performed: CT: Low suspicion for pulmonary embolism, CT angiogram not indicated. Care significantly affected by the following chronic conditions: Chronic Obstructive Pulmonary Disease. Counseling: I had a detailed discussion with the patient and/or guardian regarding the historical points, exam findings, and any diagnostic results supporting the discharge/admit diagnosis, lab results, radiology results, the need for further work-up and treatment in the hospital, to return to the emergency department if symptoms worsen or persist or if there are any questions or concerns that arise at home. Response to treatment: the patient's symptoms have markedly improved after treatment. Refusal of service: The patient/guardian displays adequate decision making capability and despite a detailed discussion of alternatives, benefits, risks, and consequences refuses: Admission to the hospital for further work-up and treatment. 01/11 01:48 Order name: Basic Metabolic Panel; Complete Time: 03:55 rt 01/11 01:48 Order name: CBC with Diff; Complete Time: :55 rt 01/11 01:48 Order name: LFT's; Complete Time: 03:55 rt 01/11 01:48 Order name: Magnesium; Complete Time: 03:55 rt 01/11 01:48 Order name: NT PRO-BNP; Complete Time: 03:55 rt 01/11 01:48 Order name: Troponin HS; Complete Time: 03:55 rt 01/11 01:48 Order name: XRAY Chest (1 view) rt 01/11 01:48 Order name: EKG; Complete Time: :49 rt 01/11 01:48 Order name: Cardiac monitoring; Complete Time: 02: rt 01/11 01:48 Order name: EKG - Nurse/Tech; Complete Time: 02:11 rt 01/11 01:48 Order name: IV Saline Lock; Complete Time: 02: rt 01/11 01:48 Order name: Labs collected and sent; Complete Time: 02: rt 01/11 01:48 Order name: O2 Per Protocol; Complete Time: 02:11 rt 01/11 01:48 Order name: O2 Sat Monitoring; Complete Time: 02:11 rt 01/11 02:27 Order name: Misc. Order: RECOLLECT ALL LABS; Complete Time: 02:56 rv1 Administered Medications: 02:25 Drug: Alum-Mag Hydroxide-Simeth PO Suspension (200 mg-200 mg-20 mg/5 mL) 30 ml PO once jb4 Route: PO; 04:12 Follow up: Response: No adverse reaction km8 02:28 Drug: DuoNeb Nebulize (3:1) (2.5 mg - 0.5 mg) 3 ml Nebulizer once Route: Nebulizer; jb4 04:12 Follow up: Response: No adverse reaction km8 02:28 Drug: MethylPrednisoLONE IVP 125 mg IVP once Route: IVP; Site: right antecubital; jb4 04:12 Follow up: Response: No adverse reaction km8 02:28 Drug: Famotidine IVP 20 mg IVP once; dilute with 10 mL 0.9% NaCl; give over 2 minutes jb4 Route: IVP; Site: right antecubital; 04:12 Follow up: Response: No adverse reaction km8 Disposition Summary: 01/12/24 06:00 Discharge Ordered Notes: Location: Home rt Problem: new rt Symptoms: have improved rt Condition: Stable rt Diagnosis - COPD/ Chronic obstructive pulmonary disease, unspecified rt Followup: rt - With: Private Physician - When: 2 - 3 days - Reason: Followup: rt - With: Emergency Department - When: As needed - Reason: Worsening of condition Discharge Instructions: - Discharge Summary Sheet rt - Chronic Obstructive Pulmonary Disease rt Forms: - Medication Reconciliation Form rt - Thank You Letter rt - Antibiotic Education rt - Prescription Opioid Use rt - Patient Portal Instructions rt - Leadership Thank You Letter rt Prescriptions: - Prednisone 20 mg Oral Tablet - take 2 tablets ORAL route once daily for 5 days; 10 tablet; Refills: 0, Product rt Selection Permitted Signatures: Dispatcher [employer] Tristen Aviles RN RN jb4 Jim Benson MD MD rt Danette Brown rv1 Susy Mary RN RN tm6 Zoila Daniels RN km8
[2024-01-12 06:52] VITALS: BP 143/92; TEMP 96.9; O2SAT 96
--- NOTE | 2024-01-13 11:15 | RAD REPORT ---
EXAM DESCRIPTION: XR Chest, 1 View CLINICAL HISTORY: The patient is 58 years old and is Female; DYSPNEA TECHNIQUE: Frontal view of the chest. COMPARISON: No relevant prior studies available. FINDINGS: Lungs: Unremarkable. No consolidation. Pleural space: Unremarkable. No pneumothorax. Heart: Unremarkable. Mediastinum: Unremarkable. Normal mediastinal contour. Bones/joints: No acute findings. IMPRESSION: No acute findings in the chest. Electronically signed by: Marc Rosenbaum MD 01/12/2024 02:50 AM CDT Due to temporary technical issues with the PACS/Fluency reporting system, reports are being signed by the in house radiologist without review as a courtesy to ensure prompt reporting. The interpreting r adiologist is fully responsible for the content of the report.
== END ==
LOC: ER 01:34
DX: J44.9 Chronic obstructive pulmonary disease, unspecified (principal); Z88.1 Allergy status to other antibiotic agents; Z88.2 Allergy status to sulfonamides; Z91.048 Other nonmedicinal substance allergy status
CPT/HCPCS: 85025; 80048; 36415; 83735; 80076; 84484; 83880; 71045; J7613; J7644; J2930; 94640; 96374; 96375; 99285